=== PATIENT | female | born 1965 | race Caucasian/White ===

== ENCOUNTER → 2016-07-16 | Outpatient (CLI) | payer BC ==
--- NOTE | 2016-07-16 16:49 | US ---
EXAMINATION TYPE: US thyroid st tissue head/neck DATE OF EXAM: 07/16/2016 4:02 PM COMPARISON: 04/09/2016 CLINICAL HISTORY: 51-year-old female E04.1 Thyroid nodule. Follow-up exam. TECHNIQUE: Multiple sonographic images of the thyroid gland are obtained. FINDINGS: GLAND SIZE: Right Lobe: 4.0 x 1.6 x 1.3 cm Overall Parenchyma: homogenous Left Lobe: 4.3 x 1.2 x 1.2 cm Overall Parenchyma: homogeneous Isthmus Thickness: 0.2 cm NODULES RIGHT: # of nodules measured on right: 1 1. 0.2 X 0.2 x 0.3 cm hypoechoic solid nodule at the upper pole with well-defined margins. This nod ule is wider than tall and shows no intranodular vascularity. Prior size: 0.4 x 0.2 x 0.3 cm LEFT: # of nodules measured on left: 1 1. 0.2 X 0.2 x 0.2 cm hypoechoic solid nodule at the mid pole with well-defined margins. This nodu le is wider than tall and shows no intranodular vascularity. Prior size: 0.3 x 0.2 x 0.2 cm ISTHMUS: # of nodules measured in the isthmus: 0 Bilateral neck scanned, no abnormal lymphadenopathy noted. IMPRESSION: A tiny subcentimeter nodule on each side measuring 3 mm on the right and 2 mm on the left, not signif icantly changed.
== END | disposition home or self-care (01) ==
LOC: RADUSWWP 15:37
PROVIDERS: ATTEND Family Medicine
DX: E04.2 Nontoxic multinodular goiter (principal)
CPT/HCPCS: 76536

== ENCOUNTER → 2016-07-16 | Outpatient (CLI) | payer BC ==
--- NOTE | 2016-07-20 08:06 | MM ---
Reason for exam: screening (asymptomatic). Last mammogram was performed 1 year and 3 months ago. History: Patient is postmenopausal. Family history of breast cancer in maternal aunt at age 53 and breast cancer in maternal cousin. Reductions of both breasts, March 2012. Benign right mammotome panel of the right breast, May 25, 2010. Benign excisional biopsy of the right breast, July 24, 2007. Benign US right core biopsy of the right breast, July 14, 2007. Took hormonal contraceptives for 5 years beginning at age 16. Physical Findings: A clinical breast exam by your physician is recommended on an annual basis and results should be correlated with mammographic findings. MG 3D Screening Mammo W/Cad Bilateral CC and MLO view(s) were taken. Prior study comparison: April 21, 2015, bilateral MG 3d screening mammo w/cad. September 06, 2014, bilateral MG diagnostic mammo w CAD DEAN. Previous mammotome biopsy in the right breast. No significant changes when compared with prior studies. ASSESSMENT: Benign, BI-RAD 2 RECOMMENDATION: Routine screening mammogram of both breasts in 1 year.
== END | disposition home or self-care (01) ==
LOC: RADMAMWWP 15:34
PROVIDERS: ATTEND Family Medicine
DX: Z12.31 Encounter for screening mammogram for malignant neoplasm of breast (principal)
CPT/HCPCS: 77063; G0202

== ENCOUNTER → 2017-02-04 | Outpatient (CLI) | payer BC ==
--- NOTE | 2017-02-04 16:08 | MR ---
EXAMINATION TYPE: MR lumbar spine wo/w con DATE OF EXAM: 02/04/2017 COMPARISON: MR lumbar spine dated 09/17/2015 HISTORY: Low back pain radiating to the right lower extremity TECHNIQUE: Multiplanar, multisequence images of the lumbar spine were acquired utilizing 10 mL intravenous Gadav ist contrast. Lumbar segments are intact the transitional vertebrae is again noted at the lumbosacral junction. Mul tilevel intervertebral disc desiccation and loss of intervertebral disc height is again seen at L4-5 and L5-S1. No paraspinal masses are identified. Conus medullaris has a normal appearance. No abnorm al enhancement on postcontrast images. L1-L2: Normal disc appearance without desiccation. No herniation, protrusion or disc bulging. No ca nal stenosis is present. Foramina are patent bilaterally. L2-L3: Normal disc appearance without desiccation. No herniation, protrusion or disc bulging. No ca nal stenosis is present. Foramina are patent bilaterally. L3-L4: Small broad-based disc bulge is seen with right lateral small annular fissure. Mild facet arth ropathy and ligamentum flavum buckling are seen. No spinal canal stenosis or neural foraminal narrowi ng. L4-L5: Broad-based right eccentric disc bulge is seen in combination with facet arthropathy creating mild right neural foraminal narrowing. Ligamentum flavum buckling is noted. Spinal canal and left moody ral foramen are patent. Small superior T2/T1 hyperintense vertebral body hemangioma seen at this leve l. L5-S1: Type II Modic degenerative endplate changes are appreciated. There is a broad-based disc bulge and facet arthropathy without neural foraminal narrowing or spinal canal stenosis. IMPRESSION: 1. No discrete disc herniation or spinal canal stenosis. 2. Multilevel degenerative disc disease with a right eccentric disc bulge at L4-L5 creating mild righ t neural foraminal narrowing.
== END | disposition home or self-care (01) ==
LOC: RADMRIMAIN 13:41
PROVIDERS: ATTEND Psychiatry & Neurology Neurology
DX: M99.73 Connective tissue and disc stenosis of intervertebral foramina of lumbar region (principal); M51.16 Intervertebral disc disorders with radiculopathy, lumbar region
CPT/HCPCS: 72158; A9581

== ENCOUNTER → 2017-02-04 | Outpatient (CLI) | payer BC ==
--- NOTE | 2017-02-05 14:03 | US ---
EXAMINATION TYPE: US thyroid st tissue head/neck DATE OF EXAM: 02/04/2017 COMPARISON: 07/16/2016 and 04/08/2016 CLINICAL HISTORY: E04.1 Nontoxic single thyroid nodule. GLAND SIZE: Right Lobe: 3.9 x 0.9 x 1.1 cm Overall Parenchyma: heterogenous Left Lobe: 3.7 x 1.2 x 1.1 cm Overall Parenchyma: heterogeneous Isthmus Thickness: 0.2 cm NODULES RIGHT: # of nodules measured on right: 1 1. 0.2 X 0.2 x 0.3 cm hypoechoic solid nodule at the upper pole with well-defined margins; . This nodule is wider than tall and shows no intranodular vascularity. Prior size: 0.2 x 0.2 x 0.3 cm LEFT: # of nodules measured on left: 1. 0.3 X 0.2 x 0.3 cm hypoechoic solid nodule at the upper/mid pole with well-defined margins; . T his nodule is taller than wide and shows no intranodular vascularity. Prior size: 0.2 x 0.2 x 0.2 cm ISTHMUS: # of nodules measured in the isthmus: 0 Bilateral neck scanned, no evidence of lymphadenopathy. IMPRESSION: Similar appearing bilateral subcentimeter thyroid nodules with no significant change in a nonenlarged thyroid gland.
== END | disposition home or self-care (01) ==
LOC: RADUSWWP 15:43
PROVIDERS: ATTEND Family Medicine
DX: E04.1 Nontoxic single thyroid nodule (principal)
CPT/HCPCS: 76536

== ENCOUNTER 2017-04-18 14:06 | Emergency (ER) | payer BC ==
[2017-04-18] MEDS ORDERED: SODIUM CHLORIDE 0.9% 500 ML IV STA (15:32)
[2017-04-18] MEDS ORDERED: RX INFO: IV CONTRAST WAS GIVEN 1 EACH MISC MISCELLANE PRN (15:32)
[2017-04-18] MEDS ORDERED: ONDANSETRON 4 MG/2 ML VIAL IVP STA (15:44)
[2017-04-18] MEDS ORDERED: HYDROmorphone 0.5 MG/0.5 ML SYRINGE IVP STA (15:44)
[2017-04-18 16:00] LABS: Appearance,Urine Clear (Clear); Basophils # (A) 0.1 k/uL (0-0.2); Basophils % (A) 1 %; Bilirubin,Urine Negative (Negative); CHCM 32.9; Eosinophils # (A) 0.3 k/uL (0-0.7); Eosinophils % (A) 4 %; Glucose,Urine (UA) Negative (Negative); HCT 45.5 % (34.0-46.0); HDW 2.46; HGB 14.8 gm/dL (11.4-16.0); Ketones,Urine Negative (Negative); Leukocyte Esterase,Urine Negative (Negative); Luc # (Auto) 0.26; Luc % (Auto) 3; Lymphocytes # (A) 2.1 k/uL (1.0-4.8); Lymphocytes % (A) 27 %; MCH 28.8 pg (25.0-35.0); MCHC 32.5 g/dL (31.0-37.0); MCV 88.7 fL (80.0-100.0); Mean Platelet Volume 7.3; Monocytes # (A) 0.4 k/uL (0-1.0); Monocytes % (A) 5 %; Neutrophils # (A) 4.5 k/uL (1.3-7.7); Neutrophils % (A) 59 %; Nitrite,Urine Negative (Negative); Protein,Urine Negative (Negative); RBC 5.13 m/uL (3.80-5.40); Specific Gravity,Urine 1.003 (1.001-1.035); UA Billing (MACRO vs. MICRO) CHEM; Urobilinogen,Urine <2.0 mg/dL (<2.0); WBC 7.6 k/uL (3.8-10.6); WBC (Perox) 7.48
[2017-04-18 16:08] LABS: ALT 48 U/L (9-52); AST 32 U/L (14-36); Alkaline Phosphatase 69 U/L (38-126); Amylase 59 U/L (30-110); Anion Gap 9 mmol/L; Blood Urea Nitrogen 10 mg/dL (7-17); Calcium 9.8 mg/dL (8.4-10.2); Carbon Dioxide 27 mmol/L (22-30); Chloride 103 mmol/L (98-107); Glucose 85 mg/dL (74-99); Non-African American GFR(MDRD) 58 (>60 ml/min/1.73 sqM); Potassium 4.3 mmol/L (3.5-5.1); Sodium 139 mmol/L (137-145); Total Bilirubin 0.3 mg/dL (0.2-1.3); Total Protein 7.9 g/dL (6.3-8.2)
--- NOTE | 2017-04-18 16:12 | ED ---
Abdominal Pain HPI - General Chief Complaint: Abdominal Pain Stated Complaint: vomiting/diarrhea Time Seen by Provider: 04/18/17 15:32 Source: patient, RN notes reviewed Mode of arrival: ambulatory Limitations: no limitations - History of Present Illness Initial Comments: 52-year-old female presents emergency Department chief complaint abdominal pain. Patient is having worsening symptoms over the last week or so. Patient states that she's had multiple abdominal surgeries including cholecystectomy, gastric stapling, abdominoplasty, hysterectomy, and hiatal hernia repair. Patient states that recently she's been having pain over her epigastric the left side states those it's worse when she eats and she has to have a bowel movement. She states it spend more diarrhea than usual. Patient states that she also feels small bulging towards her periumbilical region. Patient denies chest pain or shortness breath. Denies fever or chills. - Related Data Home Medications Medication Instructions Recorded Confirmed ALPRAZolam [Xanax] 0.5 mg PO BID PRN 06/11/15 04/18/17 Omeprazole [PriLOSEC] 20 mg PO BID 06/11/15 04/18/17 oxyCODONE-APAP 10-325MG [Percocet 1 tab PO QID PRN 06/11/15 04/18/17 10-325 mg] Fluticasone/Salmeterol [Advair 1 puff PO RT-BID PRN 04/18/17 04/18/17 250-50 Diskus] Gabapentin [Neurontin] 1 tab PO DAILY 04/18/17 04/18/17 Previous Rx's Medication Instructions Recorded Metoclopramide [Reglan] 10 mg PO TID PRN #15 tab 04/18/17 Sucralfate [Carafate] 1 gm PO BID #14 tablet 04/18/17 Allergies Allergy/AdvReac Type Severity Reaction Status Date / Time Sulfa (Sulfonamide Allergy Unknown Verified 04/18/17 16:05 Antibiotics) Review of Systems ROS Statement: Those systems with pertinent positive or pertinent negative responses have been documented in the HPI. ROS Other: All systems not noted in ROS Statement are negative. Past Medical History Past Medical History: Asthma, GERD/Reflux, Hyperlipidemia, Musculoskeletal Disorder, Osteoarthritis (OA), Sleep Apnea/CPAP/BIPAP Additional Past Medical History / Comment(s): SLEEP APNEA (NO C-PAP), MIGRAINES , 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 History of Any Multi-Drug Resistant Organisms: MRSA Date of last positivie culture/infection: 2012 MDRO Source:: breast, arm abdomen Past Surgical History: Back Surgery, Breast Surgery, Cholecystectomy, Hysterectomy, Orthopedic Surgery Additional Past Surgical History / Comment(s): abdominal plasty ,gastric stapling(1982), LEFT KNEE SURG X3., BREAST REDUCTION. Past Anesthesia/Blood Transfusion Reactions: Motion Sickness, Postoperative Nausea & Vomiting (PONV) Additional Past Anesthesia/Blood Transfusion Reaction / Comment(s): PTS MOTHER SEPTIC FROM BLOOD TRANSFUSION. Past Psychological History: Anxiety Smoking Status: Current every day smoker Past Alcohol Use History: None Reported Past Drug Use History: None Reported - Past Family History Father Family Medical History: Cancer Additional Family Medical History / Comment(s): ESOPHAGEAL CANCER Mother Family Medical History: Cancer Additional Family Medical History / Comment(s): PANCREATIC CANCER General Exam Limitations: no limitations General appearance: alert, in no apparent distress Head exam: Present: atraumatic, normocephalic, normal inspection Respiratory exam: Present: normal lung sounds bilaterally. Absent: respiratory distress, wheezes, rales, rhonchi, stridor Cardiovascular Exam: Present: regular rate, normal rhythm, normal heart sounds. Absent: systolic murmur, diastolic murmur, rubs, gallop, clicks GI/Abdominal exam: Present: soft, tenderness (Mild epigastric to left upper quadrant tenderness, mild tenderness in the periumbilical region), normal bowel sounds. Absent: distended, guarding, rebound, rigid Back exam: Absent: CVA tenderness (R), CVA tenderness (L) Skin exam: Present: warm, dry, intact, normal color. Absent: rash Course Vital Signs 04/18/17 04/18/17 14:30 16:44 Temperature 98.1 F 98 F Pulse Rate 88 80 Respiratory 20 18 Rate Blood Pressure 132/89 115/65 O2 Sat by Pulse 98 98 Oximetry Medical Decision Making - Medical Decision Making 52-year-old female presents emergency Department with chief complaint of abdominal pain. Patient CT does show invoke hernia which is reducible on exam. Patient does have some early satiety concerns for peptic ulcer disease or hiatal hernia. Patient may need EGD we did discuss this. Patient will be discharged on Carafate and Reglan. Return parameters were discussed. - Lab Data Result diagrams: 04/18/17 15:40 04/18/17 15:40 Lab Results 04/18/17 04/18/17 04/18/17 Range/Units 15:40 15:40 15:40 WBC 7.6 (3.8-10.6) k/uL RBC 5.13 (3.80-5.40) m/uL Hgb 14.8 (11.4-16.0) gm/dL Hct 45.5 (34.0-46.0) % MCV 88.7 (80.0-100.0) fL MCH 28.8 (25.0-35.0) pg MCHC 32.5 (31.0-37.0) g/dL RDW 14.0 (11.5-15.5) % Plt Count 374 (150-450) k/uL Neutrophils % 59 % Lymphocytes % 27 % Monocytes % 5 % Eosinophils % 4 % Basophils % 1 % Neutrophils # 4.5 (1.3-7.7) k/uL Lymphocytes # 2.1 (1.0-4.8) k/uL Monocytes # 0.4 (0-1.0) k/uL Eosinophils # 0.3 (0-0.7) k/uL Basophils # 0.1 (0-0.2) k/uL Sodium 139 (137-145) mmol/L Potassium 4.3 (3.5-5.1) mmol/L Chloride 103 (98-107) mmol/L Carbon Dioxide 27 (22-30) mmol/L Anion Gap 9 mmol/L BUN 10 (7-17) mg/dL Creatinine 1.00 (0.52-1.04) mg/dL Est GFR (MDRD) Af Amer >60 (>60 ml/min/1.73 sqM) Est GFR (MDRD) Non-Af 58 (>60 ml/min/1.73 sqM) Glucose 85 (74-99) mg/dL Plasma Lactic Acid Javi 1.3 (0.7-2.0) mmol/L Calcium 9.8 (8.4-10.2) mg/dL Total Bilirubin 0.3 (0.2-1.3) mg/dL AST 32 (14-36) U/L ALT 48 (9-52) U/L Alkaline Phosphatase 69 (38-126) U/L Total Protein 7.9 (6.3-8.2) g/dL Albumin 4.6 (3.5-5.0) g/dL Amylase 59 (30-110) U/L Lipase 171 (23-300) U/L Urine Color Urine Appearance (Clear) Urine pH (5.0-8.0) Ur Specific Garrison (1.001-1.035) Urine Protein (Negative) Urine Glucose (UA) (Negative) Urine Ketones (Negative) Urine Blood (Negative) Urine Nitrite (Negative) Urine Bilirubin (Negative) Urine Urobilinogen (<2.0) mg/dL Ur Leukocyte Esterase (Negative) 04/18/17 Range/Units 15:40 WBC (3.8-10.6) k/uL RBC (3.80-5.40) m/uL Hgb (11.4-16.0) gm/dL Hct (34.0-46.0) % MCV (80.0-100.0) fL MCH (25.0-35.0) pg MCHC (31.0-37.0) g/dL RDW (11.5-15.5) % Plt Count (150-450) k/uL Neutrophils % % Lymphocytes % % Monocytes % % Eosinophils % % Basophils % % Neutrophils # (1.3-7.7) k/uL Lymphocytes # (1.0-4.8) k/uL Monocytes # (0-1.0) k/uL Eosinophils # (0-0.7) k/uL Basophils # (0-0.2) k/uL Sodium (137-145) mmol/L Potassium (3.5-5.1) mmol/L Chloride (98-107) mmol/L Carbon Dioxide (22-30) mmol/L Anion Gap mmol/L BUN (7-17) mg/dL Creatinine (0.52-1.04) mg/dL Est GFR (MDRD) Af Amer (>60 ml/min/1.73 sqM) Est GFR (MDRD) Non-Af (>60 ml/min/1.73 sqM) Glucose (74-99) mg/dL Plasma Lactic Acid Javi (0.7-2.0) mmol/L Calcium (8.4-10.2) mg/dL Total Bilirubin (0.2-1.3) mg/dL AST (14-36) U/L ALT (9-52) U/L Alkaline Phosphatase (38-126) U/L Total Protein (6.3-8.2) g/dL Albumin (3.5-5.0) g/dL Amylase (30-110) U/L Lipase (23-300) U/L Urine Color Colorless Urine Appearance Clear (Clear) Urine pH 5.0 (5.0-8.0) Ur Specific Garrison 1.003 (1.001-1.035) Urine Protein Negative (Negative) Urine Glucose (UA) Negative (Negative) Urine Ketones Negative (Negative) Urine Blood Negative (Negative) Urine Nitrite Negative (Negative) Urine Bilirubin Negative (Negative) Urine Urobilinogen <2.0 (<2.0) mg/dL Ur Leukocyte Esterase Negative (Negative) Disposition Clinical Impression: Abdominal pain, Umbilical hernia, Gastritis Disposition: HOME SELF-CARE Condition: Stable Instructions: Abdominal Pain (ED) Additional Instructions: Please return to the Emergency Department if symptoms worsen or any other concerns. Prescriptions: Metoclopramide [Reglan] 10 mg PO TID PRN #15 tab PRN Reason: GERD Sucralfate [Carafate] 1 gm PO BID #14 tablet Referrals: Rohan Russell DO [Primary Care Provider] - 1-2 days Damaris Mcintosh MD [STAFF PHYSICIAN] - 1-2 days Maria Victoria Glynn MD [STAFF PHYSICIAN] - 1-2 days Time of Disposition: 17:17
[2017-04-18 16:44] VITALS: PULSE 80; RESP 18
--- NOTE | 2017-04-18 17:08 | CT ---
EXAMINATION TYPE: CT abdomen pelvis w con DATE OF EXAM: 04/18/2017 COMPARISON: NONE HISTORY: Patient complains of epigastric pain, nausea, vomiting, bloating, and diarrhea. CT DLP: 1484.7 mGycm Automated exposure control for dose reduction was used. TECHNIQUE: Helical acquisition of images was performed from the lung bases through the pelvis. CONTRAST: Performed without Oral Contrast and with IV Contrast, patient injected with 100 mL of Omnipaque 300. FINDINGS: Lung bases are clear of consolidation. There is no pleural effusion. There is evidence of fatty infil tration of the liver. There are surgical clips from apparent bariatric surgery. Bile ducts are not di lated. Spleen appears normal. There is no pancreatic mass. Gallbladder is absent. There is no adrenal mass. Kidneys show satisfactory contrast opacification. There is no hydronephrosi s. There is a hernia at the umbilicus with a loop of small bowel in the hernia. There is no evidence of a bowel obstruction. There is no free air. There is no ascites. Appendix appe ars normal. There are spondylotic changes in the lumbar spine. Bladder distends smoothly. There is no sign of a pelvic mass.: IMPRESSION: UMBILICAL HERNIA CONTAINS A LOOP OF SMALL BOWEL BUT NO EVIDENCE OF A BOWEL OBSTRUCTION. THIS MEASURES 3 CM. FATTY INFILTRATION OF THE LIVER. PREVIOUS BARIATRIC SURGERY. NORMAL APPENDIX.
[2017-04-18 17:52] VITALS: BP 111/65; TEMP 98.5
== END 2017-04-18 17:52 | disposition home or self-care (01) ==
LOC: EC 14:06
DX: K42.9 Umbilical hernia without obstruction or gangrene (principal); K29.70 Gastritis, unspecified, without bleeding; K21.9 Gastro-esophageal reflux disease without esophagitis; F17.200 Nicotine dependence, unspecified, uncomplicated; Z86.14 Personal history of Methicillin resistant Staphylococcus aureus infection; Z90.49 Acquired absence of other specified parts of digestive tract; Z88.2 Allergy status to sulfonamides; Z79.899 Other long term (current) drug therapy
CPT/HCPCS: 99284; 96374; 96375; 96361; 36415; 80053; 82150; 83605; 83690; 85025; 81003; 74177; J2405; Q9967; J1170

== ENCOUNTER → 2017-06-24 | Outpatient (CLI) | payer BC ==
[2017-06-24 13:57] LABS: HCT 43.3 % (34.0-46.0); HGB 13.7 gm/dL (11.4-16.0); MCH 27.9 pg (25.0-35.0); MCHC 31.6 g/dL (31.0-37.0); MCV 88.3 fL (80.0-100.0); Mean Platelet Volume 7.4; Platelet Count 380 k/uL (150-450); RDW 15.4 % (11.5-15.5); WBC 10.5 k/uL (3.8-10.6)
[2017-06-24 14:06] LABS: ALT 36 U/L (9-52); AST 29 U/L (14-36); Anion Gap 10 mmol/L; Blood Urea Nitrogen 14 mg/dL (7-17); Carbon Dioxide 29 mmol/L (22-30); Chloride 101 mmol/L (98-107); Cholesterol 220 mg/dL (<200); Creatine Kinase 75 U/L (30-135); Glucose 95 mg/dL (74-99); HDL Cholesterol 54 mg/dL (40-60); LDL Cholesterol,Calculated 135 mg/dL (0-99); Potassium 4.6 mmol/L (3.5-5.1); Sodium 140 mmol/L (137-145); Triglycerides 157 mg/dL (<150)
[2017-06-24 14:25] LABS: Appearance,Urine Clear (Clear); Bilirubin,Urine Negative (Negative); Blood,Urine Negative (Negative); Color,Urine Yellow; Glucose,Urine (UA) Negative (Negative); Ketones,Urine Negative (Negative); Leukocyte Esterase,Urine Negative (Negative); Nitrite,Urine Negative (Negative); PH, Urine 5.5 (5.0-8.0); Protein,Urine Trace (Negative); Specific Gravity,Urine 1.024 (1.001-1.035)
[2017-06-24 18:49] LABS: Vitamin D 25 Hydroxy 8.6 ng/mL (30.0-100.0)
[2017-06-24 19:33] LABS: Hepatitis C IgG Antibody Non-Reactive (Non-Reactive)
[2017-06-24 22:00] LABS: Hemoglobin A1C 5.7 % (4.0-6.0)
== END | disposition home or self-care (01) ==
LOC: LABWHC1 13:16
PROVIDERS: ATTEND Family Medicine
DX: Z00.00 Encounter for general adult medical examination without abnormal findings (principal); E78.5 Hyperlipidemia, unspecified; E66.9 Obesity, unspecified
CPT/HCPCS: 36415; 80048; 80061; 81003; 82306; 82550; 83036; 84439; 84443; 84450; 84460; 85027; 86803

== ENCOUNTER 2017-07-14 11:17 | Inpatient (IN) | payer BC ==
[2017-07-14] MEDS ORDERED: IPRATROPIUM-ALBUTEROL 3 ML NEB INHALATION STA (11:53)
[2017-07-14] MEDS ORDERED: methylPREDNISolone SOD SUCCI 125 MG/2 ML VIAL IV STA (11:53)
--- NOTE | 2017-07-14 11:58 | ED ---
URI HPI - General Chief Complaint: Upper Respiratory Infection Stated Complaint: poss flu, anil x 6 days Time Seen by Provider: 07/14/17 11:45 Source: patient Mode of arrival: ambulatory Limitations: no limitations - History of Present Illness Initial Comments: This 52-year-old white female presents with a complaint of difficulty in breathing. She has had a cough with clear watery production. She has had the symptoms for approximately 7 days. She complains of chest and nasal congestion. She denies any actual chest pain. She has had a fever of up to 104 at times. She states that it is worse if she lays down flat. It seems to be worsening over the past week. She has tried home breathing treatments with little relief. She does have a history of MRSA in her lungs. She is requesting a sputum sample to be tested. She is unsure if she has been exposed to influenza. She denies any other complaints or modifying factors. - Related Data Home Medications Medication Instructions Recorded Confirmed ALPRAZolam [Xanax] 0.5 mg PO BID PRN 06/11/15 07/14/17 Omeprazole [PriLOSEC] 20 mg PO DAILY 06/11/15 07/14/17 oxyCODONE-APAP 10-325MG [Percocet 1 tab PO Q6H PRN 06/11/15 07/14/17 10-325 mg] Fluticasone/Salmeterol [Advair 1 puff PO RT-BID 04/18/17 07/14/17 250-50 Diskus] Albuterol Inhaler [Ventolin Hfa 1 - 2 puff INHALATION RT-QID PRN 07/14/17 Inhaler] Albuterol Nebulized [Ventolin 2.5 mg INHALATION RT-QID PRN 07/14/17 07/14/17 Nebulized] Eszopiclone [Lunesta] 3 mg PO HS PRN 07/14/17 07/14/17 Gabapentin [Neurontin] 100 mg PO HS 07/14/17 07/14/17 Allergies Allergy/AdvReac Type Severity Reaction Status Date / Time Sulfa (Sulfonamide Allergy Rash/Hives Verified 07/14/17 12:35 Antibiotics) Review of Systems ROS Statement: Those systems with pertinent positive or pertinent negative responses have been documented in the HPI. ROS Other: All systems not noted in ROS Statement are negative. Past Medical History Past Medical History: Asthma, GERD/Reflux, Hyperlipidemia, Musculoskeletal Disorder, Osteoarthritis (OA), Sleep Apnea/CPAP/BIPAP Additional Past Medical History / Comment(s): SLEEP APNEA (NO C-PAP), MIGRAINES , 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 History of Any Multi-Drug Resistant Organisms: MRSA Date of last positivie culture/infection: 2012 MDRO Source:: breast, arm abdomen Past Surgical History: Back Surgery, Breast Surgery, Cholecystectomy, Hysterectomy, Orthopedic Surgery Additional Past Surgical History / Comment(s): abdominal plasty ,gastric stapling(1982), LEFT KNEE SURG X3., BREAST REDUCTION. Past Anesthesia/Blood Transfusion Reactions: Motion Sickness, Postoperative Nausea & Vomiting (PONV) Additional Past Anesthesia/Blood Transfusion Reaction / Comment(s): PTS MOTHER SEPTIC FROM BLOOD TRANSFUSION. Past Psychological History: Anxiety Smoking Status: Current every day smoker Past Alcohol Use History: None Reported Past Drug Use History: None Reported - Past Family History Father Family Medical History: Cancer Additional Family Medical History / Comment(s): ESOPHAGEAL CANCER Mother Family Medical History: Cancer Additional Family Medical History / Comment(s): PANCREATIC CANCER General Exam - General Exam Comments Initial Comments: GENERAL: The patient is well nourished and well hydrated. VITAL SIGNS: Heart rate, blood pressure, respiratory rate reviewed as recorded in nurse's notes. EYES: Pupils are round and reactive. Extraocular movements are intact. No conjunctival / lid redness or swelling. ENT: No external evidence of injury, swelling, or ecchymosis. Airway is patent. Throat is clear. There is moderate nasal congestion noted. NECK: Nontender. No swelling or evidence of injury. No subcutaneous emphysema. Trachea is midline. No thyroid mass. HEART: Regular rate and rhythm. Good peripheral pulses. LUNGS/CHEST: Wheezing is noted bilaterally. No ecchymosis, subcutaneous emphysema, or tenderness. ABDOMEN: Abdomen soft without tenderness. No palpable masses or organomegaly. No peritoneal signs. No abdominal wall swelling or ecchymosis. EXTREMITIES: No extremity tenderness. Normal muscle tone and function. No thoracolumbar tenderness. NEUROLOGIC: Sensation is grossly intact. Cranial nerve exam reveals face is symmetrical, tongue is midline, speech is clear. SKIN: No abrasions or ecchymosis is noted. No induration or masses noted. PSYCHIATRIC: Alert and oriented. Appropriate behavior and judgment. Limitations: no limitations Course Vital Signs 07/14/17 07/14/17 07/14/17 11:40 12:26 12:36 Temperature 98.0 F Pulse Rate 81 81 88 Respiratory 22 Rate Blood Pressure 130/81 O2 Sat by Pulse 97 Oximetry 07/14/17 07/14/17 07/14/17 13:24 13:55 14:07 Temperature 98.0 F Pulse Rate 81 85 86 Respiratory 18 Rate Blood Pressure 153/64 O2 Sat by Pulse 96 Oximetry 07/14/17 15:30 Temperature 98.3 F Pulse Rate 64 Respiratory 18 Rate Blood Pressure 129/66 O2 Sat by Pulse 95 Oximetry Medical Decision Making - Medical Decision Making The patient is seen and examined. All diagnostics are reviewed. She does receive a double DuoNeb breathing treatment as well as Solu-Medrol 125 mg IV. The EKG shows a normal sinus rhythm at a rate of 79. There is no acute ST-T wave changes identified. The AR intervals 120, QRS duration is 86, and the QTC intervals 456. The laboratory is reviewed and overall is fairly unremarkable. The influenza is negative. The patient had a computed tomography scan of her thorax with IV contrast and this does show a groundglass type of interstitial appearance with lymphadenopathy with a large differential. Please see the report for detail. This very likely could be infectious. The patient still is having significant bronchospasm on recheck. She is given a double albuterol treatment. She is also complaining of pain in her posterior thoracic region and is given some Dilaudid. She is started on IV antibiotics. She is feeling somewhat improved on recheck. She further relates that she had a 45 day ICU stay for MRSA pneumonia about 3 years ago at [facility]. Given her history, persistent bronchospasm, and CT findings this felt as though she benefit from admission to the hospital with further pulmonology consult. She is agreeable. The case is discussed with Dr. Willett has not and he is agreeable with admission with pulmonary to consult. - Lab Data Result diagrams: 07/14/17 12:30 07/14/17 12:30 Lab Results 07/14/17 07/14/17 07/14/17 Range/Units 12:30 12:30 12:30 WBC 7.7 (3.8-10.6) k/uL RBC 4.77 (3.80-5.40) m/uL Hgb 13.5 (11.4-16.0) gm/dL Hct 42.5 (34.0-46.0) % MCV 89.0 (80.0-100.0) fL MCH 28.3 (25.0-35.0) pg MCHC 31.8 (31.0-37.0) g/dL RDW 14.7 (11.5-15.5) % Plt Count 324 (150-450) k/uL Neutrophils % 62 % Lymphocytes % 26 % Monocytes % 7 % Eosinophils % 3 % Basophils % 1 % Neutrophils # 4.7 (1.3-7.7) k/uL Lymphocytes # 2.0 (1.0-4.8) k/uL Monocytes # 0.6 (0-1.0) k/uL Eosinophils # 0.2 (0-0.7) k/uL Basophils # 0.0 (0-0.2) k/uL PT (9.0-12.0) sec INR (<1.2) APTT (22.0-30.0) sec Sodium 140 (137-145) mmol/L Potassium 3.9 (3.5-5.1) mmol/L Chloride 102 (98-107) mmol/L Carbon Dioxide 25 (22-30) mmol/L Anion Gap 13 mmol/L BUN 13 (7-17) mg/dL Creatinine 0.79 (0.52-1.04) mg/dL Est GFR (MDRD) Af Amer >60 (>60 ml/min/1.73 sqM) Est GFR (MDRD) Non-Af >60 (>60 ml/min/1.73 sqM) Glucose 107 H (74-99) mg/dL Calcium 9.1 (8.4-10.2) mg/dL Total Bilirubin 0.4 (0.2-1.3) mg/dL AST 32 (14-36) U/L ALT 48 (9-52) U/L Alkaline Phosphatase 85 (38-126) U/L Total Creatine Kinase 48 (30-135) U/L CK-MB (CK-2) 0.3 (0.0-2.4) ng/mL CK-MB (CK-2) Rel Index 0.6 Troponin I <0.012 (0.000-0.034) ng/mL NT-Pro-B Natriuret Pep pg/mL Total Protein 7.2 (6.3-8.2) g/dL Albumin 3.9 (3.5-5.0) g/dL Influenza Type A RNA (Not Detectd) Influenza Type B (PCR) (Not Detectd) 07/14/17 07/14/17 07/14/17 Range/Units 12:30 12:30 12:30 WBC (3.8-10.6) k/uL RBC (3.80-5.40) m/uL Hgb (11.4-16.0) gm/dL Hct (34.0-46.0) % MCV (80.0-100.0) fL MCH (25.0-35.0) pg MCHC (31.0-37.0) g/dL RDW (11.5-15.5) % Plt Count (150-450) k/uL Neutrophils % % Lymphocytes % % Monocytes % % Eosinophils % % Basophils % % Neutrophils # (1.3-7.7) k/uL Lymphocytes # (1.0-4.8) k/uL Monocytes # (0-1.0) k/uL Eosinophils # (0-0.7) k/uL Basophils # (0-0.2) k/uL PT 9.4 (9.0-12.0) sec INR 0.9 (<1.2) APTT 22.3 (22.0-30.0) sec Sodium (137-145) mmol/L Potassium (3.5-5.1) mmol/L Chloride (98-107) mmol/L Carbon Dioxide (22-30) mmol/L Anion Gap mmol/L BUN (7-17) mg/dL Creatinine (0.52-1.04) mg/dL Est GFR (MDRD) Af Amer (>60 ml/min/1.73 sqM) Est GFR (MDRD) Non-Af (>60 ml/min/1.73 sqM) Glucose (74-99) mg/dL Calcium (8.4-10.2) mg/dL Total Bilirubin (0.2-1.3) mg/dL AST (14-36) U/L ALT (9-52) U/L Alkaline Phosphatase (38-126) U/L Total Creatine Kinase (30-135) U/L CK-MB (CK-2) (0.0-2.4) ng/mL CK-MB (CK-2) Rel Index Troponin I (0.000-0.034) ng/mL NT-Pro-B Natriuret Pep 101 pg/mL Total Protein (6.3-8.2) g/dL Albumin (3.5-5.0) g/dL Influenza Type A RNA Not Detected (Not Detectd) Influenza Type B (PCR) Not Detected (Not Detectd) Disposition Clinical Impression: Cough, Dyspnea, Bronchospasm, Acute respiratory distress, Ground glass opacity present on imaging of lung, Tracheobronchitis, Thoracic back pain Disposition: ADMITTED IP TO THIS HOSP Condition: Fair Referrals: Rohan Russell DO [Primary Care Provider] - 1-2 days Time of Disposition: 16:33 Decision Date: 07/14/17 Decision Time: 16:33
[2017-07-14 12:44] LABS: Basophils % (A) 1 %; Eosinophils # (A) 0.2 k/uL (0-0.7); Eosinophils % (A) 3 %; HCT 42.5 % (34.0-46.0); HGB 13.5 gm/dL (11.4-16.0); Lymphocytes % (A) 26 %; MCH 28.3 pg (25.0-35.0); MCHC 31.8 g/dL (31.0-37.0); Mean Platelet Volume 7.1; Monocytes # (A) 0.6 k/uL (0-1.0); Monocytes % (A) 7 %; Neutrophils # (A) 4.7 k/uL (1.3-7.7); Neutrophils % (A) 62 %; Platelet Count 324 k/uL (150-450); RBC 4.77 m/uL (3.80-5.40); RDW 14.7 % (11.5-15.5); WBC 7.7 k/uL (3.8-10.6)
[2017-07-14 12:55] LABS: ALT 48 U/L (9-52); AST 32 U/L (14-36); Albumin 3.9 g/dL (3.5-5.0); Alkaline Phosphatase 85 U/L (38-126); Anion Gap 13 mmol/L; Blood Urea Nitrogen 13 mg/dL (7-17); Calcium 9.1 mg/dL (8.4-10.2); Carbon Dioxide 25 mmol/L (22-30); Chloride 102 mmol/L (98-107); Glucose 107 mg/dL (74-99); Potassium 3.9 mmol/L (3.5-5.1); Sodium 140 mmol/L (137-145); Total Bilirubin 0.4 mg/dL (0.2-1.3); Total Protein 7.2 g/dL (6.3-8.2)
--- NOTE | 2017-07-14 12:57 | XR ---
EXAMINATION TYPE: XR chest 2V DATE OF EXAM: 07/14/2017 COMPARISON: Prior chest x-ray 11/25/2014 HISTORY: Difficulty breathing, shortness of breath and cough TECHNIQUE: Frontal and lateral views of the chest are obtained. FINDINGS: There is no focal air space opacity, pleural effusion, or pneumothorax seen, lung shows st able appearance, volumes are increased. The cardiac silhouette size is within normal limits. The o sseous structures are intact. IMPRESSION: No acute cardiopulmonary process.
[2017-07-14 13:01] LABS: INR 0.9 (<1.2); Partial Thromboplastin Time 22.3 sec (22.0-30.0); Prothrombin Time 9.4 sec (9.0-12.0)
[2017-07-14 13:10] LABS: Creatine Kinase 48 U/L (30-135)
[2017-07-14 13:21] LABS: Creatine Kinase MB 0.3 ng/mL (0.0-2.4); Troponin I <0.012 ng/mL (0.000-0.034)
[2017-07-14] MEDS ORDERED: cefTRIAXone IN SWFI 1,000 MG/10 ML SYRINGE IVP STA (13:42)
[2017-07-14] MEDS ORDERED: ALBUTEROL NEBULIZED 2.5 MG/3 ML INHALATION STA (13:42)
[2017-07-14] MEDS ORDERED: KETOROLAC 30 MG/ML 1 ML VIAL IVP STA (13:43)
[2017-07-14] MEDS ORDERED: RX INFO: IV CONTRAST WAS GIVEN 1 EACH MISC MISCELLANE PRN (13:43)
[2017-07-14] MEDS ORDERED: HYDROmorphone 0.5 MG/0.5 ML SYRINGE IVP STA ×2 (13:49→13:52)
--- NOTE | 2017-07-14 15:08 | CT ---
EXAMINATION TYPE: CT angio chest DATE OF EXAM: 07/14/2017 COMPARISON: Chest x-ray same date HISTORY: Patient complains of chest congestion and difficulty breathing. CT DLP: 484.1 mGycm Automated exposure control for dose reduction was used. CONTRAST: CTA scan of the thorax is performed with IV Contrast, patient injected with 100 mL of Omnipaque 350, pulmonary embolism protocol. MIP images are created and reviewed. 3D reconstructed images are creat ed on an independent workstation and reviewed. FINDINGS: LUNGS: Scattered areas of groundglass opacity are present within the bilateral lungs, some minimal pa raseptal emphysematous changes are present on the right. Scattered areas of groundglass opacity also present in the lower lobes. There is no pleural or pericardial effusion. AORTA: No additional significant abnormality is seen. MEDIASTINUM: Prevascular nodes are present, there is an enlarged prevascular, retrocaval and free tra cheal, and right hilar nodes, aorticopulmonary window nodes are shotty. Subcarinal node is present. C ontrast opacification of the pulmonary arteries is limited to exclude pulmonary embolism. OTHER: Postop changes are noted to the stomach. The liver shows low attenuation compatible with hepa tic steatosis. Calcified punctate focus in the spleen likely due to old granulomatous disease. IMPRESSION: EXAM IS LIMITED TO EXCLUDE PULMONARY EMBOLISM. NO ADENOPATHY, GROUNDGLASS FOCI WITHIN THE LUNGS WITH ADENOPATHY, DIFFERENTIAL DIAGNOSTIC CONSIDERATI ONS INCLUDE GRANULOMATOUS DISEASE BUT INFECTIOUS AND NONINFECTIOUS, SARCOID, GRANULOMATOSIS WITH POLY ANGIITIS, ALVEOLITIS OPPORTUNISTIC INFECTION, CONSIDER PULMONARY CONSULT.
[2017-07-14] MEDS ORDERED: AZITHROMYCIN 500 MG in SODIUM CHLORIDE 0.9% 250 ML IVPB STA (17:03)
[2017-07-14] MEDS ORDERED: ACETAMINOPHEN TAB 325 MG TAB PO PRN (17:04)
[2017-07-14] MEDS ORDERED: ONDANSETRON 4 MG/2 ML VIAL IVP PRN (17:04)
[2017-07-14] MEDS ORDERED: NALOXONE 0.4 MG/ML 1 ML VIAL IV PRN (17:04)
[2017-07-14] MEDS ORDERED: oxyCODONE-APAP 10-325MG 1 EACH TAB PO PRN (17:06)
[2017-07-14] MEDS ORDERED: TEMAZEPAM 30 MG CAP PO PRN (17:06)
[2017-07-14] MEDS: HYDROmorphone 0.5 MG/0.5 ML SYRINGE IVP PRN ×2 (17:42→20:22)
[2017-07-14] MEDS ORDERED: methylPREDNISolone SOD SUCCI 125 MG/2 ML VIAL IV SCH (18:00)
--- NOTE | 2017-07-14 18:29 | P.HPIM ---
History of Present Illness 52-year-old white female presents with a complaint of difficulty in breathing. She has had a cough with clear watery production. She has had the symptoms for approximately 7 days. She complains of chest and nasal congestion. She denies any actual chest pain. She has had a fever of up to 104 at times. She states that it is worse if she lays down flat. It seems to be worsening over the past week. She has tried home breathing treatments with little relief. She does have a history of MRSA in her lungs. A she used to smoke about 5-10 cigars a day smoker until 4 days ago after which she became quite sick and was unable to smoke since then smoked for about 20 years. Never was diagnosed with COPD patient is feeling much better now with systemic steroids she received in ER. Patient is was fever free yesterday and today patient is afebrile here. 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 Denied any history of autoimmune diseases in the family. Patient is complaining of orthopnea and episodes of proximal nocturnal dyspnea, she cannot lie flat in bed because of shortness of breath and she does have very minimal pedal edema Patient underwent excess evaluation any other including CT of the chest which showed groundglass a opacities. Brain natriuretic peptide is only 100. Patient does not have any leukocytosis at this time. Review of Systems REVIEW OF SYSTEMS: CONSTITUTIONAL: No fever, no malaise, no fatigue. HEENT: No recent visual problems or hearing problems. Denied any sore throat. CARDIOVASCULAR: No chest pain, no palpitations, no syncope. PULMONARY: no hemoptysis. GASTROINTESTINAL: No diarrhea, no nausea, no vomiting, no abdominal pain. Normoactive bowel sounds. NEUROLOGICAL: No headaches, no weakness, no numbness. HEMATOLOGICAL: Denies any bleeding or petechiae. GENITOURINARY: Denies any burning micturition, frequency, or urgency. MUSCULOSKELETAL/RHEUMATOLOGICAL: Denies any joint pain, swelling, or any muscle pain. ENDOCRINE: Denies any polyuria or polydipsia. The rest of the 14-point review of systems is negative. Past Medical History Past Medical History: Asthma, GERD/Reflux, Hyperlipidemia, Musculoskeletal Disorder, Osteoarthritis (OA), Sleep Apnea/CPAP/BIPAP Additional Past Medical History / Comment(s): SLEEP APNEA (NO C-PAP), MIGRAINES , 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 History of Any Multi-Drug Resistant Organisms: MRSA Date of last positivie culture/infection: 2012 MDRO Source:: breast, arm abdomen Past Surgical History: Back Surgery, Breast Surgery, Cholecystectomy, Hysterectomy, Orthopedic Surgery Additional Past Surgical History / Comment(s): abdominal plasty ,gastric stapling(1982), LEFT KNEE SURG X3., BREAST REDUCTION. Past Anesthesia/Blood Transfusion Reactions: Motion Sickness, Postoperative Nausea & Vomiting (PONV) Additional Past Anesthesia/Blood Transfusion Reaction / Comment(s): PTS MOTHER SEPTIC FROM BLOOD TRANSFUSION. Past Psychological History: Anxiety Smoking Status: Current every day smoker Past Alcohol Use History: None Reported Past Drug Use History: None Reported - Past Family History Father Family Medical History: Cancer Additional Family Medical History / Comment(s): ESOPHAGEAL CANCER Mother Family Medical History: Cancer Additional Family Medical History / Comment(s): PANCREATIC CANCER Medications and Allergies Home Medications Medication Instructions Recorded Confirmed Type ALPRAZolam [Xanax] 0.5 mg PO BID PRN 06/11/15 07/14/17 History Omeprazole [PriLOSEC] 20 mg PO DAILY 06/11/15 07/14/17 History oxyCODONE-APAP 10-325MG [Percocet 1 tab PO Q6H PRN 06/11/15 07/14/17 History 10-325 mg] Fluticasone/Salmeterol [Advair 1 puff PO RT-BID 04/18/17 07/14/17 History 250-50 Diskus] Albuterol Inhaler [Ventolin Hfa 1 - 2 puff INHALATION RT-QID PRN 07/14/17 History Inhaler] Albuterol Nebulized [Ventolin 2.5 mg INHALATION RT-QID PRN 07/14/17 07/14/17 History Nebulized] Eszopiclone [Lunesta] 3 mg PO HS PRN 07/14/17 07/14/17 History Gabapentin [Neurontin] 100 mg PO HS 07/14/17 07/14/17 History Allergies Allergy/AdvReac Type Severity Reaction Status Date / Time Sulfa (Sulfonamide Allergy Rash/Hives Verified 07/14/17 12:35 Antibiotics) Physical Exam Vitals: Vital Signs Temp Pulse Resp BP Pulse Ox 07/14/17 17:37 97.8 F 87 18 122/69 96 07/14/17 15:30 98.3 F 64 18 129/66 95 07/14/17 14:07 86 07/14/17 13:55 85 07/14/17 13:24 98.0 F 81 18 153/64 96 07/14/17 12:36 88 07/14/17 12:26 81 07/14/17 11:40 98.0 F 81 22 130/81 97 Intake and Output 07/14/17 07/14/17 07/14/17 06:59 14:59 22:59 Other: Weight 97.976 kg Patient Weight 07/15/17 06:59 Weight 97.976 kg PHYSICAL EXAMINATION: GENERAL: The patient is alert and oriented x3, not in any acute distress. Well developed, well nourished. HEENT: Pupils are round and equally reacting to light. EOMI. No scleral icterus. No conjunctival pallor. Normocephalic, atraumatic. No pharyngeal erythema. No thyromegaly. CARDIOVASCULAR: S1 and S2 present. No murmurs, rubs, or gallops. PULMONARY: Good airway movement in bilateral lung shrestha, rhonchorous breath sounds, there may be minimal expiratory wheezing ABDOMEN: Soft, nontender, nondistended, normoactive bowel sounds. No palpable organomegaly. MUSCULOSKELETAL: No joint swelling or deformity. EXTREMITIES: No cyanosis, clubbing, or pedal edema. NEUROLOGICAL: Gross neurological examination did not reveal any focal deficits. SKIN: No rashes. Results CBC & Chem 7: 07/14/17 12:30 07/14/17 12:30 Labs: Abnormal Lab Results - Last 24 Hours (Table) 07/14/17 Range/Units 12:30 Glucose 107 H (74-99) mg/dL Thrombosis Risk Factor Assmnt - Choose All That Apply Any of the Below Risk Factors Present?: Yes Each Factor Represents 1 point: Age 41-60 years, Obesity (BMI >25) Other Risk Factors: No Other congenital or acquired thrombophilia - If yes, enter type in comment: No Thrombosis Risk Factor Assessment Total Risk Factor Score: 2 Thrombosis Risk Factor Assessment Level: Low Risk Assessment and Plan Plan: -Shortness of breath: Computed tomography scan findings of ground glass obesities, clinically patient does not appear to have CHF, will obtain echocardiogram. Patient most probably has atypical pneumonia, urine Legionella antigen and mycoplasma IgM antibodies will be obtained, patient's antibiotics will be switched to IV levofloxacin. The other differentials include interstitial lung disease, pulmonology was consulted there may be a competent of COPD as well. Patient is on systemic steroids which will be continued. -Nicotine abuse: Counseling was provided -Hyperlipidemia -Sleep apnea: Patient will continue her CPAP machine. -Gastroesophageal reflux disease Prilosec will be continued
[2017-07-14] MEDS: SYMBICORT 80-4.5 MCG INHALER INHALATION SCH (19:08)
[2017-07-14] MEDS ORDERED: IPRATROPIUM-ALBUTEROL 3 ML NEB INHALATION PRN (19:14)
[2017-07-14] MEDS: IPRATROPIUM-ALBUTEROL 3 ML NEB INHALATION SCH (19:21)
[2017-07-14] MEDS ORDERED: BUDESONIDE 0.5 MG/2 ML NEBU INHALATION SCH (20:00)
[2017-07-14] MEDS ORDERED: IPRATROPIUM-ALBUTEROL 3 ML NEB INHALATION SCH (20:00)
[2017-07-14] MEDS: LEVOFLOXACIN 500MG-D5W PMX 500 MG in DEXTROSE/WATER 1 100ML.BAG IVPB SCH (20:17)
[2017-07-14] MEDS: GABAPENTIN 100 MG CAP PO SCH (20:17)
[2017-07-14] MEDS: ALPRAZolam 0.5 MG TAB PO PRN (20:22)
[2017-07-14 21:35] LABS: Glucose,Whole Blood 222 mg/dL (75-99)
[2017-07-14] MEDS: INSULIN ASPART 100 UNIT/ML 1 ML 10 ML VIAL SQ SCH (22:09)
[2017-07-14] MEDS: methylPREDNISolone SOD SUCCI 40 MG/ML 1 ML VIAL IV SCH (22:10)
[2017-07-15] MEDS: HYDROmorphone 0.5 MG/0.5 ML SYRINGE IVP PRN ×2 (02:17→12:45)
[2017-07-15 04:02] LABS: Hemoglobin A1C 5.6 % (4.0-6.0)
[2017-07-15] MEDS: IPRATROPIUM-ALBUTEROL 3 ML NEB INHALATION SCH ×4 (07:03→19:01)
[2017-07-15] MEDS: SYMBICORT 80-4.5 MCG INHALER INHALATION SCH ×2 (07:03→19:01)
[2017-07-15 07:06] LABS: Glucose,Whole Blood 154 mg/dL (75-99)
[2017-07-15] MEDS ORDERED: PANTOPRAZOLE 40 MG TABLET PO SCH (07:30)
[2017-07-15] MEDS ORDERED: PANTOPRAZOLE 40 MG/10 ML VIAL IV SCH (09:00)
[2017-07-15 09:03] LABS: HCT 40.6 % (34.0-46.0); HGB 12.9 gm/dL (11.4-16.0); MCH 28.4 pg (25.0-35.0); MCHC 31.8 g/dL (31.0-37.0); MCV 89.3 fL (80.0-100.0); Mean Platelet Volume 7.2; Platelet Count 323 k/uL (150-450); RBC 4.54 m/uL (3.80-5.40); RDW 14.5 % (11.5-15.5); WBC 13.1 k/uL (3.8-10.6)
[2017-07-15 09:17] LABS: Anion Gap 14 mmol/L; Blood Urea Nitrogen 15 mg/dL (7-17); Calcium 9.8 mg/dL (8.4-10.2); Carbon Dioxide 25 mmol/L (22-30); Chloride 101 mmol/L (98-107); Glucose 154 mg/dL (74-99); Sodium 140 mmol/L (137-145)
[2017-07-15] MEDS: INSULIN ASPART 100 UNIT/ML 1 ML 10 ML VIAL SQ SCH ×4 (09:19→21:13)
[2017-07-15] MEDS: ENOXAPARIN 40 MG/0.4 ML SYRINGE SQ SCH (09:20)
[2017-07-15] MEDS: methylPREDNISolone SOD SUCCI 40 MG/ML 1 ML VIAL IV SCH ×3 (09:20→21:12)
[2017-07-15 09:21] VITALS: BMI 37.0
[2017-07-15 11:36] LABS: Glucose,Whole Blood 142 mg/dL (75-99)
[2017-07-15] MEDS ORDERED: cefTRIAXone IN SWFI 1,000 MG/10 ML SYRINGE IVP SCH (12:00)
[2017-07-15] MEDS: ALPRAZolam 0.5 MG TAB PO PRN (12:45)
--- NOTE | 2017-07-15 14:59 | P.PN ---
Subjective Patient was admitted with shortness of breath and fever possibility of atypical pneumonia or interstitial lung disease and pulmonology will evaluated the patient patient is on levofloxacin at this time and systemic strides at this time and patient has significantly improved respiratory status compared to yesterday although respiratory exam remains the same. Constitutional: Denied any fatigue denied any fever. Cardio vascular: denied any chest pain, palpitations Gastrointestinal denied any nausea vomiting Pulmonary: Denied any shortness of breath Neurologic denied any new focal deficits Objective - Vital Signs Vital signs: Vital Signs Temp 97.0 F L 07/15/17 05:26 Pulse 80 07/15/17 11:15 Resp 14 07/15/17 05:26 BP 103/75 07/15/17 05:26 Pulse Ox 96 07/15/17 05:26 Intake & Output 07/14/17 07/15/17 07/15/17 18:59 06:59 18:59 Weight 97.976 kg 97.976 kg Other: Voiding Method Toilet Toilet # Voids 1 - Exam PHYSICAL EXAMINATION: GENERAL: The patient is alert and oriented x3, not in any acute distress. Well developed, well nourished. HEENT: Pupils are round and equally reacting to light. EOMI. No scleral icterus. No conjunctival pallor. Normocephalic, atraumatic. No pharyngeal erythema. No thyromegaly. CARDIOVASCULAR: S1 and S2 present. No murmurs, rubs, or gallops. PULMONARY: Good airway movement in bilateral lung shrestha, rhonchorous breath sounds, there may be minimal expiratory wheezing ABDOMEN: Soft, nontender, nondistended, normoactive bowel sounds. No palpable organomegaly. MUSCULOSKELETAL: No joint swelling or deformity. EXTREMITIES: No cyanosis, clubbing, or pedal edema. NEUROLOGICAL: Gross neurological examination did not reveal any focal deficits. SKIN: No rashes. - Labs CBC & Chem 7: 07/15/17 08:09 07/15/17 08:09 Labs: Abnormal Lab Results - Last 24 Hours (Table) 07/14/17 07/15/17 07/15/17 Range/Units 21:26 07:03 08:09 WBC 13.1 H (3.8-10.6) k/uL Glucose (74-99) mg/dL POC Glucose (mg/dL) 222 H 154 H (75-99) mg/dL 07/15/17 07/15/17 Range/Units 08:09 11:31 WBC (3.8-10.6) k/uL Glucose 154 H (74-99) mg/dL POC Glucose (mg/dL) 142 H (75-99) mg/dL Microbiology - Last 24 Hours (Table) 07/14/17 20:28 Gram Stain - Preliminary Sputum Sputum Culture - Preliminary Assessment and Plan Plan: -Shortness of breath: Computed tomography scan findings of ground glass obesities, clinically patient does not appear to have CHF, will obtain echocardiogram. Patient most probably has atypical pneumonia, urine Legionella antigen and mycoplasma IgM antibodies will be obtained, patient's antibiotics will be switched to IV levofloxacin. The other differentials include interstitial lung disease, pulmonology was consulted there may be a competent of COPD as well. Patient is on systemic steroids which will be continued. -Nicotine abuse: Counseling was provided -Hyperlipidemia -Sleep apnea: Patient will continue her CPAP machine. -Gastroesophageal reflux disease Prilosec will be continued
[2017-07-15] MEDS ORDERED: AZITHROMYCIN 500 MG in SODIUM CHLORIDE 0.9% 250 ML IVPB SCH (16:00)
[2017-07-15] MEDS: HYDROmorphone 2 MG TAB PO PRN ×2 (16:48→21:23)
[2017-07-15] MEDS: PANTOPRAZOLE 40 MG TABLET PO SCH (16:48)
--- NOTE | 2017-07-15 16:50 | P.CNPUL ---
History of Present Illness Consult date: 07/15/17 Requesting physician: Gabriele Crump Reason for consult: dyspnea, cough, COPD Chief complaint: Dyspnea, chest congestion, cough, fever, chills, body aches History of present illness: Eulalia is a 52-year-old white female patient of Dr. Rohan Russell, who presented to the emergency department on 07/14/2017 at 1117 with complaints of a weeklong history of high fevers, body aches, chills, cough, and chest congestion. Patient reports being cold, clammy, sweaty. Her cough was initially productive of green sputum, it is now clear. Her fevers were as high as 104F at home. She denies any sick contacts, but at work she is exposed to a large number of people on the daily basis. Patient is a current smoker, smokes a quarter pack a day for 20 years. Her history of EtOH or illicit drugs. She has a mild obstructive sleep apnea, she did have a sleep study and was told her sleep apnea was borderline, and hence no CPAP therapy was prescribed, other medical history includes asthma, GERD/reflux, hyperlipidemia, osteoarthritis, chronic back pain, with history of back surgeries, multiple abdominal surgeries including gastric stapling for weight loss in 1982, cholecystectomy, hysterectomy, multiple laparotomies, hernia repair. Most recently patient had an abdominal hernia repair by Dr. Jones with mesh placement on 05/02/2017 at [facility]. Patient also has a history of MRSA infection in her abdominal wound, in her breast reduction incision, and MRSA pneumonia which required intensive care management and ventilator management back in 2014 at [facility]. Patient was then treated with infusions of vancomycin, which was later switched to Zyvox. Patient had a complete recovery following that hospitalization. She had seen a events director in the past, who did tell her she has an underlying history of COPD. She is not on any home oxygen, she is on albuterol updrafts on as-needed basis, Advair and Pro-Air. Dr. Russell manages her COPD. While inpatient patient has been afebrile, she is on room air with O2 sat 95%. Chest x-ray from 07/14/2017 showed increased lung volumes consistent with COPD, but no acute cardiopulmonary process. CTA chest from 07/14/2017, the exam was limited to exclude pulmonary embolism. There is groundglass foci within the lungs with adenopathy, and the differential diagnostic consideration include granulomatous disease, infectious or noninfectious, sarcoidosis, granulomatosis with polyangiitis, alveolitis or opportunistic infection. Lab work initially showed no evidence of leukocytosis, WBC of 7.7, hemoglobin is 13.5, no signs of coagulopathy, renal profile and electrolyte profile was within normal limits. Troponin and cardiac enzymes were negative 1, proBNP was within normal limits at 101. Influenza screen was negative. Patient was started on a combination Rocephin and Zithromax which was later switched to Levaquin, IV steroids, and nebulized treatments. Review of Systems All systems: negative Constitutional: Denies chills, Denies fever Eyes: denies blurred vision, denies pain Ears, nose, mouth and throat: Denies headache, Denies sore throat Cardiovascular: Denies chest pain, Denies shortness of breath Respiratory: Denies cough Gastrointestinal: Denies abdominal pain, Denies diarrhea, Denies nausea, Denies vomiting Genitourinary: Denies dysuria, Denies hematuria Musculoskeletal: Denies myalgias Integumentary: Denies pruritus, Denies rash Neurological: Denies numbness, Denies weakness Psychiatric: Denies anxiety, Denies depression Endocrine: Denies fatigue, Denies weight change Past Medical History Past Medical History: Asthma, GERD/Reflux, Hyperlipidemia, Musculoskeletal Disorder, Osteoarthritis (OA), Sleep Apnea/CPAP/BIPAP Additional Past Medical History / Comment(s): SLEEP APNEA (NO C-PAP), MIGRAINES , 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 History of Any Multi-Drug Resistant Organisms: MRSA Date of last positivie culture/infection: 2012 MDRO Source:: breast, arm abdomen Past Surgical History: Back Surgery, Breast Surgery, Cholecystectomy, Hysterectomy, Orthopedic Surgery Additional Past Surgical History / Comment(s): abdominal plasty ,gastric stapling(1982), LEFT KNEE SURG X3., BREAST REDUCTION. Past Anesthesia/Blood Transfusion Reactions: Motion Sickness, Postoperative Nausea & Vomiting (PONV) Additional Past Anesthesia/Blood Transfusion Reaction / Comment(s): PTS MOTHER SEPTIC FROM BLOOD TRANSFUSION. Smoking Status: Current every day smoker - Past Family History Father Family Medical History: Cancer Additional Family Medical History / Comment(s): ESOPHAGEAL CANCER Mother Family Medical History: Cancer Additional Family Medical History / Comment(s): PANCREATIC CANCER Medications and Allergies Home Medications Medication Instructions Recorded Confirmed Type ALPRAZolam [Xanax] 0.5 mg PO BID PRN 06/11/15 07/14/17 History Omeprazole [PriLOSEC] 20 mg PO DAILY 06/11/15 07/14/17 History oxyCODONE-APAP 10-325MG [Percocet 1 tab PO Q6H PRN 06/11/15 07/14/17 History 10-325 mg] Fluticasone/Salmeterol [Advair 1 puff PO RT-BID 04/18/17 07/14/17 History 250-50 Diskus] Albuterol Inhaler [Ventolin Hfa 1 - 2 puff INHALATION RT-QID PRN 07/14/17 History Inhaler] Albuterol Nebulized [Ventolin 2.5 mg INHALATION RT-QID PRN 07/14/17 07/14/17 History Nebulized] Eszopiclone [Lunesta] 3 mg PO HS PRN 07/14/17 07/14/17 History Gabapentin [Neurontin] 100 mg PO HS 07/14/17 07/14/17 History Allergies Allergy/AdvReac Type Severity Reaction Status Date / Time Sulfa (Sulfonamide Allergy Rash/Hives Verified 07/14/17 12:35 Antibiotics) Physical Exam Vitals: Vital Signs Temp Pulse Pulse Resp BP BP Pulse Ox 07/15/17 07:15 84 07/15/17 07:05 80 07/15/17 05:26 97.0 F L 70 14 103/75 96 07/14/17 22:56 96.7 F L 82 16 93/75 95 07/14/17 19:20 86 07/14/17 19:12 86 07/14/17 17:37 97.8 F 87 18 122/69 96 07/14/17 15:30 98.3 F 64 18 129/66 95 07/14/17 14:07 86 07/14/17 13:55 85 07/14/17 13:24 98.0 F 81 18 153/64 96 07/14/17 12:36 88 07/14/17 12:26 81 07/14/17 11:40 98.0 F 81 22 130/81 97 Intake and Output 07/14/17 07/15/17 07/15/17 22:59 06:59 14:59 Other: Voiding Method Toilet # Voids 1 1 Weight 97.976 kg Patient Weight 07/16/17 06:59 Weight 97.976 kg GENERAL EXAM: Alert, pleasant, obese 52-year-old female comfortable in no apparent distress. HEAD: Normocephalic/atraumatic. EYES: Normal reaction of pupils, equal size. Conjunctiva pink, sclera white. NOSE: Clear with pink turbinates. THROAT: No erythema or exudates. NECK: No masses, no JVD, no thyroid enlargement, no adenopathy. CHEST: No chest wall deformity. Symmetrical expansion. LUNGS: Equal air entry with scattered rhonchi, and expiratory wheezing CVS: Regular rate and rhythm, normal S1 and S2, no gallops, no murmurs, no rubs ABDOMEN: Soft, nontender. No hepatosplenomegaly, normal bowel sounds, no guarding or rigidity. EXTREMITIES: No clubbing, no edema, no cyanosis, 2+ pulses and upper and lower extremities. MUSCULOSKELETAL: Muscle strength and tone normal. SPINE: No scoliosis or deformity SKIN: No rashes CENTRAL NERVOUS SYSTEM: Alert and oriented -3. No focal deficits, tone is normal in all 4 extremities. PSYCHIATRIC: Alert and oriented -3. Appropriate affect. Intact judgment and insight. Results - Laboratory Findings CBC and BMP: 07/15/17 08:09 07/15/17 08:09 PT/INR, D-dimer PT 9.4 sec (9.0-12.0) 07/14/17 12:30 INR 0.9 (<1.2) 07/14/17 12:30 Abnormal lab findings: Abnormal Labs 07/14/17 07/14/17 07/15/17 12:30 21:26 07:03 WBC Glucose 107 H POC Glucose (mg/dL) 222 H 154 H 07/15/17 07/15/17 08:09 08:09 WBC 13.1 H Glucose 154 H POC Glucose (mg/dL) - Diagnostic Findings Chest x-ray: report reviewed CT scan - chest: report reviewed Assessment and Plan Plan: Assessment: #1. Acute multifocal community-acquired pneumonia. Patient presented with febrile illness, dyspnea, cough with production of yellow sputum. CTA chest positive for groundglass opacities with adenopathy, consistent with multifocal pneumonia. #2. Acute exacerbation of COPD secondary to the above #3. Recent abdominal hernia repair with placement of mesh by Dr. Jones on 05/02, with complete recovery. Surgical incisions on the abdomen are well healed #4. History of multiple abdominal surgeries, including gastric stapling in 1982 , cholecystectomy, hysterectomy, laparotomies #5. History of MRSA pneumonia in 2014, requiring intubation and mechanical ventilation. #6. History of MRSA in the abdominal wound and postsurgical breast reduction wound in 2012 #7. Nicotine dependence, ongoing, patient carries 20 year smoking history, currently down to 5 cigarettes a day #8. Obstructive sleep apnea, patient was told he was borderline, and no CPAP therapy was prescribed #9. History of chronic back pain, with history of back surgeries, rotator cuff surgery #10. Obesity #11. GERD/reflux disease Plan: Continue current plan of treatment, continue IV steroids, continue Levaquin. Continue nebulized treatments, Symbicort. CTA chest shows evidence of multifocal pneumonia, and patient clearly had a clinical symptoms to go along with the radiographic evidence. Smoking cessation was advised. Patient has significant GERD/reflux which can further exacerbate COPD, we will increase the dose of Protonix to twice daily. I performed a history & physical examination of the patient and discussed their management with my nurse practitioner, Brigette Tomlinson. I reviewed the nurse practitioner's note and agree with the documented findings and plan of care. Lung sounds are positive for expiratory wheezing and scattered rhonchi. The findings and the impression was discussed with the patient. I attest to the documentation by the nurse practitioner.
[2017-07-15 17:04] LABS: Glucose,Whole Blood 165 mg/dL (75-99)
[2017-07-15] MEDS: LEVOFLOXACIN 500MG-D5W PMX 500 MG in DEXTROSE/WATER 1 100ML.BAG IVPB SCH (18:16)
[2017-07-15 20:31] LABS: Glucose,Whole Blood 165 mg/dL (75-99)
[2017-07-15] MEDS: GABAPENTIN 100 MG CAP PO SCH (21:12)
[2017-07-15] MEDS: ZOLPIDEM 5 MG TAB PO PRN (21:22)
[2017-07-16 07:13] LABS: Glucose,Whole Blood 130 mg/dL (75-99)
[2017-07-16] MEDS: INSULIN ASPART 100 UNIT/ML 1 ML 10 ML VIAL SQ SCH ×4 (07:25→23:45)
[2017-07-16] MEDS: SYMBICORT 80-4.5 MCG INHALER INHALATION SCH ×2 (07:30→20:04)
[2017-07-16] MEDS: IPRATROPIUM-ALBUTEROL 3 ML NEB INHALATION SCH ×4 (07:30→20:05)
[2017-07-16] MEDS: methylPREDNISolone SOD SUCCI 40 MG/ML 1 ML VIAL IV SCH ×3 (07:49→20:28)
[2017-07-16] MEDS: HYDROmorphone 2 MG TAB PO PRN ×6 (07:49→23:44)
[2017-07-16] MEDS: PANTOPRAZOLE 40 MG TABLET PO SCH ×2 (07:49→14:54)
[2017-07-16] MEDS: ENOXAPARIN 40 MG/0.4 ML SYRINGE SQ SCH (07:49)
[2017-07-16] MEDS: ALPRAZolam 0.5 MG TAB PO PRN (11:42)
[2017-07-16 12:30] LABS: Glucose,Whole Blood 111 mg/dL (75-99)
--- NOTE | 2017-07-16 13:52 | P.PN ---
Subjective Progress Note Date: 07/16/17 Principal diagnosis: Acute multifocal community-acquired pneumonia. Eulalia is a 52-year-old white female patient of Dr. Rohan Russell, who presented to the emergency department on 07/14/2017 at 1117 with complaints of a weeklong history of high fevers, body aches, chills, cough, and chest congestion. Patient reports being cold, clammy, sweaty. Her cough was initially productive of green sputum, it is now clear. Her fevers were as high as 104F at home. She denies any sick contacts, but at work she is exposed to a large number of people on the daily basis. Patient is a current smoker, smokes a quarter pack a day for 20 years. Her history of EtOH or illicit drugs. She has a mild obstructive sleep apnea, she did have a sleep study and was told her sleep apnea was borderline, and hence no CPAP therapy was prescribed, other medical history includes asthma, GERD/reflux, hyperlipidemia, osteoarthritis, chronic back pain, with history of back surgeries, multiple abdominal surgeries including gastric stapling for weight loss in 1982, cholecystectomy, hysterectomy, multiple laparotomies, hernia repair. Most recently patient had an abdominal hernia repair by Dr. Jones with mesh placement on 05/02/2017 at [facility]. Patient also has a history of MRSA infection in her abdominal wound, in her breast reduction incision, and MRSA pneumonia which required intensive care management and ventilator management back in 2014 at [facility]. Patient was then treated with infusions of vancomycin, which was later switched to Zyvox. Patient had a complete recovery following that hospitalization. She had seen a military education coordinator in the past, who did tell her she has an underlying history of COPD. She is not on any home oxygen, she is on albuterol updrafts on as-needed basis, Advair and Pro-Air. Dr. Russell manages her COPD. While inpatient patient has been afebrile, she is on room air with O2 sat 95%. Chest x-ray from 07/14/2017 showed increased lung volumes consistent with COPD, but no acute cardiopulmonary process. CTA chest from 07/14/2017, the exam was limited to exclude pulmonary embolism. There is groundglass foci within the lungs with adenopathy, and the differential diagnostic consideration include granulomatous disease, infectious or noninfectious, sarcoidosis, granulomatosis with polyangiitis, alveolitis or opportunistic infection. Lab work initially showed no evidence of leukocytosis, WBC of 7.7, hemoglobin is 13.5, no signs of coagulopathy, renal profile and electrolyte profile was within normal limits. Troponin and cardiac enzymes were negative 1, proBNP was within normal limits at 101. Influenza screen was negative. Patient was started on a combination Rocephin and Zithromax which was later switched to Levaquin, IV steroids, and nebulized treatments. The patient is seen again today 07/16/2017 in follow-up on the regular medical floor. She is awake and alert in no acute distress. She is breathing a little better today as compared to yesterday but not quite back to her baseline. She has a loose nonproductive cough. She did have night sweats. Currently afebrile. Hemodynamically stable. Maintaining good O2 saturations in the 90s on room air. Preliminary sputum showing rare gram-positive cocci. Currently on Levaquin. Objective - Vital Signs Vital signs: Vital Signs Temp 97.0 F L 07/16/17 07:00 Pulse 76 07/16/17 11:16 Resp 18 07/16/17 07:00 BP 114/78 07/16/17 07:00 Pulse Ox 95 07/16/17 07:00 Intake & Output 07/15/17 07/16/17 07/16/17 18:59 06:59 18:59 Intake Total 960 Balance 960 Weight 97.976 kg Intake: Oral 960 Other: Voiding Method Toilet # Voids 1 2 2 # Bowel Movements 1 0 - Exam GENERAL EXAM: Alert, active, comfortable in no apparent distress. HEAD: Normocephalic. EYES: Normal reaction of pupils, equal size. NOSE: Clear with pink turbinates. THROAT: No erythema or exudates. NECK: No masses, no JVD. CHEST: No chest wall deformity. LUNGS: Equal air entry with bilateral scattered rhonchi, wheezing. CVS: S1 and S2 normal with no audible murmur, regular rhythm. ABDOMEN: No hepatosplenomegaly, normal bowel sounds, no guarding or rigidity. SPINE: No scoliosis or deformity SKIN: No rashes CENTRAL NERVOUS SYSTEM: No focal deficits, tone is normal in all 4 extremities. EXTREMITIES: There is no peripheral edema. No clubbing, no cyanosis. Peripheral pulses are intact. - Labs CBC & Chem 7: 07/15/17 08:09 07/15/17 08:09 Labs: Abnormal Lab Results - Last 24 Hours (Table) 07/15/17 07/15/17 07/16/17 Range/Units 17:01 20:25 07:11 POC Glucose (mg/dL) 165 H 165 H 130 H (75-99) mg/dL 07/16/17 Range/Units 12:28 POC Glucose (mg/dL) 111 H (75-99) mg/dL Assessment and Plan Assessment: Assessment: #1. Acute multifocal community-acquired pneumonia. Patient presented with febrile illness, dyspnea, cough with production of yellow sputum. CTA chest positive for groundglass opacities with adenopathy, consistent with multifocal pneumonia. #2. Acute exacerbation of COPD secondary to the above #3. Recent abdominal hernia repair with placement of mesh by Dr. Jones on 05/02, with complete recovery. Surgical incisions on the abdomen are well healed #4. History of multiple abdominal surgeries, including gastric stapling in 1982 , cholecystectomy, hysterectomy, laparotomies #5. History of MRSA pneumonia in 2014, requiring intubation and mechanical ventilation. #6. History of MRSA in the abdominal wound and postsurgical breast reduction wound in 2012 #7. Nicotine dependence, ongoing, patient carries 20 year smoking history, currently down to 5 cigarettes a day #8. Obstructive sleep apnea, patient was told she was borderline, and no CPAP therapy was prescribed #9. History of chronic back pain, with history of back surgeries, rotator cuff surgery #10. Obesity #11. GERD/reflux disease Plan: The patient was seen and evaluated by Dr. Matt. We'll continue with her current treatment plan. We'll await final culture results. We will increase her activity as tolerated. We'll continue to follow and make further recommendations based on her clinical status. I, the cosigning physician, performed a history & physical examination of the patient. Lungs sounds have bilateral scattered rhonchi, wheeze. Maintaining good O2 saturations in the 90s on room air. I discussed the assessment and plan of care with my nurse practitioner, Jess Gaston. I attest to the above note as dictated by her.
[2017-07-16 17:15] LABS: Glucose,Whole Blood 162 mg/dL (75-99)
[2017-07-16] MEDS: GABAPENTIN 100 MG CAP PO SCH (20:28)
[2017-07-16 20:56] LABS: Glucose,Whole Blood 178 mg/dL (75-99)
[2017-07-16] MEDS: LEVOFLOXACIN 500 MG TAB PO SCH (20:56)
--- NOTE | 2017-07-16 22:20 | P.PN ---
Progress Note - Text Progress Note Date: 07/16/17 Date of service: 07/16/2017 Presenting complaint: Short of breath cough Interval history: Patient noted with pneumonia with cough and sputum. Negative for influenza. Today-appetite is fair. Coughing or sputum of different colors. Wheezing. Been up to the bathroom. Tired. Review of systems: Was done for constitutional, cardiovascular, GI, pulmonary. relevant finding as above Current medications are reviewed and include: Nebulized bronchodilator, IV Solu-Medrol, Levaquin On examination: VITAL SIGNS: 96.5, 84, 18, 97/58, 93% room air GENERAL APPEARANCE: Sitting up in bed tired appearing. HEENT: Normal external appearance of nose and ear. Oral cavity normal EYES: Pupils equal. Conjunctiva normal. NECK: JVD not raised. Mass not palpable. RESPIRATORY: Respiratory effort increased, lungsbreath sounds, but the story wheezing, with some coarse expiratory crackles. CARDIOVASCULAR: First and second sounds normal. No edema. ABDOMEN: Soft. Liver and spleen not palpable. No tenderness. No mass palpable. PSYCHIATRY: Alert and oriented x3. Mood and affect normal. Investigations: White count 13.1, hemoglobin troponin, potassium 4, BUN/creatinine normal Influenza negative Assessment: -Multilobar pneumonia, suspected gram-negative organism, present on admission -Acute COPD exacerbation and a current smoker -Chronic nicotine dependence patient active cigarette smoker -Obesity BMI 37.1 -Chronic GERD -Hyperlipidemia -Primary osteoarthritis of multiple joints -Obstructive sleep apnea does not use CPAP - chronic cervical spine pain from herniated disc for which patient is on chronic pain medications Plan: Continue with neb last bronchodilator, IV Solu-Medrol, and antibiotic. Care was discussed in detail with the patient and patient's daughter the bedside. Patient being followed by pulmonary Smoking cessation counseling: This was done at length with the patient and her daughter and her boyfriend. Many aspects of smoking were discussed including COPD and other complications worsening and financial impact down the road. Nicotine patch is being given. This was done for about 20 minutes
[2017-07-16] MEDS: ZOLPIDEM 5 MG TAB PO PRN (23:44)
[2017-07-16] MEDS: NICOTINE 14MG/24HR PATCH TRANSDERM SCH (23:47)
[2017-07-17] MEDS: HYDROmorphone 2 MG TAB PO PRN ×7 (04:14→23:20)
[2017-07-17 07:29] LABS: Glucose,Whole Blood 109 mg/dL (75-99)
[2017-07-17] MEDS: INSULIN ASPART 100 UNIT/ML 1 ML 10 ML VIAL SQ SCH ×4 (07:30→23:18)
[2017-07-17] MEDS: methylPREDNISolone SOD SUCCI 40 MG/ML 1 ML VIAL IV SCH ×3 (07:32→20:33)
[2017-07-17] MEDS: PANTOPRAZOLE 40 MG TABLET PO SCH ×2 (07:33→15:43)
[2017-07-17] MEDS: ENOXAPARIN 40 MG/0.4 ML SYRINGE SQ SCH (07:33)
[2017-07-17] MEDS: NICOTINE 14MG/24HR PATCH TRANSDERM SCH (07:33)
[2017-07-17] MEDS: IPRATROPIUM-ALBUTEROL 3 ML NEB INHALATION SCH ×4 (08:11→20:05)
[2017-07-17] MEDS: SYMBICORT 80-4.5 MCG INHALER INHALATION SCH (08:11)
[2017-07-17] MEDS ORDERED: PROMETHAZ-COD 6.25-10 MG/5 ML 5 ML CUP PO PRN (09:40)
--- NOTE | 2017-07-17 09:44 | P.PN ---
Subjective Progress Note Date: 07/17/17 Principal diagnosis: Acute multifocal community acquired pneumonia Eulalia is a 52-year-old white female patient of Dr. Rohan Russell, who presented to the emergency department on 07/14/2017 at 1117 with complaints of a weeklong history of high fevers, body aches, chills, cough, and chest congestion. Patient reports being cold, clammy, sweaty. Her cough was initially productive of green sputum, it is now clear. Her fevers were as high as 104F at home. She denies any sick contacts, but at work she is exposed to a large number of people on the daily basis. Patient is a current smoker, smokes a quarter pack a day for 20 years. Her history of EtOH or illicit drugs. She has a mild obstructive sleep apnea, she did have a sleep study and was told her sleep apnea was borderline, and hence no CPAP therapy was prescribed, other medical history includes asthma, GERD/reflux, hyperlipidemia, osteoarthritis, chronic back pain, with history of back surgeries, multiple abdominal surgeries including gastric stapling for weight loss in 1982, cholecystectomy, hysterectomy, multiple laparotomies, hernia repair. Most recently patient had an abdominal hernia repair by Dr. Jones with mesh placement on 05/02/2017 at [facility]. Patient also has a history of MRSA infection in her abdominal wound, in her breast reduction incision, and MRSA pneumonia which required intensive care management and ventilator management back in [address] [facility]. Patient was then treated with infusions of vancomycin, which was later switched to Zyvox. Patient had a complete recovery following that hospitalization. She had seen a mining engineer in the past, who did tell her she has an underlying history of COPD. She is not on any home oxygen, she is on albuterol updrafts on as-needed basis, Advair and Pro-Air. Dr. Russell manages her COPD. While inpatient patient has been afebrile, she is on room air with O2 sat 95%. Chest x-ray from 07/14/2017 showed increased lung volumes consistent with COPD, but no acute cardiopulmonary process. CTA chest from 07/14/2017, the exam was limited to exclude pulmonary embolism. There is groundglass foci within the lungs with adenopathy, and the differential diagnostic consideration include granulomatous disease, infectious or noninfectious, sarcoidosis, granulomatosis with polyangiitis, alveolitis or opportunistic infection. Lab work initially showed no evidence of leukocytosis, WBC of 7.7, hemoglobin is 13.5, no signs of coagulopathy, renal profile and electrolyte profile was within normal limits. Troponin and cardiac enzymes were negative 1, proBNP was within normal limits at 101. Influenza screen was negative. Patient was started on a combination Rocephin and Zithromax which was later switched to Levaquin, IV steroids, and nebulized treatments. The patient is seen again today 07/16/2017 in follow-up on the regular medical floor. She is awake and alert in no acute distress. She is breathing a little better today as compared to yesterday but not quite back to her baseline. She has a loose nonproductive cough. She did have night sweats. Currently afebrile. Hemodynamically stable. Maintaining good O2 saturations in the 90s on room air. Preliminary sputum showing rare gram-positive cocci. Currently on Levaquin. On 07/17/2017 patient seen in follow-up on regular medical surgical floor. Still has severe coughing spells, night sweats, chest and back discomfort from coughing. Vital signs are stable. She is currently on room air with O2 sat at 93%. She remains afebrile, hemodynamics are stable. Lung sounds are positive for expiratory wheezing and scattered rhonchi. Patient was able to get up and take a shower, but states becomes very fatigued with light exertion. Not back to baseline yet. Sputum culture is pending. Patient remains on Levaquin, nebulized treatments, Symbicort, and IV Solu-Medrol. Objective - Vital Signs Vital signs: Vital Signs Temp 97.1 F L 07/17/17 07:00 Pulse 96 07/17/17 08:47 Resp 18 07/17/17 07:00 BP 119/66 07/17/17 07:00 Pulse Ox 93 L 07/17/17 07:00 Intake & Output 07/16/17 07/17/17 07/17/17 18:59 06:59 18:59 Intake Total 1000 240 Balance 1000 240 Intake: Oral 1000 240 Other: Voiding Method Toilet Toilet Toilet # Voids 2 2 - Exam GENERAL EXAM: Alert, pleasant, obese 52-year-old female comfortable in no apparent distress. HEAD: Normocephalic/atraumatic. EYES: Normal reaction of pupils, equal size. Conjunctiva pink, sclera white. NOSE: Clear with pink turbinates. THROAT: No erythema or exudates. NECK: No masses, no JVD, no thyroid enlargement, no adenopathy. CHEST: No chest wall deformity. Symmetrical expansion. LUNGS: Equal air entry with scattered rhonchi, and expiratory wheezing CVS: Regular rate and rhythm, normal S1 and S2, no gallops, no murmurs, no rubs ABDOMEN: Soft, nontender. No hepatosplenomegaly, normal bowel sounds, no guarding or rigidity. EXTREMITIES: No clubbing, no edema, no cyanosis, 2+ pulses and upper and lower extremities. MUSCULOSKELETAL: Muscle strength and tone normal. SPINE: No scoliosis or deformity SKIN: No rashes CENTRAL NERVOUS SYSTEM: Alert and oriented -3. No focal deficits, tone is normal in all 4 extremities. PSYCHIATRIC: Alert and oriented -3. Appropriate affect. Intact judgment and insight. - Labs CBC & Chem 7: 07/15/17 08:09 07/15/17 08:09 Labs: Abnormal Lab Results - Last 24 Hours (Table) 07/16/17 07/16/17 07/16/17 Range/Units 12:28 17:11 20:52 POC Glucose (mg/dL) 111 H 162 H 178 H (75-99) mg/dL 07/17/17 Range/Units 07:28 POC Glucose (mg/dL) 109 H (75-99) mg/dL Assessment and Plan Plan: Assessment: #1. Acute multifocal community-acquired pneumonia. Patient presented with febrile illness, dyspnea, cough with production of yellow sputum. CTA chest positive for groundglass opacities with adenopathy, consistent with multifocal pneumonia. #2. Acute exacerbation of COPD secondary to the above #3. Recent abdominal hernia repair with placement of mesh by Dr. Jones on 05/02, with complete recovery. Surgical incisions on the abdomen are well healed #4. History of multiple abdominal surgeries, including gastric stapling in 1982 , cholecystectomy, hysterectomy, laparotomies #5. History of MRSA pneumonia in 2014, requiring intubation and mechanical ventilation. #6. History of MRSA in the abdominal wound and postsurgical breast reduction wound in 2012 #7. Nicotine dependence, ongoing, patient carries 20 year smoking history, currently down to 5 cigarettes a day #8. Obstructive sleep apnea, patient was told he was borderline, and no CPAP therapy was prescribed #9. History of chronic back pain, with history of back surgeries, rotator cuff surgery #10. Obesity #11. GERD/reflux disease Plan: Patient reports very modest improvement, still remains dyspneic with exertion, still has severe coughing spells, night sweats. Sputum culture is still pending. Continue Levaquin, continue nebulized treatments, continue IV steroids and Symbicort. Activity as tolerated. Not ready for discharge. I performed a history & physical examination of the patient and discussed their management with my nurse practitioner, Brigette Tomlinson. I reviewed the nurse practitioner's note and agree with the documented findings and plan of care. Lung sounds are positive for expiratory wheezing and scattered rhonchi. The findings and the impression was discussed with the patient. I attest to the documentation by the nurse practitioner. Time with Patient: Less than 30
[2017-07-17] MEDS: ALPRAZolam 0.5 MG TAB PO PRN ×2 (11:15→20:36)
[2017-07-17 12:21] LABS: Glucose,Whole Blood 120 mg/dL (75-99)
[2017-07-17 17:02] LABS: Glucose,Whole Blood 117 mg/dL (75-99)
--- NOTE | 2017-07-17 19:57 | P.PN ---
Progress Note - Text Progress Note Date: 07/17/17 Presenting complaint: Short of breath cough Interval history: Patient presented with pneumonia with cough and sputum. Negative for influenza. Today-feels better compared to yesterday. Had some bouts of coughing. Wheezing still present. Tolerating a diet well. Had a bowel movement. Up to the bathroom. Minimal sputum production Review of systems: Was done for constitutional, cardiovascular, GI, pulmonary. relevant finding as above Current medications are reviewed and include: Nebulized bronchodilator, IV Solu-Medrol 40 mg every 8, Levaquin On examination: VITAL SIGNS: 97, 88, 18, 105/60, 95% room air GENERAL APPEARANCE: Sitting up in bed, more perky today. HEENT: Normal external appearance of nose and ear. Oral cavity normal EYES: Pupils equal. Conjunctiva normal. NECK: JVD not raised. Mass not palpable. RESPIRATORY: Respiratory effort increased, improved air entry, wheezing, with improved expiratory crackles. CARDIOVASCULAR: First and second sounds normal. No edema. ABDOMEN: Soft. Liver and spleen not palpable. No tenderness. No mass palpable. PSYCHIATRY: Alert and oriented x3. Mood and affect normal. Investigations: Negative sputum culture Influenza negative Assessment: -Multilobar pneumonia, suspected gram-negative organism, present on admission -Acute COPD exacerbation and a current smoker showing some improvement -Chronic nicotine dependence patient active cigarette smoker -Obesity BMI 37.1 -Chronic GERD -Hyperlipidemia -Primary osteoarthritis of multiple joints -Obstructive sleep apnea does not use CPAP - chronic cervical spine pain from herniated disc for which patient is on chronic pain medications Plan: Care was discussed with the patient. Continue with antibiotic, steroids. We will add Pulmicort in the nebulized form and by mouth Mucinex
[2017-07-17] MEDS: BUDESONIDE 1 MG/2 ML NEBU INHALATION SCH (20:05)
[2017-07-17] MEDS: LEVOFLOXACIN 500 MG TAB PO SCH (20:33)
[2017-07-17] MEDS: GABAPENTIN 100 MG CAP PO SCH (20:33)
[2017-07-17 20:41] LABS: Glucose,Whole Blood 134 mg/dL (75-99)
[2017-07-17 23:10] VITALS: TEMP 96.7
[2017-07-17] MEDS: guaiFENesin 600 MG TABLET.ER PO SCH (23:18)
[2017-07-18] MEDS: SYMBICORT 80-4.5 MCG INHALER INHALATION SCH (00:08)
[2017-07-18 04:50] LABS: Mycoplasma IgM Antibody 0.08 INDEX (<=0.90)
[2017-07-18] MEDS: HYDROmorphone 2 MG TAB PO PRN ×3 (06:15→13:29)
[2017-07-18] MEDS: NICOTINE 14MG/24HR PATCH TRANSDERM SCH (06:15)
[2017-07-18 07:11] LABS: Glucose,Whole Blood 103 mg/dL (75-99)
[2017-07-18 07:19] VITALS: BP 119/74; RESP 16
[2017-07-18] MEDS: BUDESONIDE 1 MG/2 ML NEBU INHALATION SCH (07:40)
[2017-07-18] MEDS: IPRATROPIUM-ALBUTEROL 3 ML NEB INHALATION SCH ×2 (07:40→10:52)
[2017-07-18] MEDS: INSULIN ASPART 100 UNIT/ML 1 ML 10 ML VIAL SQ SCH ×2 (08:01→12:34)
[2017-07-18] MEDS: guaiFENesin 600 MG TABLET.ER PO SCH (08:45)
[2017-07-18] MEDS: ENOXAPARIN 40 MG/0.4 ML SYRINGE SQ SCH (08:45)
[2017-07-18] MEDS: PANTOPRAZOLE 40 MG TABLET PO SCH (08:45)
[2017-07-18] MEDS: methylPREDNISolone SOD SUCCI 40 MG/ML 1 ML VIAL IV SCH (08:45)
[2017-07-18] MEDS: ALPRAZolam 0.5 MG TAB PO PRN (09:24)
[2017-07-18 11:04] VITALS: PULSE 92
[2017-07-18 12:11] LABS: Glucose,Whole Blood 97 mg/dL (75-99)
--- NOTE | 2017-07-18 13:26 | P.PN ---
Subjective Progress Note Date: 07/18/17 Principal diagnosis: Acute multifocal community acquired pneumonia Eulalia is a 52-year-old white female patient of Dr. Rohan Russell, who presented to the emergency department on 07/14/2017 at 1117 with complaints of a weeklong history of high fevers, body aches, chills, cough, and chest congestion. Patient reports being cold, clammy, sweaty. Her cough was initially productive of green sputum, it is now clear. Her fevers were as high as 104F at home. She denies any sick contacts, but at work she is exposed to a large number of people on the daily basis. Patient is a current smoker, smokes a quarter pack a day for 20 years. Her history of EtOH or illicit drugs. She has a mild obstructive sleep apnea, she did have a sleep study and was told her sleep apnea was borderline, and hence no CPAP therapy was prescribed, other medical history includes asthma, GERD/reflux, hyperlipidemia, osteoarthritis, chronic back pain, with history of back surgeries, multiple abdominal surgeries including gastric stapling for weight loss in 1982, cholecystectomy, hysterectomy, multiple laparotomies, hernia repair. Most recently patient had an abdominal hernia repair by Dr. Jones with mesh placement on 05/02/2017 at [facility]. Patient also has a history of MRSA infection in her abdominal wound, in her breast reduction incision, and MRSA pneumonia which required intensive care management and ventilator management back in 2014 at [facility]. Patient was then treated with infusions of vancomycin, which was later switched to Zyvox. Patient had a complete recovery following that hospitalization. She had seen a physical education teacher in the past, who did tell her she has an underlying history of COPD. She is not on any home oxygen, she is on albuterol updrafts on as-needed basis, Advair and Pro-Air. Dr. Russell manages her COPD. While inpatient patient has been afebrile, she is on room air with O2 sat 95%. Chest x-ray from 07/14/2017 showed increased lung volumes consistent with COPD, but no acute cardiopulmonary process. CTA chest from 07/14/2017, the exam was limited to exclude pulmonary embolism. There is groundglass foci within the lungs with adenopathy, and the differential diagnostic consideration include granulomatous disease, infectious or noninfectious, sarcoidosis, granulomatosis with polyangiitis, alveolitis or opportunistic infection. Lab work initially showed no evidence of leukocytosis, WBC of 7.7, hemoglobin is 13.5, no signs of coagulopathy, renal profile and electrolyte profile was within normal limits. Troponin and cardiac enzymes were negative 1, proBNP was within normal limits at 101. Influenza screen was negative. Patient was started on a combination Rocephin and Zithromax which was later switched to Levaquin, IV steroids, and nebulized treatments. The patient is seen again today 07/16/2017 in follow-up on the regular medical floor. She is awake and alert in no acute distress. She is breathing a little better today as compared to yesterday but not quite back to her baseline. She has a loose nonproductive cough. She did have night sweats. Currently afebrile. Hemodynamically stable. Maintaining good O2 saturations in the 90s on room air. Preliminary sputum showing rare gram-positive cocci. Currently on Levaquin. On 07/17/2017 patient seen in follow-up on regular medical surgical floor. Still has severe coughing spells, night sweats, chest and back discomfort from coughing. Vital signs are stable. She is currently on room air with O2 sat at 93%. She remains afebrile, hemodynamics are stable. Lung sounds are positive for expiratory wheezing and scattered rhonchi. Patient was able to get up and take a shower, but states becomes very fatigued with light exertion. Not back to baseline yet. Sputum culture is pending. Patient remains on Levaquin, nebulized treatments, Symbicort, and IV Solu-Medrol. On 07/18/2017 patient reports significant improvement in terms of her dyspnea, night sweats, and coughing. Her vital signs are stable, she remains afebrile. No growth on the sputum culture. She is on room air with O2 sat 94%. No significant events overnight. She has been able to get up and take a shower, and ambulate around the room. Tolerated it well. From pulmonary standpoint she is stable for discharge home today. Objective - Vital Signs Vital signs: Vital Signs Temp 96.7 F L 07/18/17 07:00 Pulse 92 07/18/17 11:02 Resp 16 07/18/17 07:00 BP 119/74 07/18/17 07:00 Pulse Ox 94 L 07/18/17 07:00 Intake & Output 07/17/17 07/18/17 07/18/17 18:59 06:59 18:59 Intake Total 830 Balance 830 Intake: Oral 830 Other: Voiding Method Toilet Toilet # Voids 1 2 - Exam GENERAL EXAM: Alert, pleasant, obese 52-year-old female comfortable in no apparent distress. HEAD: Normocephalic/atraumatic. EYES: Normal reaction of pupils, equal size. Conjunctiva pink, sclera white. NOSE: Clear with pink turbinates. THROAT: No erythema or exudates. NECK: No masses, no JVD, no thyroid enlargement, no adenopathy. CHEST: No chest wall deformity. Symmetrical expansion. LUNGS: Equal air entry with clear lung sounds, no rhonchi no wheezes noted CVS: Regular rate and rhythm, normal S1 and S2, no gallops, no murmurs, no rubs ABDOMEN: Soft, nontender. No hepatosplenomegaly, normal bowel sounds, no guarding or rigidity. EXTREMITIES: No clubbing, no edema, no cyanosis, 2+ pulses and upper and lower extremities. MUSCULOSKELETAL: Muscle strength and tone normal. SPINE: No scoliosis or deformity SKIN: No rashes CENTRAL NERVOUS SYSTEM: Alert and oriented -3. No focal deficits, tone is normal in all 4 extremities. PSYCHIATRIC: Alert and oriented -3. Appropriate affect. Intact judgment and insight. - Labs CBC & Chem 7: 07/15/17 08:09 07/15/17 08:09 Labs: Abnormal Lab Results - Last 24 Hours (Table) 07/17/17 07/17/17 07/18/17 Range/Units 16:57 20:39 06:56 POC Glucose (mg/dL) 117 H 134 H 103 H (75-99) mg/dL Microbiology - Last 24 Hours (Table) 07/14/17 20:28 Gram Stain - Final Sputum Sputum Culture - Final Assessment and Plan Plan: Assessment: #1. Acute multifocal community-acquired pneumonia. Patient presented with febrile illness, dyspnea, cough with production of yellow sputum. CTA chest positive for groundglass opacities with adenopathy, consistent with multifocal pneumonia. #2. Acute exacerbation of COPD secondary to the above #3. Recent abdominal hernia repair with placement of mesh by Dr. Jones on 05/02, with complete recovery. Surgical incisions on the abdomen are well healed #4. History of multiple abdominal surgeries, including gastric stapling in 1982 , cholecystectomy, hysterectomy, laparotomies #5. History of MRSA pneumonia in 2014, requiring intubation and mechanical ventilation. #6. History of MRSA in the abdominal wound and postsurgical breast reduction wound in 2012 #7. Nicotine dependence, ongoing, patient carries 20 year smoking history, currently down to 5 cigarettes a day #8. Obstructive sleep apnea, patient was told he was borderline, and no CPAP therapy was prescribed #9. History of chronic back pain, with history of back surgeries, rotator cuff surgery #10. Obesity #11. GERD/reflux disease Plan: Patient is improving, vital signs are stable, she is on room air with O2 sat 94% . Afebrile. Works significant improvement in terms of dyspnea, and activity tolerance. From pulmonary standpoint she stable for discharge home today. She will need to finish 5 more days of oral Levaquin, prednisone taper. She is to continue on her nebulized treatments and inhalers. Smoking cessation was again strongly recommended. I performed a history & physical examination of the patient and discussed their management with my nurse practitioner, Brigette Tomlinson. I reviewed the nurse practitioner's note and agree with the documented findings and plan of care. Lung sounds are clear. The findings and the impression was discussed with the patient. I attest to the documentation by the nurse practitioner. Time with Patient: Less than 30
--- NOTE | 2017-07-19 19:29 | P.DS ---
Providers Date of admission: 07/14/17 17:04 Expected date of discharge: 07/18/17 Attending physician: Lee Martin Consults: 07/14/17 17:05 Consult Physician Routine Consulting Provider: Adam Matt Consult Reason/Comments: MANUELITO Do you want consulting provider notified?: Yes Primary care physician: [facility] Course: Final diagnosis: -Multilobar pneumonia, suspected gram-negative organism, present on admission -Acute COPD exacerbation and a current smoker much improved -Chronic nicotine dependence patient active cigarette smoker -Obesity BMI 37.1 -Chronic GERD -Hyperlipidemia -Primary osteoarthritis of multiple joints -Obstructive sleep apnea does not use CPAP - chronic cervical spine pain from herniated disc for which patient is on chronic pain medications Hospital course: This is a patient was smoker presented with bouts of coughing wheezing short of breath. His sputum production. Responded well to antibiotics and neb address bronchitis and steroids. By the time of discharge up and about symptoms are greatly improved. Patient was counseled against smoking. Chest CTA-showed some infiltrates no PE. Discussion discharge planning more than 35 minutes On examination: Lungs improved air entry no wheezing Cardiovascular first seconds are normal Disposition: Home Patient Condition at Discharge: Fair Plan - Discharge Summary Discharge Rx Participant: Yes New Discharge Prescriptions: New Levofloxacin [Levaquin] 500 mg PO DAILY 5 Days #5 tab predniSONE 10 mg PO DAILY 12 Days #24 tab Ipratropium Waterman [Atrovent Hfa] 2 puff INHALATION TID #1 inhaler Ipratropium-Albuterol Nebulize [Duoneb 0.5 mg-3 mg/3 ml Soln] 3 ml INHALATION RT-QID ampul.neb Ipratropium-Albuterol Nebulize [Duoneb 0.5 mg-3 mg/3 ml Soln] 3 ml INHALATION RT-QID PRN ampul.neb PRN Reason: Shortness Of Breath Or Wheezing Nicotine 14Mg/24Hr Patch [Habitrol] 1 patch TRANSDERM DAILY #30 patch Continue Omeprazole [PriLOSEC] 20 mg PO DAILY ALPRAZolam [Xanax] 0.5 mg PO BID PRN PRN Reason: Anxiety oxyCODONE-APAP 10-325MG [Percocet 10-325 mg] 1 tab PO Q6H PRN PRN Reason: Pain Fluticasone/Salmeterol [Advair 250-50 Diskus] 1 puff PO RT-BID Gabapentin [Neurontin] 100 mg PO HS Eszopiclone [Lunesta] 3 mg PO HS PRN PRN Reason: Insomnia Albuterol Nebulized [Ventolin Nebulized] 2.5 mg INHALATION RT-QID PRN PRN Reason: Shortness Of Breath Albuterol Inhaler [Ventolin Hfa Inhaler] 1 - 2 puff INHALATION RT-QID PRN PRN Reason: Shortness Of Breath Discharge Medication List ALPRAZolam [Xanax] 0.5 mg PO BID PRN 06/11/15 [History] Omeprazole [PriLOSEC] 20 mg PO DAILY 06/11/15 [History] oxyCODONE-APAP 10-325MG [Percocet 10-325 mg] 1 tab PO Q6H PRN 06/11/15 [History] Fluticasone/Salmeterol [Advair 250-50 Diskus] 1 puff PO RT-BID 04/18/17 [History ] Albuterol Inhaler [Ventolin Hfa Inhaler] 1 - 2 puff INHALATION RT-QID PRN [History] Albuterol Nebulized [Ventolin Nebulized] 2.5 mg INHALATION RT-QID PRN 07/14/17 [ History] Eszopiclone [Lunesta] 3 mg PO HS PRN 07/14/17 [History] Gabapentin [Neurontin] 100 mg PO HS 07/14/17 [History] Ipratropium Waterman [Atrovent Hfa] 2 puff INHALATION TID #1 inhaler 07/18/17 [Rx ] Ipratropium-Albuterol Nebulize [Duoneb 0.5 mg-3 mg/3 ml Soln] 3 ml INHALATION RT -QID ampul.neb 07/18/17 [Rx] Ipratropium-Albuterol Nebulize [Duoneb 0.5 mg-3 mg/3 ml Soln] 3 ml INHALATION RT -QID PRN ampul.neb 07/18/17 [Rx] Levofloxacin [Levaquin] 500 mg PO DAILY 5 Days #5 tab 07/18/17 [Rx] Nicotine 14Mg/24Hr Patch [Habitrol] 1 patch TRANSDERM DAILY #30 patch 07/18/17 [ Rx] predniSONE 10 mg PO DAILY 12 Days #24 tab 07/18/17 [Rx] Follow up Appointment(s)/Referral(s): Adam Matt MD [STAFF PHYSICIAN] - 1 Week Rohan Russell DO [Primary Care Provider] - 3 Days (pt to make appt) Patient Instructions/Handouts: How to Stop Smoking (DC), Acute Bronchitis (GEN) Activity/Diet/Wound Care/Special Instructions: NO smoking, cessation information provided and encouraged. Regular diet. Discharge Disposition: HOME SELF-CARE
== END 2017-07-18 14:38 | disposition home or self-care (01) | DRG 178 ==
LOC: EC 11:17 → 4MS4W 17:04 → OBSVTOIN 17:04 → 4MS4W 07-15 21:37
PROVIDERS: ADMIT Hospitalist; ATTEND Hospitalist
DX: J15.6 Pneumonia due to other Gram-negative bacteria (principal); J44.0 Chronic obstructive pulmonary disease with (acute) lower respiratory infection; J84.9 Interstitial pulmonary disease, unspecified; J44.1 Chronic obstructive pulmonary disease with (acute) exacerbation; E66.9 Obesity, unspecified; E78.5 Hyperlipidemia, unspecified; F17.210 Nicotine dependence, cigarettes, uncomplicated; F41.9 Anxiety disorder, unspecified; G47.33 Obstructive sleep apnea (adult) (pediatric); K21.9 Gastro-esophageal reflux disease without esophagitis; M15.9 Polyosteoarthritis, unspecified; Z80.0 Family history of malignant neoplasm of digestive organs; Z86.14 Personal history of Methicillin resistant Staphylococcus aureus infection; Z87.01 Personal history of pneumonia (recurrent); Z87.11 Personal history of peptic ulcer disease; Z90.710 Acquired absence of both cervix and uterus; Z71.6 Tobacco abuse counseling; G89.29 Other chronic pain
CPT/HCPCS: 36415; 71046; 71275; 80048; 80053; 82550; 82553; 83036; 83880; 84484; 85025; 85027; 85610; 85730; 86738; 87070; 87205; 87449; 87502; 93005; 94640; 96374; 96375; 99285

== ENCOUNTER → 2018-04-14 | Outpatient (CLI) | payer BC ==
--- NOTE | 2018-04-14 15:41 | US ---
EXAMINATION TYPE: US bladder DATE OF EXAM: 04/14/2018 COMPARISON: NONE CLINICAL HISTORY: R35.0 Frequency of micturition. Many abdominal surgeries, extensive scarring. EXAM MEASUREMENTS: Post Void Residual Volume: completely Color Doppler performed to assess ureteral jets. Bilateral Jets seen: Yes Normal Post Void Residual (less than 50ml): Yes, completely empty. IMPRESSION: 1. Visualized urinary bladder is unremarkable.
--- NOTE | 2018-04-14 15:45 | US ---
EXAMINATION TYPE: US thyroid st tissue head/neck DATE OF EXAM: 04/14/2018 COMPARISON: US CLINICAL HISTORY: E04.1. nodule GLAND SIZE: Right Lobe: 3.9 x 1.5 x 1.2 cm Overall Parenchyma: homogenous Left Lobe: 4.5 x 1.5 x 1.3 cm Overall Parenchyma: homogeneous Isthmus Thickness: 0.2 cm NODULES RIGHT: # of nodules measured on right: 2 1. 0.2 X 0.3 x 0.2 cm hypoechoic cystic nodule at the upper pole with well-defined margins; . This nodule is wider than tall and shows no intranodular vascularity. Prior size: 0.2 x 0.2 x 0.3 cm 2. 0.4 X 0.3 x 0.4 cm hypoechoic cystic nodule at the lower pole with well-defined margins; . This nodule is wider than tall and shows no intranodular vascularity. Prior size: not previously measured LEFT: # of nodules measured on left: 1. 0.2 X 0.2 x 0.3 cm hypoechoic cystic nodule at the upper pole with well-defined margins; . This nodule is wider than tall and shows no intranodular vascularity. Prior size: 0.3 x 0.2 x 0.3 cm ISTHMUS: # of nodules measured in the isthmus: 0 Bilateral neck scanned, no evidence of lymphadenopathy. Nodules as described. IMPRESSION: 1. Subcentimeter nodules present bilaterally
--- NOTE | 2018-04-18 08:49 | MM ---
Reason for exam: screening (asymptomatic). Last mammogram was performed 1 year and 9 months ago. History: Patient is postmenopausal. Family history of breast cancer in maternal aunt at age 53 and breast cancer in maternal cousin. Reductions of both breasts, March 2012. Benign right mammotome panel of the right breast, May 25, 2010. Benign excisional biopsy of the right breast, July 24, 2007. Benign US right core biopsy of the right breast, July 14, 2007. Took hormonal contraceptives for 5 years beginning at age 16. Physical Findings: A clinical breast exam by your physician is recommended on an annual basis and results should be correlated with mammographic findings. MG 3D Screening Mammo W/Cad Bilateral CC and MLO view(s) were taken. Prior study comparison: July 16, 2016, bilateral MG 3d screening mammo w/cad. April 21, 2015, bilateral MG 3d screening mammo w/cad. There are scattered fibroglandular densities. Benign appearing bilateral calcifications. Right biopsy marker noted. ASSESSMENT: Benign, BI-RAD 2 RECOMMENDATION: Routine screening mammogram of both breasts in 1 year.
== END | disposition home or self-care (01) ==
LOC: RADMAMWWP 14:35
PROVIDERS: ATTEND Family Medicine
DX: Z12.31 Encounter for screening mammogram for malignant neoplasm of breast (principal); E04.1 Nontoxic single thyroid nodule; R35.0 Frequency of micturition
CPT/HCPCS: 76536; 76857; 77063; 77067

== ENCOUNTER → 2018-04-24 | Outpatient (CLI) | payer BC ==
--- NOTE | 2018-04-24 11:14 | CT ---
EXAMINATION TYPE: CT abdomen pelvis wo con DATE OF EXAM: 04/24/2018 COMPARISON: 04/18/2017 HISTORY: LUQ pain post eating CT DLP: 992 mGycm Automated exposure control for dose reduction was used. TECHNIQUE: Helical acquisition of images was performed from the lung bases through the pelvis. FINDINGS: LUNG BASES: There is a 6 mm nodule within the right lower lobe stable from the prior CT of 07/14/2017. Subpleural 2 mm nodule in the right lung base. Also stable. LIVER/GB: Liver is reduced in attenuation compatible with headache steatosis. Liver does appear to be enlarged measuring 22 cm. PANCREAS: No significant abnormality is seen. SPLEEN: Punctate granuloma noted. ADRENALS: No significant abnormality is seen. KIDNEYS: No significant abnormality is seen. ADENOPATHY: None visualized. OSSEOUS STRUCTURES: Hypertrophic and degenerative change of the vertebral column. BOWEL: Bowel gas pattern nonspecific without evidence of obstruction. Appendix normal. Evidence of p revious gastric surgery noted. Stomach is decompressed and limited in assessment. OTHER: Atherosclerotic change of the aorta. No evidence of aneurysm. Small fat-containing anterior ab dominal wall hernia. IMPRESSION: 1. Postsurgical changes with no definite acute process. 2. Cardiomegaly with findings suggestive of hepatic steatosis. 3. Stable right lower lobe pulmonary nodules unchanged from 07/14/2017. Recommend additional 6 month f ollow-up CT chest to confirm stability.
[2018-04-24 11:28] LABS: Basophils # (A) 0.1 k/uL (0-0.2); Basophils % (A) 1 %; Eosinophils # (A) 0.2 k/uL (0-0.7); Eosinophils % (A) 3 %; HCT 42.2 % (34.0-46.0); HGB 13.5 gm/dL (11.4-16.0); Lymphocytes # (A) 1.9 k/uL (1.0-4.8); Lymphocytes % (A) 27 %; MCH 27.8 pg (25.0-35.0); MCHC 31.9 g/dL (31.0-37.0); MCV 87.1 fL (80.0-100.0); Mean Platelet Volume 7.1; Monocytes # (A) 0.4 k/uL (0-1.0); Monocytes % (A) 6 %; Neutrophils # (A) 4.4 k/uL (1.3-7.7); Neutrophils % (A) 62 %; Platelet Count 359 k/uL (150-450); RBC 4.85 m/uL (3.80-5.40); RDW 14.5 % (11.5-15.5); WBC 7.1 k/uL (3.8-10.6)
[2018-04-24 11:29] LABS: Albumin 4.1 g/dL (3.5-5.0); Calcium 9.7 mg/dL (8.4-10.2); Potassium 4.6 mmol/L (3.5-5.1); Total Bilirubin 0.5 mg/dL (0.2-1.3); Total Protein 7.3 g/dL (6.3-8.2)
[2018-04-24 11:46] LABS: T4, Free (Free Thyroxine) 0.94 ng/dL (0.78-2.19)
[2018-04-24 11:47] LABS: Appearance,Urine Clear (Clear); Bilirubin,Urine Negative (Negative); Blood,Urine Negative (Negative); Color,Urine Light Yellow; Glucose,Urine (UA) Negative (Negative); Ketones,Urine Negative (Negative); Leukocyte Esterase,Urine Negative (Negative); Nitrite,Urine Negative (Negative); PH, Urine 6.5 (5.0-8.0); Protein,Urine Negative (Negative); Specific Gravity,Urine 1.004 (1.001-1.035); Urobilinogen,Urine <2.0 mg/dL (<2.0)
[2018-04-24 19:58] LABS: Hemoglobin A1C 5.9 % (4.0-6.0)
== END ==
LOC: RADCTMAIN 09:16
PROVIDERS: ATTEND Family Medicine
DX: R10.12 Left upper quadrant pain (principal)
CPT/HCPCS: 36415; 74176; 80053; 81003; 82306; 83036; 83690; 84439; 84443; 85025

== ENCOUNTER → 2018-10-27 | Outpatient (CLI) | payer BC ==
--- NOTE | 2018-10-27 13:50 | CT ---
EXAMINATION TYPE: CT chest w con DATE OF EXAM: 10/27/2018 COMPARISON: CT chest 07/14/2017 HISTORY: Patient had abnormal findings of lung findings, has been scanned prior with this result. CT DLP: 742.2 mGycm Automated exposure control for dose reduction was used. CONTRAST: CT scan of the chest is performed with IV Contrast, patient injected with 100 mL of Isovue M300. FINDINGS: LUNGS: The lungs are improved with the areas of groundglass opacity seen on prior CT no longer eviden t, there is paraseptal emphysematous change in the right upper lobe as on prior exam, there is no con cerning parenchymal mass or nodule identified. Calcified granuloma again noted in the right lower lo be. There is no pleural effusion or pneumothorax seen. The tracheobronchial tree is patent. MEDIASTINUM: There are no greater than 1 cm hilar or mediastinal lymph nodes. Retrocaval pretracheal node is measuring slightly less than 10 mm and is decreased in size as compared to prior exam. No pe ricardial effusion is seen. AORTA: No additional significant abnormality is seen. OTHER: Postop changes status post gastric sleeve and post cholecystectomy noted. Liver shows low att enuation likely due to hepatic steatosis, suspect hepatomegaly. Small duodenal diverticulum is suspec tiffani. IMPRESSION: Interval improvement in previously identified abnormalities as described
== END ==
LOC: RADCTMAIN 11:20
PROVIDERS: ATTEND Family Medicine
DX: J84.10 Pulmonary fibrosis, unspecified (principal); J43.9 Emphysema, unspecified; R91.8 Other nonspecific abnormal finding of lung field
CPT/HCPCS: 71260; Q9967

== ENCOUNTER → 2019-05-11 | Outpatient (CLI) | payer BC ==
--- NOTE | 2019-05-11 09:20 | US ---
EXAMINATION TYPE: US thyroid st tissue head/neck DATE OF EXAM: 05/11/2019 COMPARISON: US CLINICAL HISTORY: E04.2 Multinodular Goiter. F/U GLAND SIZE: Right Lobe: 4.1 x 1.2 x 1.6 cm Overall Parenchyma: homogenous Left Lobe: 4.1 x 1.4 x 1.2 cm Overall Parenchyma: homogeneous Isthmus Thickness: 0.3 cm NODULES RIGHT: # of nodules measured on right: 2 1. 0.4 X 0.3 x 0.5 cm hypoechoic solid nodule at the lower pole with well-defined margins; This no dule is wider than tall and shows no intranodular vascularity. Prior size: 0.4 x 0.3 x 0.4 cm 2. 0.7 X 0.4 x 0.5 cm hypoechoic mixed nodule at the lower pole with well-defined margins; This nod ule is wider than tall and shows intranodular vascularity. Prior size: Not visualized on prior LEFT: # of nodules measured on left: 1 1. 0.3 X 0.2 x 0.3 cm hypoechoic solid nodule at the mid pole with well-defined margins; This nodu le is wider than tall and shows intranodular vascularity. Prior size: 0.3 x 0.2 x 0.3 cm Bilateral neck scanned, no evidence of lymphadenopathy. Stable nodules bilaterally with new nodule ri ght lower lobe. IMPRESSION: 1. Small bilateral subcentimeter thyroid nodules 2. A new subcentimeter nodule is present on the right lobe thyroid
== END | disposition home or self-care (01) ==
LOC: RADUSWWP 08:51
PROVIDERS: ATTEND Family Medicine
DX: E04.2 Nontoxic multinodular goiter (principal)
CPT/HCPCS: 76536

== ENCOUNTER → 2019-06-15 | Outpatient (CLI) | payer BC ==
--- NOTE | 2019-06-15 09:07 | MM ---
Reason for exam: additional evaluation requested from prior study. Last mammogram was performed 1 year and 2 months ago. History: Patient is postmenopausal. Family history of breast cancer in maternal aunt at age 53 and breast cancer in maternal cousin. Reductions of both breasts, March 2012. Benign right mammotome panel of the right breast, May 25, 2010. Benign excisional biopsy of the right breast, July 24, 2007. Benign US right core biopsy of the right breast, July 14, 2007. Took hormonal contraceptives for 5 years beginning at age 16. Physical Findings: Nurse did not find any significant physical abnormalities on exam. MG 3D Diag Mammo W/Cad DEAN Bilateral CC and MLO view(s) were taken. XCCL view(s) were taken of the right breast. CV view(s) were taken of the left breast. Prior study comparison: April 14, 2018, bilateral MG 3d screening mammo w/cad. July 16, 2016, bilateral MG 3d screening mammo w/cad. There are scattered fibroglandular densities. There are benign appearing round calcifications bilaterally. Previous mammotome biopsy in the right and left breast. There is no discrete abnormality. These results were verbally communicated with the patient and result sheet given to the patient on 06/15/19. ASSESSMENT: Benign, BI-RAD 2 RECOMMENDATION: Routine screening mammogram of both breasts in 1 year. Manage on a clinical basis with regard to left pain.
--- NOTE | 2019-06-15 09:22 | FL ---
EXAMINATION TYPE: FL barium swallow DATE OF EXAM: 06/15/2019 CLINICAL HISTORY: GERD, history of gastric stapling in 1982. TECHNIQUE: A double contrast esophagram is performed utilizing thin and thick liquid barium. A tota l of 22 seconds of fluoroscopic time was utilized during procedure. 69 spot images are saved. COMPARISON: Chest CT October 27, 2018 and prior esophagram January 01, 2010 FINDINGS: The esophagus shows satisfactory motility and emptying into the stomach. There is a small t o moderate size hiatal hernia identified throughout the study. No intraluminal mass or stricture. No diverticulum. No significant gastroesophageal reflux was seen during real time performance of this st udy. Surgical changes consistent with gastric sleeve procedure noted below diaphragm. IMPRESSION: Small to moderate size hiatal hernia.
== END | disposition home or self-care (01) ==
LOC: RADMAMWWP 07:37
PROVIDERS: ATTEND Family Medicine
DX: N63.10 Unspecified lump in the right breast, unspecified quadrant (principal); K44.9 Diaphragmatic hernia without obstruction or gangrene; K21.9 Gastro-esophageal reflux disease without esophagitis
CPT/HCPCS: 74220; 77062; 77066

== ENCOUNTER → 2019-08-03 | Outpatient (CLI) | payer BC ==
--- NOTE | 2019-08-03 08:31 | US ---
EXAMINATION TYPE: US thyroid st tissue head/neck DATE OF EXAM: 08/03/2019 COMPARISON: US 05/11/19, 02/04/17 CLINICAL HISTORY: E04.1 Nontoxic single thyroid nodule. GLAND SIZE: Right Lobe: 3.5 x 1.1 x 1.1 cm Overall Parenchyma: homogenous Left Lobe: 3.8 x1.5 x 1.3 cm Overall Parenchyma: homogeneous Isthmus Thickness: 0.3 cm NODULES RIGHT: # of nodules measured on right: 2 1. 0.5 X 0.3 x 0.3 cm hypoechoic cystic nodule at the lower pole with well-defined margins; . This nodule is taller than wide and shows no intranodular vascularity. Prior size: 0.4 x 0.3 x 0.5 cm 2. 0.6 X 0.5 x 0.4 cm isoechoic solid nodule at the lower pole with poorly defined margins; . This nodule is wider than tall and shows no intranodular vascularity. Prior size: 0.7 x 0.4 x 0.5 cm LEFT: # of nodules measured on left: 1 1. 0.4 X 0.3 x 0.3 cm hypoechoic solid nodule at the mid pole with well-defined margins; . This n odule is taller than wide and shows intranodular vascularity. Prior size: 0.3 x 0.2 x 0.3 cm ISTHMUS: # of nodules measured in the isthmus: 0 Bilateral neck scanned, no evidence of lymphadenopathy. IMPRESSION: Similar size of the bilateral subcentimeter thyroid nodules. Multinodular goiter.
== END | disposition home or self-care (01) ==
LOC: RADUSWWP 07:41
PROVIDERS: ATTEND Family Medicine
DX: E04.2 Nontoxic multinodular goiter (principal)
CPT/HCPCS: 76536

== ENCOUNTER → 2019-08-15 | Outpatient (CLI) | payer BC ==
--- NOTE | 2019-08-15 09:35 | US ---
EXAMINATION TYPE: US abdomen comp/pelvis limited DATE OF EXAM: 08/15/2019 COMPARISON: NONE CLINICAL HISTORY: R10.30 Lower abd pain. pelvic pressure for months, gross hematuria for months, tota l hysterectomy and cholecystectomy, h/o enlarged liver, patient states multiple abdominal surgeries EXAM MEASUREMENTS: Liver Length: 19.9 cm Gallbladder Wall: Surgically absent CBD: 0.8 cm Spleen: 12.9 cm Right Kidney: 8.2 x 4.3 x 4.0 cm Left Kidney: 10.0 x 4.4 x 5.6 cm Limited exam, difficult to penetrate and overlying bowel gas obscures organs Pancreas: not seen due to bowel gas Liver: very limited imaging, enlarged. There is increased echogenicity of the hepatic parenchyma wit h diminished visualization of the portal triads most commonly relating to hepatic steatosis and limit ing evaluation for underlying hepatic masses. Gallbladder: Surgically absent CBD: wnl post cholecystectomy Spleen: upper limits if normal for size Right Kidney: limited evaluation due to overlying bowel gas. No gross hydronephrosis. Left Kidney: wnl Upper IVC: wnl Abd Aorta: limited views appear wnl Bladder: patient prepped but bladder was not filling, post hysterectomy pelvis and bilateral adnexal scan produced no obvious abnormality. IMPRESSION: 1. Limited exam secondary to overlying bowel gas. Nonvisualization of the pancreas and markedly limit ed visualization of the right kidney. No gross evidence of hydronephrosis of either kidney. 2. Sonographic findings most commonly related to hepatic steatosis. Correlate with liver function trice ts. 3. Urinary bladder is not well visualized as it is not distended. Repeat ultrasound could be performe d when the urinary bladder is distended.
== END | disposition home or self-care (01) ==
LOC: RADUSWWP 08:47
PROVIDERS: ATTEND Family Medicine
DX: R10.30 Lower abdominal pain, unspecified (principal)
CPT/HCPCS: 76700; 76857

== ENCOUNTER → 2019-10-02 | Outpatient (CLI) | payer BC | END | disposition home or self-care (01) | LOC: LABWHC1 09:39 | PROVIDERS: ATTEND Internal Medicine Gastroenterology | DX: U07.1 COVID-19 (principal) | CPT/HCPCS: 87635 ==

== ENCOUNTER 2019-10-05 07:55 | Day surgery (SDC) | payer BC ==
[2019-10-04 10:28] VITALS: BMI 41.1
[2019-10-05] MEDS ORDERED: LACTATED RINGERS 1,000 ML IV SCH (08:04)
[2019-10-05] MEDS ORDERED: LIDOCAINE 1% (10MG/ML) FOR IV START INTRADERMA PRN (08:04)
[2019-10-05 08:21] VITALS: RESP 18; TEMP 97.4
[2019-10-05] MEDS ORDERED: PROPOFOL 10 MG/ML 20 ML VIAL IV ONE (08:27)
[2019-10-05] MEDS ORDERED: LIDOCAINE 1% INJ 10MG/ML (20 ML MDV) ONE (08:27)
--- NOTE | 2019-10-05 09:15 | P.PCN ---
Date of Procedure: 10/05/19 Procedure(s) Performed: Brief history: Patient is a pleasant 54-year-old white female scheduled for an elective upper endoscopy as well as colonoscopy as a part of evaluation of chronic diarrhea for the last 6 months duration. She has not was anywhere from this 70. Pulse 60. Occasional fecal incontinence. Recent serologies for celiac disease was positive. She senses scheduled for an upper endoscopy as well as colonoscopy to evaluate further. Procedure performed: Esophagogastroduodenoscopy with biopsy Colonoscopy with biopsy Preoperative diagnosis: Positive serology for celiac disease and chronic diarrhea of 6 months duration Anesthesia: MAC Procedure: After informed consent was obtained from the patient was brought into the endoscopy unit and IV sedation was administered by anesthesia under continuous monitoring. Initially upper endoscopy was done. The Olympus GF 160 video end oscope was inserted inserted into the mouth and esophagus intubated without any difficulty and was gradually advanced into the stomach and duodenum and carefully examined. The bulb and second part of the duodenum appeared normal. Antral biopsies were done from the duodenum to rule out celiac disease. The scope was then withdrawn into the stomach adequately insufflated with air and upon careful examination the antrum had mild gastritis and biopsies were done from this area. There was evidence of previous gastric sleeve surgery noted. and mucosa of body, cardia and fundus appeared normal. The scope was then withdrawn into the esophagus. The GE junction was located at 40 cm to the incisors. It appeared regular with no erythema erosions or ulcerations. Rest of the esophagus appeared normal. Patient tolerated the procedure well. At this time the patient continued to remain sedation. Initial digital rectal examination was normal. Olympus CF 160 video colonoscope was then inserted into the rectum and gradually advanced to the cecum with severe difficulty . Careful examination was performed as the scope was gradually being withdrawn. The prep was excellent. The cecum, ascending colon, transverse colon, descending colon, sigmoid colon and rectum appeared normal. Biopsies were done from ascending and descending colon to rule out microscopic/collagenous colitis. Retroflexion was performed in the rectum and no lesions were noted. Patient tolerated the procedure well. Impression: 1. Upper endoscopy revealed evidence of previous gastric sleeve surgery and gastritis/duodenitis 2. Colonoscopy revealed normal-appearing colon from rectum to cecum with no colitis or colorectal neoplasia. Recommendations: Findings of this examination were discussed with the patient as well as[ her family. She was advised to follow with the biopsy results. She'll be seen in office in 2 weeks.
[2019-10-05 09:35] VITALS: BP 130/83; PULSE 68
== END 2019-10-05 10:12 | disposition home or self-care (01) ==
LOC: ORWHC2ENDO 07:55
PROVIDERS: ATTEND Internal Medicine Gastroenterology
DX: K29.50 Unspecified chronic gastritis without bleeding (principal); K52.9 Noninfective gastroenteritis and colitis, unspecified; K90.0 Celiac disease; K21.9 Gastro-esophageal reflux disease without esophagitis; J45.909 Unspecified asthma, uncomplicated; Z88.2 Allergy status to sulfonamides; Z98.84 Bariatric surgery status; Z79.899 Other long term (current) drug therapy; K29.80 Duodenitis without bleeding
CPT/HCPCS: 88305; 45380; 43239; J2001; J2704

== ENCOUNTER → 2019-11-05 | Outpatient (CLI) | payer BC ==
--- NOTE | 2019-11-05 13:49 | US ---
EXAMINATION TYPE: US venous doppler duplex LE BI DATE OF EXAM: 11/05/2019 1:34 PM COMPARISON: NONE CLINICAL HISTORY: 54-year-old female R60.0 Edema/Swelling Lower Extremity. SIDE PERFORMED: Bilateral TECHNIQUE: The lower extremity deep venous system is examined utilizing real time linear array sonog miguelina with graded compression, doppler sonography and color-flow sonography. FINDINGS: VESSELS IMAGED: External Iliac Vein (EIV) Common Femoral Vein Deep Femoral Vein Greater Saphenous Vein * Femoral Vein Popliteal Vein Small Saphenous Vein * Proximal Calf Veins, not well seen (* superficial vessels) Sonography note: Patient of large body habitus. Right Leg: Negative for DVT Left Leg: Negative for DVT IMPRESSION: No evidence for DVT within the bilateral lower extremities imaged from the groin to the upper calves.
== END | disposition home or self-care (01) ==
LOC: RADUSWWP 12:59
PROVIDERS: ATTEND Family Medicine
DX: R60.0 Localized edema (principal)
CPT/HCPCS: 93970

== ENCOUNTER → 2020-09-04 | Outpatient (CLI) | payer BC ==
--- NOTE | 2020-09-04 12:55 | XR ---
EXAMINATION TYPE: XR Hip RT and AP Pelvis DATE OF EXAM: 09/04/2020 COMPARISON: None HISTORY: Right hip pain TECHNIQUE: Pelvis is examined in the frontal projection and supplemented with 2 views right hip FINDINGS: Femoral heads articulate with the acetabulum. Symphysis pubis and sacroiliac joints are nor mal. Normal bowel gas is present. Right hip articulates with the acetabulum. No acute fractures or di slocations are evident. IMPRESSION: 1. Normal right hip
--- NOTE | 2020-09-04 13:14 | US ---
EXAMINATION TYPE: US pelvic limited DATE OF EXAM: 09/04/2020 COMPARISON: NONE CLINICAL HISTORY: R10.3 Lower abdominal pain. Patient states hip pain and groin pain. TECHNIQUE: Transabdominal (TA). Date of LMP: 2000 EXAM MEASUREMENTS: Uterus: Surgically absent Endometrial Stripe: Surgically absent Right Ovary: Surgically absent Left Ovary: Surgically absent Patient had complete hysterectomy and bilateral oophorectomy in 2000. 1. Uterus: Surgically absent 2. Endometrium: Surgically absent 3. Right Ovary: Surgically absent 4. Left Ovary: Surgically absent 5. Bilateral Adnexa: wnl 6. Posterior cul-de-sac: wnl IMPRESSION: 1. Normal post hysterectomy pelvic ultrasound
== END | disposition home or self-care (01) ==
LOC: RADUSWWP 07:04
PROVIDERS: ATTEND Psychiatry & Neurology Neurology
DX: M25.551 Pain in right hip (principal); R10.30 Lower abdominal pain, unspecified; Z90.710 Acquired absence of both cervix and uterus
CPT/HCPCS: 73502; 76857

== ENCOUNTER → 2020-12-26 | Outpatient (CLI) | payer BC ==
--- NOTE | 2020-12-26 16:29 | US ---
EXAMINATION TYPE: US thyroid st tissue head/neck DATE OF EXAM: 12/26/2020 COMPARISON: CLINICAL HISTORY: E04.1 NONTOXIC SINGLE THYROID NODE. Follow up thyroid GLAND SIZE: Right Lobe: 3.5 x 1.3 x 1.0 cm Overall Parenchyma: heterogenous Left Lobe: 3.8 x 1.4 x 1.6 cm Overall Parenchyma: heterogeneous Isthmus Thickness: 0.2 cm NODULES RIGHT: # of nodules measured on right: 2 1. 0.5 X 0.5 x 0.3 cm, lower medial, cystic or almost completely cystic, anechoic nodule, which is wider than tall, with smooth margins, without echogenic foci. Prior size: 0.5 x 0.3 x 0.3 cm 2. 0.7 X 0.8 x 0.5 cm, lower mid, mixed cystic and solid, isoechoic nodule, which is wider than marquis l, with smooth margins, without echogenic foci. TR 2 Prior size: 0.6 x 0.5 x 0.4 cm LEFT: # of nodules measured on left: 0 Previously seen left nodule not visualized on todays scan ISTHMUS: # of nodules measured in the isthmus: 0 Bilateral neck scanned, no evidence of lymphadenopathy. IMPRESSION: 1. Benign findings. 2017 ACR TI-RADS LEVEL: TR-RADS 2 - Not Suspicious: No FNA *Highest TI-RADS level nodule reported
--- NOTE | 2020-12-30 08:55 | MM ---
Reason for exam: screening (asymptomatic). Last mammogram was performed 1 year and 6 months ago. History: Patient is postmenopausal. Family history of breast cancer in maternal aunt at age 53 and breast cancer in maternal cousin. Reductions of both breasts, March 2012. Benign right mammotome panel of the right breast, May 25, 2010. Benign excisional biopsy of the right breast, July 24, 2007. Benign US right core biopsy of the right breast, July 14, 2007. Took hormonal contraceptives for 5 years beginning at age 16. Physical Findings: A clinical breast exam by your physician is recommended on an annual basis and results should be correlated with mammographic findings. MG 3D Screening Mammo W/Cad Bilateral CC and MLO view(s) were taken. Prior study comparison: June 15, 2019, bilateral MG 3d diag mammo w/cad DEAN. April 14, 2018, bilateral MG 3d screening mammo w/cad. There are scattered fibroglandular densities. Previous mammotome biopsy in the right breast. Benign oil cyst calcifications bilaterally. No significant changes when compared with prior studies. ASSESSMENT: Negative, BI-RAD 1 RECOMMENDATION: Routine screening mammogram of both breasts in 1 year.
== END | disposition home or self-care (01) ==
LOC: RADMAMWWP 10:14
PROVIDERS: ATTEND Family Medicine
DX: Z12.31 Encounter for screening mammogram for malignant neoplasm of breast (principal); E04.1 Nontoxic single thyroid nodule
CPT/HCPCS: 76536; 77063; 77067

== ENCOUNTER → 2020-12-26 | Outpatient (CLI) | payer BC ==
[2020-12-26 15:53] LABS: Hemoglobin A1C 5.7 % (4.0-6.0)
[2020-12-26 19:26] LABS: Protein, Total 7.3 g/dL (6.2-8.2)
== END | disposition home or self-care (01) ==
LOC: LABWHC1 10:21
PROVIDERS: ATTEND Psychiatry & Neurology Neurology
DX: M25.50 Pain in unspecified joint (principal); G62.9 Polyneuropathy, unspecified; R73.9 Hyperglycemia, unspecified
CPT/HCPCS: 36415; 82607; 83036; 84165; 84207; 86334; 86431

== ENCOUNTER → 2021-01-07 | Outpatient (CLI) | payer BC ==
--- NOTE | 2021-01-07 10:10 | MR ---
EXAMINATION TYPE: MR cervical spine wo con DATE OF EXAM: 01/07/2021 COMPARISON: None HISTORY: 55-year-old female neck pain not improved with physical therapy, bilateral hand numbness. No rmal EMG. Neck pain into rt shoulder. R52, M48.03, M54.2, M54.12 TECHNIQUE: Multiplanar, multisequence images of the cervical spine were acquired. FINDINGS: No craniocervical junction abnormality, predental space widening, or prevertebral soft tissue swellin g. Scattered facet and uncovertebral joint spurring is present especially mid and lower cervical spine. Degenerative trace grade 1 retrolisthesis C3-C4. Otherwise, alignment is maintained. No suspicious bone marrow replacement. Mild multilevel degenerative disc disease with mild disc desiccation and disc bulging. Mild ligamentum flavum thickening particularly C3-C4 and C4-C5. At C2-C3, mild facet arthropathy without canal or foraminal stenosis. At C3-C4, facet arthropathy with ligamentum flavum thickening and mild posterior disc bulge. No signi ficant canal or foraminal stenosis. At C4-C5, there is asymmetric marked right-sided uncovertebral joint and facet arthropathy contributi ng to a moderate to severe right neuroforaminal stenosis. Mild left neuroforaminal stenosis. Mild lig amentum flavum thickening. There is encroachment on to the right lateral recess with attenuation of t he right ventral thecal sac but no significant spinal canal stenosis. At C5-C6, broad-based discussed by complex with uncovertebral joint and facet arthropathy. This resul ts in moderate right and mild left neuroforaminal stenosis. No significant canal stenosis. At C6-C7, disc osteophyte complex with uncovertebral joint arthropathy. Mild bilateral neuroforaminal stenosis without spinal canal stenosis. At C7-T1, left paracentral disc osteophyte complex with uncovertebral joint arthropathy. Facet arthro tyler on both sides. Mild left neuroforaminal stenosis. No spinal canal stenosis. IMPRESSION: 1. Mild multilevel degenerative disc disease. Multilevel facet and uncovertebral joint arthropathy. 2. Degenerative grade 1 retrolisthesis at C3-C4. 3. There is encroachment on the thecal sac at various levels without significant spinal canal stenosi s. 4. Marked spondylotic change toward the right at C4-C5 contributes to moderate to severe right neural foraminal stenosis. Encroachment onto the right lateral recess here as well from eccentric disc oste ophyte complex. 5. Moderate right neuroforaminal stenosis at C5-C6 and additional variable mild neural foraminal narr owing as outlined above.
== END | disposition home or self-care (01) ==
LOC: RADMRIMAIN 07:31
PROVIDERS: ATTEND Psychiatry & Neurology Neurology
DX: M47.892 Other spondylosis, cervical region (principal); M43.12 Spondylolisthesis, cervical region; G95.0 Syringomyelia and syringobulbia; M48.03 Spinal stenosis, cervicothoracic region; M54.12 Radiculopathy, cervical region; M48.02 Spinal stenosis, cervical region
CPT/HCPCS: 72141

== ENCOUNTER → 2021-07-10 | Outpatient (CLI) | payer BC ==
--- NOTE | 2021-07-10 20:04 | MR ---
EXAMINATION TYPE: MR brain wo con DATE OF EXAM: 07/10/2021 COMPARISON: MRI brain 2013 HISTORY: Bilateral arm numbness, headaches, evaluate for TIA due to family hx. TECHNIQUE: Multiplanar, multisequence imaging of the brain and brainstem is performed without IV cont rast. FINDINGS: Diffusion weighted images demonstrate no evidence of a recent infarct or other diffusion abnormality. There is no extraaxial fluid collection or significant white matter signal abnormality. The ventricu lar system and cisternal spaces are normal in size and appearance. The brain volume is age appropria te. Midline structures redemonstrate normal morphology. The craniocervical junction appears within aaron l limits. Normal vascular flow voids are present. The visualized sinuses are clear and the globes are intact. Mild patchy fluid towards right petrous apex redemonstrated unchanged from prior presumed re tained secretions IMPRESSION: No MRI evidence for recent infarct. No significant white matter changes.
--- NOTE | 2021-07-11 03:24 | MR ---
EXAMINATION TYPE: MR angio head wo/neck wo/w con DATE OF EXAM: 07/10/2021 COMPARISON: None HISTORY: Bilateral arm numbness, headaches, evaluate for TIA due to family hx. CONTRAST: Standard multiplanar, multisequence MRI departmental protocol images were obtained without contrast a nd with 10 mL intravenous Gadavist gadolinium contrast. MR angiographic images were obtained of the intracerebral arterial circulation. There is arterial flow in the vertebral basilar artery system. There is arterial flow in the distal i nternal carotid arteries. There is arterial flow in the anterior middle and posterior cerebral arteri es. There is no mass effect. There is good visualization of the vessels. There is no evidence of mass effect. There is no aneurysm or neovascularity. There is no evidence of an aneurysm. There is no karen dence of stenosis. IMPRESSION: Normal MR angiogram of the brain.
== END | disposition home or self-care (01) ==
LOC: RADECHMAIN 13:09
PROVIDERS: ATTEND Psychiatry & Neurology Neurology
DX: R07.9 Chest pain, unspecified (principal); G45.9 Transient cerebral ischemic attack, unspecified
CPT/HCPCS: 93306; 70544; 70549; 70551; A9585

== ENCOUNTER 2021-07-21 19:57 | Observation (INO) | payer BC ==
[2021-07-21 20:27] LABS: Basophils # (A) 0.1 k/uL (0-0.2); Basophils % (A) 1 %; Eosinophils # (A) 0.4 k/uL (0-0.7); Eosinophils % (A) 4 %; HCT 43.7 % (34.0-46.0); HGB 14.5 gm/dL (11.4-16.0); Lymphocytes # (A) 2.5 k/uL (1.0-4.8); Lymphocytes % (A) 30 %; MCH 30.4 pg (25.0-35.0); MCHC 33.2 g/dL (31.0-37.0); MCV 91.7 fL (80.0-100.0); Mean Platelet Volume 7.8; Monocytes # (A) 0.4 k/uL (0-1.0); Monocytes % (A) 5 %; Neutrophils # (A) 5.1 k/uL (1.3-7.7); Neutrophils % (A) 60 %; Platelet Count 312 k/uL (150-450); RBC 4.77 m/uL (3.80-5.40); RDW 14.6 % (11.5-15.5); WBC 8.6 k/uL (3.8-10.6)
--- NOTE | 2021-07-21 20:35 | XR ---
EXAMINATION TYPE: XR chest 2V DATE OF EXAM: 07/21/2021 COMPARISON: 07/26/2017 HISTORY: Pneumonia TECHNIQUE: 2 views FINDINGS: Heart and mediastinum are normal. Lungs are clear of consolidation. There are no hilar mass es. The bony thorax is intact. IMPRESSION: Normal chest. No change.
[2021-07-21 20:36] LABS: INR 0.9 (<1.2); Partial Thromboplastin Time 22.8 sec (22.0-30.0); Prothrombin Time 9.8 sec (9.0-12.0)
[2021-07-21 20:44] LABS: Albumin 4.1 g/dL (3.5-5.0); Potassium 4.1 mmol/L (3.5-5.1); Total Bilirubin 0.6 mg/dL (0.2-1.3); Total Protein 7.1 g/dL (6.3-8.2)
--- NOTE | 2021-07-21 22:53 | ED ---
Chest Pain HPI - General Chief Complaint: Chest Pain Stated Complaint: Chest pain,Leg swelling Time Seen by Provider: 07/21/21 22:29 Source: patient Mode of arrival: wheelchair Limitations: no limitations - History of Present Illness MD Complaint: chest pain Onset/Timin -: week(s) Onset: during rest Pain Location: substernal Pain Radiation: back Severity: moderate Quality: other (Like heartburn) Consistency: intermittent Improves With: nothing Worsens With: nothing Context: recent illness Treatments Prior to Arrival: none - Related Data Home Medications Medication Instructions Recorded Confirmed Omeprazole [PriLOSEC] 20 mg PO DAILY 06/11/15 07/21/21 Dicyclomine [Bentyl] 10 mg PO TID PRN 10/04/19 07/21/21 Escitalopram Oxalate [Lexapro] 20 mg PO HS 10/04/19 07/21/21 Albuterol Sulfate [Albuterol 2 puff PO RT-Q6H PRN 07/21/21 07/21/21 Sulfate Hfa] Beclomethasone Dipropionate [Qvar 2 puff INHALATION RT-DAILY 07/21/21 07/21/21 80mcg Redihaler] Cyclobenzaprine [Flexeril] 10 mg PO BID 07/21/21 07/21/21 Furosemide [Lasix] 20 mg PO BID 07/21/21 07/21/21 Gabapentin 600 mg PO BID 07/21/21 07/21/21 Galcanezumab-Gnlm [Emgality Pen] 120 mg SQ QMONTHLY 07/21/21 07/21/21 Rimegepant Sulfate [Nurtec Odt] 75 mg PO DAILY PRN 07/21/21 07/21/21 oxyCODONE HCL/ACETAMINOPHEN 1 tab PO Q6HR PRN 07/21/21 07/21/21 [Percocet 10-325 mg] Allergies Allergy/AdvReac Type Severity Reaction Status Date / Time Sulfa (Sulfonamide Allergy Rash/Hives Verified 07/21/21 23:34 Antibiotics) Review of Systems ROS Statement: Those systems with pertinent positive or pertinent negative responses have been documented in the HPI. ROS Other: All systems not noted in ROS Statement are negative. Constitutional: Denies: fever, chills, weakness Respiratory: Denies: cough, dyspnea Cardiovascular: Reports: as per HPI, chest pain. Denies: palpitations, dyspnea on exertion, orthopnea, edema, syncope Gastrointestinal: Denies: abdominal pain, vomiting, diarrhea Genitourinary: Denies: dysuria, hematuria Musculoskeletal: Denies: back pain Skin: Denies: rash Neurological: Denies: headache, weakness, numbness EKG Findings - EKG Results: EKG: interpreted by GEN SALMON, sinus rhythm (Rate 79 bpm), normal axis, normal QRS, normal ST/T, no acute changes Past Medical History Past Medical History: Asthma, GERD/Reflux, Hyperlipidemia, Musculoskeletal Disorder, Osteoarthritis (OA), Sleep Apnea/CPAP/BIPAP Additional Past Medical History / Comment(s): SLEEP APNEA (NO C-PAP), MIGRAINES, 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 History of Any Multi-Drug Resistant Organisms: MRSA Date of last positivie culture/infection: 2017 MDRO Source:: breast, arm abdomen Past Surgical History: Back Surgery, Breast Surgery, Cholecystectomy, Hysterectomy, Orthopedic Surgery Additional Past Surgical History / Comment(s): abdominal plasty ,gastric stapling(1982), LEFT KNEE SURG X3., BREAST REDUCTION. Past Anesthesia/Blood Transfusion Reactions: Motion Sickness, Postoperative Nausea & Vomiting (PONV) Additional Past Anesthesia/Blood Transfusion Reaction / Comment(s): PTS MOTHER SEPTIC FROM BLOOD TRANSFUSION. Past Psychological History: Anxiety Smoking Status: Never smoker Past Alcohol Use History: None Reported Past Drug Use History: None Reported - Past Family History Father Family Medical History: Cancer Additional Family Medical History / Comment(s): ESOPHAGEAL CANCER Mother Family Medical History: Cancer Additional Family Medical History / Comment(s): PANCREATIC CANCER General Exam Limitations: no limitations General appearance: alert, in no apparent distress Head exam: Present: atraumatic, normocephalic Eye exam: Present: normal appearance. Absent: scleral icterus, conjunctival injection Neck exam: Present: normal inspection Respiratory exam: Present: normal lung sounds bilaterally. Absent: respiratory distress, wheezes, rales, rhonchi, stridor Cardiovascular Exam: Present: regular rate, normal rhythm, normal heart sounds. Absent: systolic murmur, diastolic murmur, rubs, gallop GI/Abdominal exam: Present: soft. Absent: distended, tenderness, guarding, rebound, rigid, mass Extremities exam: Present: normal inspection, normal capillary refill. Absent: pedal edema, calf tenderness Back exam: Present: normal inspection. Absent: CVA tenderness (R), CVA tendern ess (L) Neurological exam: Present: alert Skin exam: Present: warm, dry, intact, normal color. Absent: rash Course Vital Signs 07/21/21 07/21/21 07/21/21 20:00 23:00 23:30 Temperature 97.7 F Pulse Rate 79 67 66 Respiratory 20 13 16 Rate Blood Pressure 150/90 133/92 124/86 O2 Sat by Pulse 99 95 97 Oximetry 07/22/21 07/22/21 07/22/21 00:00 00:30 06:00 Temperature Pulse Rate 63 64 60 Respiratory 12 21 19 Rate Blood Pressure 124/86 117/78 105/65 O2 Sat by Pulse 98 94 L Oximetry 07/22/21 09:50 Temperature Pulse Rate 68 Respiratory 20 Rate Blood Pressure 110/70 O2 Sat by Pulse 95 Oximetry Disposition Clinical Impression: Chest pain Disposition: ADMITTED IP TO THIS HOSP Condition: Stable Is patient prescribed a controlled substance at d/c from ED?: No
[2021-07-21] MEDS ORDERED: traMADol 50 MG TAB PO STA (23:35)
[2021-07-22] MEDS ORDERED: NITROGLYCERIN SL TABS 0.4 MG TAB SUBLINGUAL PRN (00:23)
--- NOTE | 2021-07-22 02:05 | P.HPIM ---
History of Present Illness H&P Date: 07/22/21 Patient is a 56-year-old female with a PMH of asthma and GERD who presents to the emergency room with complaints of chest discomfort or shortness of breath. The patient reports that ever since xander COVID in May, she has had significantly diminished exercise tolerance, intermittent substernal 8 out of 10 chest discomfort lasting for a few minutes at a time, exertional and nonexertional, with associated shortness of breath and nausea. She denied any prior history of similar symptoms. She also reports occasional bilateral lower extremity swelling. Denied abdominal pain, nausea, vomiting, fever, chills, cough. EKG emergency room reveals sinus rhythm at [address]/T-wave ch anges noted as reviewed by me. Chest x-ray was unremarkable. Laboratory evaluation was also unremarkable with troponin less than 0.012. Review of systems: Pertinent positives and negatives as discussed in HPI, a complete review of systems was performed and all other systems are negative. Physical examination: General: non toxic, no distress, appears at stated age, obese Derm: no unusual rashes/lesions no unusual ecchymoses, warm, dry Head: atraumatic, normocephalic, symmetric Eyes: EOMI, no lid lag, anicteric sclera, pupils equal round reactive to light ENT: Nose and ears atraumatic, no thrush, no pharyngeal erythema Neck: No thyromegaly, no cervical lymphadenopathy, trachea midline, supple Mouth: no lip lesion, mucus membranes moist Cardiovascular: S1S2 reg, no murmur, positive posterior tibial pulse bilateral, no edema, capillary refill less than 2 seconds Lungs: CTA bilateral, no rhonchi, no rales , no accessory muscle use Abdominal: soft, nontender to palpation, no guarding, no appreciable organomegaly, normal bowel sounds Ext: no gross muscle atrophy, muscle strength 5 out of 5 in all 4 extremities grossly, no contractures, Neuro: CN II-XI grossly intact, light touch intact all 4 extremities, finger to nose within normal limits, Psych: Alert, oriented, appropriate affect Assessment/plan Atypical chest discomfort -Cardiology consult -Cardiac monitoring -Trend troponin -Continue with aspirin and statin Chronic conditions: Asthma, GERD -Continue with home meds DVT prophylaxis -Lovenox The patient is admitted with an anticipated less than 2 midnight stay for evaluation of chest pain CODE STATUS: Full Code Discussed with: Patient Anticipated discharge date: in am Anticipated discharge place: Home Past Medical History Past Medical History: Asthma, GERD/Reflux, Hyperlipidemia, Musculoskeletal Disorder, Osteoarthritis (OA), Sleep Apnea/CPAP/BIPAP Additional Past Medical History / Comment(s): SLEEP APNEA (NO C-PAP), MIGRAINES, 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 History of Any Multi-Drug Resistant Organisms: MRSA Date of last positivie culture/infection: 2017 MDRO Source:: breast, arm abdomen Past Surgical History: Back Surgery, Breast Surgery, Cholecystectomy, H ysterectomy, Orthopedic Surgery Additional Past Surgical History / Comment(s): abdominal plasty ,gastric stapling(1982), LEFT KNEE SURG X3., BREAST REDUCTION. Past Anesthesia/Blood Transfusion Reactions: Motion Sickness, Postoperative Nausea & Vomiting (PONV) Additional Past Anesthesia/Blood Transfusion Reaction / Comment(s): PTS MOTHER SEPTIC FROM BLOOD TRANSFUSION. Past Psychological History: Anxiety Smoking Status: Never smoker Past Alcohol Use History: None Reported Past Drug Use History: None Reported - Past Family History Father Family Medical History: Cancer Additional Family Medical History / Comment(s): ESOPHAGEAL CANCER Mother Family Medical History: Cancer Additional Family Medical History / Comment(s): PANCREATIC CANCER Medications and Allergies Home Medications Medication Instructions Recorded Confirmed Type Omeprazole [PriLOSEC] 20 mg PO DAILY 06/11/15 07/21/21 History Dicyclomine [Bentyl] 10 mg PO TID PRN 10/04/19 07/21/21 History Escitalopram Oxalate [Lexapro] 20 mg PO HS 10/04/19 07/21/21 History Albuterol Sulfate [Albuterol 2 puff PO RT-Q6H PRN 07/21/21 07/21/21 History Sulfate Hfa] Beclomethasone Dipropionate [Qvar 2 puff INHALATION RT-DAILY 07/21/21 07/21/21 History 80mcg Redihaler] Cyclobenzaprine [Flexeril] 10 mg PO BID 07/21/21 07/21/21 History Furosemide [Lasix] 20 mg PO BID 07/21/21 07/21/21 History Gabapentin 600 mg PO BID 07/21/21 07/21/21 History Galcanezumab-Gnlm [Emgality Pen] 120 mg SQ QMONTHLY 07/21/21 07/21/21 History Rimegepant Sulfate [Nurtec Odt] 75 mg PO DAILY PRN 07/21/21 07/21/21 History oxyCODONE HCL/ACETAMINOPHEN 1 tab PO Q6HR PRN 07/21/21 07/21/21 History [Percocet 10-325 mg] Allergies Allergy/AdvReac Type Severity Reaction Status Date / Time Sulfa (Sulfonamide Allergy Rash/Hives Verified 07/21/21 23:34 Antibiotics) Physical Exam Vitals: Vital Signs Temp Pulse Resp BP Pulse Ox 07/22/21 00:30 64 21 117/78 94 L 07/22/21 00:00 63 12 124/86 98 07/21/21 23:30 66 16 124/86 97 07/21/21 23:00 67 13 133/92 95 07/21/21 20:00 97.7 F 79 20 150/90 99 Intake and Output 07/21/21 07/21/21 07/22/21 14:59 22:59 06:59 Other: Weight 102.512 kg Results CBC & Chem 7: 07/21/21 20:18 07/21/21 20:18
[2021-07-22] MEDS ORDERED: DICYCLOMINE 10 MG CAP PO PRN (02:07)
[2021-07-22] MEDS ORDERED: ALBUTEROL NEBULIZED 2.5 MG/3 ML INHALATION PRN (02:07)
[2021-07-22] MEDS: oxyCODONE-APAP 10-325MG 1 EACH TAB PO PRN ×2 (05:52→13:23)
[2021-07-22] MEDS ORDERED: FLUTICASONE 110 MCG INHALER INHALATION SCH (08:00)
[2021-07-22] MEDS ORDERED: GABAPENTIN 300 MG CAP PO SCH (09:00)
[2021-07-22] MEDS ORDERED: ENOXAPARIN 40 MG/0.4 ML SYRINGE SQ SCH (09:00)
[2021-07-22] MEDS ORDERED: CYCLOBENZAPRINE 10 MG TAB PO SCH (09:00)
[2021-07-22] MEDS ORDERED: PANTOPRAZOLE 40 MG TABLET PO SCH (09:00)
[2021-07-22] MEDS ORDERED: FUROSEMIDE 20 MG TAB PO SCH (09:00)
[2021-07-22] MEDS ORDERED: DOBUTamine DRIP for NUC MED 500 MG in DEXTROSE/WATER 1 250ML.BAG IV PRN (09:19)
[2021-07-22] MEDS ORDERED: ATROPINE SULFATE 0.1 MG/ML 10ML SYRINGE ONE (10:40)
--- NOTE | 2021-07-22 10:45 | P.PN ---
Subjective Progress Note Date: 07/22/21 Hospital course: Patient is a Physical exam: Vital signs reviewed and stable. General: Nontoxic, no distress and appears stated age. Derm: Skin warm and dry, normal coloration for ethnicity. Head: Atraumatic, normocephalic and symmetric. Eyes: EOMs intact, no lid lag, and anicteric sclera Mouth: no lip lesions, mucus membranes moist Cardiovascular: regular rate and rhythm with normal S1S2, no murmur, positive posterior tibial pulses bilaterally, and cap refill < 2 seconds. Lungs: Respirations even, regular, and unlabored on room air. Lungs CTA bilaterally, no rhonchi, no rales, no wheezing, and no accessory muscle usage. Abdominal: soft, nontender to palpation, no guarding, no appreciable organomegaly Ext: ROM intact. No gross muscle atrophy, no edema, no contractures Neuro: Speech clear, face symmetrical and CN II-XII grossly intact with no noted focal neuro deficits Psych: Alert and oriented to person, place, time, and situation. Appropriate and pleasant affect. Assessment and Plan of Care: CODE STATUS:[] DVT prophylaxis: [] Discussed with: [] Anticipated discharge date: [] Anticipated discharge place: [] A total of [] minutes was spent on the care of this complex patient more than 50% of the time was spent in counseling and care coordination. Objective - Vital Signs Vital signs: Vital Signs Temp 97.7 F 07/21/21 20:00 Pulse 68 07/22/21 09:50 Resp 20 07/22/21 09:50 BP 110/70 07/22/21 09:50 Pulse Ox 95 07/22/21 09:50 Intake & Output 07/21/21 07/22/21 07/22/21 18:59 06:59 18:59 Weight 102.512 kg - Labs CBC & Chem 7: 07/21/21 20:18 07/21/21 20:18
--- NOTE | 2021-07-22 11:08 | P.CRDCN ---
History of Present Illness History of present illness: HISTORY OF PRESENTING ILLNESS This is a pleasant 56-year-old female past medical history significant for asthma, GERD, hyperlipidemia, sleep apnea, migraines, bulging disc in neck, chronic back pain, hysterectomy and cholecystectomy, covid-19 in May. 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 We have been asked to see in consultation for chest pain. Patient presents emergency department with complaints of chest discomfort. She states ever since she had covid 19 in May her chest discomfort has worsened. She describes it as starting as indigestion and now describes it as a tightness. She states it is intermittent and comes and goes. Radiating to her in between her shoulder blades. She has associated shortness of breath. She states it is aggravated by activity. She states also that she had increased lower extremity edema and abdominal edema. She was started on Lasix 20 mg twice a day with improvement. She states she occasionally takes Lasix over the summer when she has increased edema 2 to the warm weather. She denies any history of CAD, NC, stroke, diabetes, hypertension. She has a significant family history of coronary artery disease. She is a former smoker. DIAGNOSTICS EKG reveals sinus rhythm, heart rate 79, T wave inversion in lead aVL, no significant ST ST-T wave abnormalities suggest acute ischemia. Prior EKG in 2018 with similar findings Recent echocardiogram 07/10/21 revealed an ejection fraction greater than 55%, mild mitral regurgitation, mild tricuspid regurgitation Telemetry tracings indicate sinus mechanism Chest xray no acute cardiopulmonary process. Laboratory reviewed, CBC unremarkable, d-dimer negative, troponin negative 3, sodium 137, potassium 4.1, BUN 14, serum creatinine 1.0, magnesium 2.0 Current home medications include Lasix 20 mg twice a day, Lexapro, albuterol, Percocet, omeprazole, gabapentin, Bentyl, Flexeril REVIEW OF SYSTEMS At the time of my exam: CONSTITUTIONAL: Denies fever or chills. CARDIOVASCULAR: Denies chest pain, shortness of breath, orthopnea, PND or palpitations. RESPIRATORY: Denies cough. GASTROINTESTINAL: Denies abdominal pain, diarrhea, constipation, nausea or vomiting. MUSCULOSKELETAL: Denies myalgias. NEUROLOGIC: Denies numbness, tingling, headache or weakness. ENDOCRINE: Denies fatigue, weight change, polydipsia or polyurina. GENITOURINARY: Denies burning, hematuria or urgency with micturation. HEMATOLOGIC: Denies history of anemia or bleeding. PHYSICAL EXAMINATION Blood pressure 110/70, heart rate 68, afebrile, saturations 95% on room air CONSTITUTIONAL: No apparent distress. HEENT: Head is normocephalic. Pupils are equal, round. Sclerae anicteric. Mucous membranes of the mouth are moist. No JVD. No carotid bruit. CHEST EXAMINATION: Lungs wheezing bilaterally to auscultation. No chest wall tenderness is noted on palpation or with deep breathing. HEART EXAMINATION: Regular rate and rhythm. S1, S2 heard. No murmurs, gallops or rub. ABDOMEN: Soft, nontender. Positive bowel sounds. EXTREMITIES: 2+ peripheral pulses, Moderate bilateral lower extremity edema and no calf tenderness. SKIN: Warm, dry NEUROLOGIC EXAMINATION: Patient is awake, alert and oriented x3. ASSESSMENT Chest pain, atypical, acute coronary syndrome has ruled out Lower extremity edema Asthma GERD Hyperlipidemia Obstructive sleep apnea History of Covid 19 in May PLAN Patient with chest pain but also significant wheezing on exam. An acute coronary event has been ruled out with no EKG evidence of ischemia and negative cardiac enzymes. Obtain limited 2D echocardiogram and doppler study and pro BNP Perform Dobutamine stress echo test to assess for stress induced cardiac ischemia. If abnormal will consider coronary angiography. If stress test and echocardiogram with no acute findings, no further inpatient cardiac work up at this time. Thank you kindly for this consultation. Nurse practitioner note has been reviewed by physician. Signing provider agrees with the documented findings, assessment, and plan of care. 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 History of Any Multi-Drug Resistant Organisms: MRSA Date of last positivie culture/infection: 2017 MDRO Source:: breast, arm abdomen Past Surgical History: Back Surgery, Breast Surgery, Cholecystectomy, Hy sterectomy, Orthopedic Surgery Additional Past Surgical History / Comment(s): abdominal plasty ,gastric stapling(1982), LEFT KNEE SURG X3., BREAST REDUCTION. Past Anesthesia/Blood Transfusion Reactions: Motion Sickness, Postoperative Nausea & Vomiting (PONV) Additional Past Anesthesia/Blood Transfusion Reaction / Comment(s): PTS MOTHER SEPTIC FROM BLOOD TRANSFUSION. Past Psychological History: Anxiety Smoking Status: Never smoker Past Alcohol Use History: None Reported Past Drug Use History: None Reported - Past Family History Father Family Medical History: Cancer Additional Family Medical History / Comment(s): ESOPHAGEAL CANCER Mother Family Medical History: Cancer Additional Family Medical History / Comment(s): PANCREATIC CANCER Medications and Allergies Home Medications Medication Instructions Recorded Confirmed Type Omeprazole [PriLOSEC] 20 mg PO DAILY 06/11/15 07/21/21 History Dicyclomine [Bentyl] 10 mg PO TID PRN 10/04/19 07/21/21 History Escitalopram Oxalate [Lexapro] 20 mg PO HS 10/04/19 07/21/21 History Albuterol Sulfate [Albuterol 2 puff PO RT-Q6H PRN 07/21/21 07/21/21 History Sulfate Hfa] Beclomethasone Dipropionate [Qvar 2 puff INHALATION RT-DAILY 07/21/21 07/21/21 History 80mcg Redihaler] Cyclobenzaprine [Flexeril] 10 mg PO BID 07/21/21 07/21/21 History Furosemide [Lasix] 20 mg PO BID 07/21/21 07/21/21 History Gabapentin 600 mg PO BID 07/21/21 07/21/21 History Galcanezumab-Gnlm [Emgality Pen] 120 mg SQ QMONTHLY 07/21/21 07/21/21 History Rimegepant Sulfate [Nurtec Odt] 75 mg PO DAILY PRN 07/21/21 07/21/21 History oxyCODONE HCL/ACETAMINOPHEN 1 tab PO Q6HR PRN 07/21/21 07/21/21 History [Percocet 10-325 mg] Allergies Allergy/AdvReac Type Severity Reaction Status Date / Time Sulfa (Sulfonamide Allergy Rash/Hives Verified 07/21/21 23:34 Antibiotics) Physical Exam Vitals: Vital Signs Temp Pulse Resp BP Pulse Ox 07/22/21 00:30 64 21 117/78 94 L 07/22/21 00:00 63 12 124/86 98 07/21/21 23:30 66 16 124/86 97 07/21/21 23:00 67 13 133/92 95 07/21/21 20:00 97.7 F 79 20 150/90 99 Intake and Output 07/21/21 07/22/21 07/22/21 22:59 06:59 14:59 Other: Weight 102.512 kg Results 07/21/21 20:18 07/21/21 20:18 Cardiac Enzymes 07/21/21 07/21/21 07/22/21 Range/Units 20:18 20:18 01:17 AST 20 (14-36) U/L Troponin I <0.012 <0.012 (0.000-0.034) ng/mL 07/22/21 Range/Units 03:06 AST (14-36) U/L Troponin I <0.012 (0.000-0.034) ng/mL Coagulation 07/21/21 Range/Units 20:18 PT 9.8 (9.0-12.0) sec APTT 22.8 (22.0-30.0) sec CBC 07/21/21 Range/Units 20:18 WBC 8.6 (3.8-10.6) k/uL RBC 4.77 (3.80-5.40) m/uL Hgb 14.5 (11.4-16.0) gm/dL Hct 43.7 (34.0-46.0) % Plt Count 312 (150-450) k/uL Comprehensive Metabolic Panel 07/21/21 Range/Units 20:18 Sodium 137 (137-145) mmol/L Potassium 4.1 (3.5-5.1) mmol/L Chloride 105 (98-107) mmol/L Carbon Dioxide 27 (22-30) mmol/L BUN 14 (7-17) mg/dL Creatinine 1.01 (0.52-1.04) mg/dL Glucose 89 (74-99) mg/dL Calcium 9.0 (8.4-10.2) mg/dL AST 20 (14-36) U/L ALT 21 (4-34) U/L Alkaline Phosphatase 54 (38-126) U/L Total Protein 7.1 (6.3-8.2) g/dL Albumin 4.1 (3.5-5.0) g/dL Current Medications Generic Name Dose Route Start Last Admin Trade Name Freq PRN Reason Stop Dose Admin Albuterol Sulfate 2.5 mg 07/22/21 02:07 Albuterol Nebulized 2.5 Mg/3 Ml INHALATION RT-Q6H PRN Shortness Of Breath Aspirin 325 mg 07/23/21 09:00 Aspirin 325 Mg Tab PO DAILY [facility] Cyclobenzaprine HCl 10 mg 07/22/21 09:00 Cyclobenzaprine 10 Mg Tab PO BID [facility] Dicyclomine HCl 10 mg 07/22/21 02:07 Dicyclomine 10 Mg Cap PO TID PRN IBS Enoxaparin Sodium 40 mg 07/22/21 09:00 Enoxaparin 40 Mg/0.4 Ml Syringe SQ DAILY [facility] Escitalopram Oxalate 20 mg 07/22/21 21:00 Escitalopram 20 Mg Tab PO HS [facility] Fluticasone Propionate 1 puff 07/22/21 08:00 Fluticasone 110 Mcg Inhaler INHALATION RT-DAILY [facility] Furosemide 20 mg 07/22/21 09:00 Furosemide 20 Mg Tab PO BID [facility] Gabapentin 600 mg 07/22/21 09:00 Gabapentin 300 Mg Cap PO BID [facility] Nitroglycerin 0.4 mg 07/22/21 00:23 Nitroglycerin Sl Tabs 0.4 Mg Tab SUBLINGUAL Q5M PRN Chest Pain Oxycodone/Acetaminophen 1 each 07/22/21 02:07 07/22/21 05:52 Oxycodone-Apap 10-325mg 1 Each Tab PO 1 each Q6HR PRN Administration Pain Pantoprazole Sodium 40 mg 07/22/21 09:00 Pantoprazole 40 Mg Tablet PO DAILY [facility] Intake and Output 07/21/21 07/22/21 07/22/21 22:59 06:59 14:59 Other: Weight 102.512 kg 07/21/21 20:18 07/21/21 20:18
--- NOTE | 2021-07-22 11:29 | P.STRESS ---
- Stress Test Note Stress Test Results/Findings: Exam Performed: Exam Date: Reason for Exam: Height: 5 ft 3 in Weight: 102.512 kg Protocol: Stage: Duration of Exercise: Resting Heart Rate: Resting Blood Pressure: Maximum Achieved Heart Rate: Maximum Achieved Blood Pressure: 85% PMHR: 100% PMHR: METS: Technologist Comment: Stress Test Results/Findings: This patient is being evaluated for symptoms of chest pain. Stress data: Baseline EKG showed sinus rhythm. Blood pressure at rest was 80/63, pulse rate of 65. History and also dobutamine was initiated at 10 mics and was titrated to 40 mics, reaching a maximum heart rate of about 148 with a peak blood pressure of about 102/48. EKGs taken during and after exercise did not reveal any significant changes from the baseline. Patient did not experience any chest pain. Patient also received half a milligram of atropine. Echo data: Baseline echo images show normal wall motion and thickening. Images at low dose and high dose dobutamine showed augmentation of wall motion and thickening in all segments. Final impression: #1. Negative dobutamine stress test #2. Negative dobutamine stress echo
--- NOTE | 2021-07-22 11:46 | ECHOF ---
Referral Reason:Repeat to evaluate LV function/pericardial effusio MEASUREMENTS -------- HEIGHT: 160.0 cm WEIGHT: 102.5 kg BP: IVSd: 0.8 cm (0.6 - 1.1) LVIDd: 5.2 cm (3.9 - 5.3) LVPWd: 1.0 cm (0.6 - 1.1) IVSs: 1.2 cm LVIDs: 3.3 cm LVPWs: 1.5 cm FINDINGS -------- This was a technically difficult study with suboptimal views. Limited Study The left ventricular size is normal. Left ventricular wall thickness is normal. Overall left vent ricular systolic function is normal with, an EF between 55 - 60 %. Lumason used There is no pericardial effusion. CONCLUSIONS -------- 1. The left ventricular size is normal. 2. Left ventricular wall thickness is normal. 3. Overall left ventricular systolic function is normal with, an EF between 55 - 60 %. 4. Lumason used 5. There is no pericardial effusion. UPPER CUTTER: Ruby Mcnamara RDCS
--- NOTE | 2021-07-22 13:56 | P.DS ---
<Jose Alfredo Graham - Last Filed: 07/22/21 13:56> Providers Expected date of discharge: 07/22/21 Hospital Course: Discharge Diagnosis: Atypical Chest pain, acute coronary event ruled out GERD Asthma Hospital Course: Patient is a very pleasant 56-year-old female with a past medical history of GERD, asthma, and recent Covid 19 virus infection in May 2021. Patient presented to the emergency department on 07/22/21 with a chief complaint of chest discomfort and shortness of breath with exertion. Patient states the symptoms began approximately 2 months ago after coming down with Covid 19 virus infection and have progressively worsened. Patient reports decreased exercise tolerance, dyspnea with exertion, and intermittent chest discomfort accompanied by occasional nausea. Patient also reports significant family cardiac history but personally denies having any cardiac history or history of hypertension, hyperlipidemia, or diabetes. Patient underwent full evaluation in the emergency department EKG revealed normal sinus rhythm at 79 bpm with no noted T-wave or ST abnormalities. Chest x-ray was negative for acute cardiopulmonary process. Labs revealed unremarkable CBC, CMP, and coags. Troponins trended 3 were negative at less than 0.012. D-dimer also negative at 0.35. Patient was admitted under our services with consultation to cardiology. Echocardiogram completed revealing a normal EF between 55 and 60% with no significant valvular abnormalities reported. Patient then underwent a Lexiscan stress which resulted as Negative dobutamine stress test and Negative dobutamine stress echo. Patient has been cleared from cardiac standpoint for discharge home. Recommending follow-up outpatient in office Physical exam: Patient seen and examined at bedside this morning. She appeared to be resting comfortably showing no signs of acute distress. Vital signs unremarkable. Patient currently reports that she is currently free from chest pain or shortness of breath at this current time and denies having any other complaints including headache, lightheadedness, dizziness, palpitations, nausea, vomiting, or experiencing any numbness/tingling/weakness in her extremities. Vital signs reviewed and stable. General: Nontoxic, no distress and appears stated age. Derm: Skin warm and dry, normal coloration for ethnicity. Head: Atraumatic, normocephalic and symmetric. Eyes: EOMs intact, no lid lag, and anicteric sclera Mouth: no lip lesions, mucus membranes moist Cardiovascular: regular rate and rhythm with normal S1S2, no murmur, positive posterior tibial pulses bilaterally, and cap refill < 2 seconds. Lungs: Respirations even, regular, and unlabored on room air. Lungs CTA bilaterally, no rhonchi, no rales, no wheezing, and no accessory muscle usage. Abdominal: soft, nontender to palpation, no guarding, no appreciable organomegaly Ext: ROM intact. No gross muscle atrophy, 1+ pitting bilateral lower extremity edema, no contractures Neuro: Speech clear, face symmetrical and CN II-XII grossly intact with no noted focal neuro deficits Psych: Alert and oriented to person, place, time, and situation. Appropriate and pleasant affect. A total of 35 minutes of time were spent preparing this complex discharge summary. Health Concerns: PT WOULD LIKE PNE VACCINE PRIOR TO DISCHARGE. Patient Condition at Discharge: Stable Plan - Discharge Summary New Discharge Prescriptions: Continue Omeprazole [PriLOSEC] 20 mg PO DAILY Escitalopram Oxalate [Lexapro] 20 mg PO HS Dicyclomine [Bentyl] 10 mg PO TID PRN PRN Reason: IBS oxyCODONE HCL/ACETAMINOPHEN [Percocet 10-325 mg] 1 tab PO Q6HR PRN PRN Reason: Pain Rimegepant Sulfate [Nurtec Odt] 75 mg PO DAILY PRN PRN Reason: Migraine Headache Gabapentin 600 mg PO BID Galcanezumab-Gnlm [Emgality Pen] 120 mg SQ QMONTHLY Cyclobenzaprine [Flexeril] 10 mg PO BID Albuterol Sulfate [Albuterol Sulfate Hfa] 2 puff PO RT-Q6H PRN PRN Reason: Shortness Of Breath Beclomethasone Dipropionate [Qvar 80mcg Redihaler] 2 puff INHALATION RT-DAILY Furosemide [Lasix] 20 mg PO BID Discharge Medication List Omeprazole [PriLOSEC] 20 mg PO DAILY 06/11/15 [History] Dicyclomine [Bentyl] 10 mg PO TID PRN 10/04/19 [History] Escitalopram Oxalate [Lexapro] 20 mg PO HS 10/04/19 [History] Albuterol Sulfate [Albuterol Sulfate Hfa] 2 puff PO RT-Q6H PRN 07/21/21 [History] Beclomethasone Dipropionate [Qvar 80mcg Redihaler] 2 puff INHALATION RT-DAILY 07/21/21 [History] Cyclobenzaprine [Flexeril] 10 mg PO BID 07/21/21 [History] Furosemide [Lasix] 20 mg PO BID 07/21/21 [History] Gabapentin 600 mg PO BID 07/21/21 [History] Galcanezumab-Gnlm [Emgality Pen] 120 mg SQ QMONTHLY 07/21/21 [History] Rimegepant Sulfate [Nurtec Odt] 75 mg PO DAILY PRN 07/21/21 [History] oxyCODONE HCL/ACETAMINOPHEN [Percocet 10-325 mg] 1 tab PO Q6HR PRN 07/21/21 [ History] Follow up Appointment(s)/Referral(s): Rohan Russell DO [Primary Care Provider] - 1-2 days Odette Daily MD [STAFF PHYSICIAN] - 1 Week Patient Instructions/Handouts: Chest Pain (ED) Activity/Diet/Wound Care/Special Instructions: Activity: As tolerated. Take breaks as needed. Diet: Heart healthy and carb consistent diet. Avoid salts, or foods with hidden salts such as canned or boxed foods and frozen dinners. Extra salt makes your heart work harder and traps the fluid in your body for longer. Special Instructions: Take all of your medications as directed and remember to keep all of your doctor's appointments and follow-up as needed. Thank you for allowing us to participate in your care, it was truly a pleasure having you for our patient!!! Discharge Disposition: HOME SELF-CARE <Adele Kelley - Last Filed: 07/22/21 17:52> Providers Date of admission: 07/22/21 00:24 Attending physician: Jinny Garza MD Consults: 07/22/21 00:24 Consult Physician Routine Consulting Provider: Bertin Hodge Consult Reason/Comments: chest pain Do you want consulting provider notified?: Yes Primary care physician: Rohan Russell [facility] Course: Jose Alfredo Graham NP rendered care for this patient independently, reviewed the findings and plan as documented in the note above. I did not physically speak with or examine the patient on this date. Anticipate her chest pain is likely related to recent Covid 19 infection.
[2021-07-22 15:49] VITALS: BP 96/77; PULSE 72; RESP 18; TEMP 98.2
[2021-07-22] MEDS ORDERED: ESCITALOPRAM 20 MG TAB PO SCH (21:00)
[2021-07-23] MEDS ORDERED: ASPIRIN 81 MG PO SCH (09:00)
[2021-07-23] MEDS ORDERED: ASPIRIN 325 MG TAB PO SCH (09:00)
== END 2021-07-22 16:00 | disposition home or self-care (01) ==
LOC: EC 19:57 → 1SOBS 07-22 00:24 → 6NMEDSUR 07-22 13:14
PROVIDERS: ADMIT Internal Medicine; ATTEND Internal Medicine
DX: R07.89 Other chest pain (principal); R07.2 Precordial pain; R11.0 Nausea; J45.909 Unspecified asthma, uncomplicated; M79.89 Other specified soft tissue disorders; K21.9 Gastro-esophageal reflux disease without esophagitis; E78.5 Hyperlipidemia, unspecified; M19.90 Unspecified osteoarthritis, unspecified site; G43.909 Migraine, unspecified, not intractable, without status migrainosus; G89.29 Other chronic pain; M54.9 Dorsalgia, unspecified; K30 Functional dyspepsia; R60.0 Localized edema; F41.9 Anxiety disorder, unspecified; G47.33 Obstructive sleep apnea (adult) (pediatric); E66.9 Obesity, unspecified; Z68.41 Body mass index [BMI] 40.0-44.9, adult; Z79.899 Other long term (current) drug therapy; Z79.51 Long term (current) use of inhaled steroids; Z88.2 Allergy status to sulfonamides; Z86.14 Personal history of Methicillin resistant Staphylococcus aureus infection; Z86.16 Personal history of COVID-19; Z87.11 Personal history of peptic ulcer disease; Z90.49 Acquired absence of other specified parts of digestive tract; Z90.710 Acquired absence of both cervix and uterus; Z80.0 Family history of malignant neoplasm of digestive organs; Z82.49 Family history of ischemic heart disease and other diseases of the circulatory system
CPT/HCPCS: 96372; 99285; 36415; 94640; 93005; 93308; 93351; 85379; 80053; 83735; 84484 ×2; 85025; 85610; 85730; 71046; G0378 ×2; J1250; J1650; J0461; Q9950

== ENCOUNTER 2021-12-25 15:26 | Emergency (ER) | payer BC ==
--- NOTE | 2021-12-25 16:20 | ED ---
Lower Extremity Injury HPI - General Chief Complaint: Extremity Injury, Lower Stated Complaint: Right Leg infection, Knee injury Time Seen by Provider: 12/25/21 16:08 Source: patient Mode of arrival: ambulatory Limitations: no limitations - History of Present Illness Initial Comments: Patient is a 56-year-old female presenting with chief complaint of knee injury and laceration to the right lower leg. Patient states that yesterday she tripped while trying to guide her elderly father, this caused her to cut her lower leg on their wooden deck. Patient also states that she "twisted" the right knee. Patient states that she contacted her PCP today, they advised her to report to the ER for a dose of IV antibiotics, as patient states that she has had MRSA in the past and has a compromised immune system. Patient does admit to some swelling of the right knee. Patient denies any redness, discoloration, fever, chills, nausea, vomiting, numbness, tingling, weakness, loss of range of motion, red streaking, abdominal pain, chest pain, shortness of breath, palpitations. - Related Data Home Medications Medication Instructions Recorded Confirmed Omeprazole [PriLOSEC] 20 mg PO DAILY 06/11/15 07/21/21 Dicyclomine [Bentyl] 10 mg PO TID PRN 10/04/19 07/21/21 Escitalopram Oxalate [Lexapro] 20 mg PO HS 10/04/19 07/21/21 Albuterol Sulfate [Albuterol 2 puff PO RT-Q6H PRN 07/21/21 07/21/21 Sulfate Hfa] Beclomethasone Dipropionate [Qvar 2 puff INHALATION RT-DAILY 07/21/21 07/21/21 80mcg Redihaler] Cyclobenzaprine [Flexeril] 10 mg PO BID 07/21/21 07/21/21 Furosemide [Lasix] 20 mg PO BID 07/21/21 07/21/21 Gabapentin 600 mg PO BID 07/21/21 07/21/21 Galcanezumab-Gnlm [Emgality Pen] 120 mg SQ QMONTHLY 07/21/21 07/21/21 Rimegepant Sulfate [Nurtec Odt] 75 mg PO DAILY PRN 07/21/21 07/21/21 oxyCODONE HCL/ACETAMINOPHEN 1 tab PO Q6HR PRN 07/21/21 07/21/21 [Percocet 10-325 mg] Previous Rx's Medication Instructions Recorded Cephalexin [Keflex] 500 mg PO Q12HR 7 Days #14 cap 12/25/21 Allergies Allergy/AdvReac Type Severity Reaction Status Date / Time Sulfa (Sulfonamide Allergy Rash/Hives Verified 12/25/21 15:42 Antibiotics) Review of Systems ROS Statement: Those systems with pertinent positive or pertinent negative responses have been documented in the HPI. ROS Other: All systems not noted in ROS Statement are negative. 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 History of Any Multi-Drug Resistant Organisms: MRSA Date of last positivie culture/infection: 2017 MDRO Source:: breast, arm abdomen Past Surgical History: Back Surgery, Breast Surgery, Cholecystectomy, Hysterectomy, Orthopedic Surgery Additional Past Surgical History / Comment(s): abdominal plasty ,gastric stapling(1982), LEFT KNEE SURG X3., BREAST REDUCTION. Past Anesthesia/Blood Transfusion Reactions: Motion Sickness, Postoperative Nausea & Vomiting (PONV) Additional Past Anesthesia/Blood Transfusion Reaction / Comment(s): PTS MOTHER SEPTIC FROM BLOOD TRANSFUSION. Past Psychological History: Anxiety Smoking Status: Never smoker Past Alcohol Use History: None Reported Past Drug Use History: None Reported - Past Family History Father Family Medical History: Cancer Additional Family Medical History / Comment(s): ESOPHAGEAL CANCER Mother Family Medical History: Cancer Additional Family Medical History / Comment(s): PANCREATIC CANCER General Exam Limitations: no limitations General appearance: alert, in no apparent distress Head exam: Present: atraumatic, normocephalic, normal inspection Eye exam: Present: normal appearance, EOMI. Absent: scleral icterus, periorbital swelling Neck exam: Present: normal inspection Respiratory exam: Present: normal lung sounds bilaterally. Absent: respiratory distress, wheezes, rales, rhonchi, stridor Cardiovascular Exam: Present: regular rate, normal rhythm, normal heart sounds. Absent: systolic murmur, diastolic murmur, rubs, gallop, clicks Right Knee exam: Present: tenderness, swelling. Absent: full ROM Neurovascular tendon exam: Present: no vascular compromise. Absent: motor deficit, sensory deficit Neurological exam: Present: alert, oriented X3, CN II-XII intact Psychiatric exam: Present: normal affect, normal mood Skin exam: Present: warm, dry, normal color, abrasion. Absent: rash Course Vital Signs 12/25/21 12/25/21 15:37 18:09 Temperature 98.1 F 98.0 F Pulse Rate 86 76 Respiratory 20 16 Rate Blood Pressure 137/95 133/84 O2 Sat by Pulse 99 97 Oximetry Medical Decision Making - Medical Decision Making Patient is a 56-year-old female presenting for evaluation of right leg injury. Patient sustained a laceration to the right lower leg yesterday, as well as injured her knee. Patient informed her PCP of this who encouraged her to report to the ER for antibiotics. On examination there is tenderness to palpation, she has limited range of motion secondary to pain. Patient states it is painful to bear weight. Laceration appears clean, no redness or swelling or discharge. X-ray shows no acute fracture or dislocation. Patient is placed in a knee immobilizer and instructed to follow-up with her orthopedist. Wound was irrigated with 1 L sterile water. Patient is placed on Keflex. Instructed to follow-up with PCP on Tuesday. Report back to ER if any new or worsening symptoms. Discussed return parameters answered all questions. Patient conveyed verbal understanding and agreed to the plan. I discussed this case with my attending Dr. Bess Disposition Clinical Impression: Leg laceration, Knee sprain Disposition: HOME SELF-CARE Condition: Good Instructions (If sedation given, give patient instructions): Knee Sprain (ED), Laceration Without Closure (ED) Additional Instructions: Follow-up with PCP and your orthopedist on Tuesday. Report back to ER with any new or worsening symptoms. Take Motrin and Tylenol as needed for pain control. Take medication as prescribed. Rest, ice, compress, elevate the knee for medical management. Watch for signs of infection to laceration on the lower leg. Prescriptions: Cephalexin [Keflex] 500 mg PO Q12HR 7 Days #14 cap Is patient prescribed a controlled substance at d/c from ED?: No Referrals: Rohan Russell DO [Primary Care Provider] - 1-2 days Time of Disposition: 17:41
--- NOTE | 2021-12-25 17:04 | XR ---
EXAMINATION TYPE: XR knee complete RT DATE OF EXAM: 12/25/2021 COMPARISON: None HISTORY: Knee pain TECHNIQUE: 3 views FINDINGS: There is no evidence of fracture nor dislocation. There is mild spurring of the lateral tib ial condyle. No significant joint space narrowing. There is small knee joint effusion. IMPRESSION: Small joint effusion. No fracture seen.
[2021-12-25] MEDS ORDERED: oxyCODONE-APAP 7.5-325MG 1 EACH TAB PO STA (17:06)
[2021-12-25 18:10] VITALS: BP 133/84; PULSE 76; RESP 16; TEMP 98
== END 2021-12-25 18:10 | disposition home or self-care (01) ==
LOC: EC 15:26
DX: S81.812A Laceration without foreign body, left lower leg, initial encounter (principal); S83.92XA Sprain of unspecified site of left knee, initial encounter; J45.909 Unspecified asthma, uncomplicated; K21.9 Gastro-esophageal reflux disease without esophagitis; E78.5 Hyperlipidemia, unspecified; Z88.2 Allergy status to sulfonamides; Z79.83 Long term (current) use of bisphosphonates; W26.0XXA Contact with knife, initial encounter
CPT/HCPCS: 73562; 99283; L1830 ×2

== ENCOUNTER → 2022-01-15 | Outpatient (CLI) | payer BC ==
--- NOTE | 2022-01-15 21:15 | US ---
EXAMINATION TYPE: US thyroid st tissue head/neck DATE OF EXAM: 01/15/2022 COMPARISON: US 2020 CLINICAL HISTORY: E04.2 GOITER. Thyroid nodules GLAND SIZE: Right Lobe: 4.2 x 1.2 x 1.4 cm Overall Parenchyma: homogenous Left Lobe: 4.2 x 1.3 x 1.3 cm Overall Parenchyma: homogeneous Isthmus Thickness: 0.3 cm NODULES RIGHT: # of nodules measured on right: 2 1. 0.7 X 0.4 x 0.5 cm, lower medial, cystic or almost completely cystic, anechoic nodule, which is wider than tall, with smooth margins, without echogenic foci. Prior size: 0.5 x 0.3 x 0.5 cm TIRADS Score: 0 TIRADS Category 1: Benign Composition: Cystic or almost completely cystic (0 points). Recommendation: No FNA 2. 0.9 X 0.6 x 0.8 cm, lower mid, solid or almost completely solid, hypoechoic nodule, which is wid er than tall, with smooth margins, without echogenic foci. Prior size: 0.7 x 0.5 x 0.8 cm TIRADS Score: 4 TIRADS Category 4: Moderately Suspicious Composition: Solid or almost completely solid (2 points). Echogenicity: Hypoechoic (2 points). Shape: Wider than tall (0 points). Margin: Smooth (0 points). Echogenic foci: None or large comet-tail artifacts (0 points) Recommendation: If >1.5cm: FNA; If >1cm: Follow up at 1,3,5 years LEFT: # of nodules measured on left: 0 ISTHMUS: # of nodules measured in the isthmus: 0 Bilateral neck scanned, no evidence of lymphadenopathy. IMPRESSION: Findings and impression as described above. 2017 ACR TI-RADS LEVEL: *Highest TI-RADS level nodule reported
== END | disposition home or self-care (01) ==
LOC: RADUSWWP 15:43
PROVIDERS: ATTEND Family Medicine
DX: E04.2 Nontoxic multinodular goiter (principal)
CPT/HCPCS: 76536; 77063; 77067

== ENCOUNTER → 2022-05-10 | Outpatient (CLI) | payer BC ==
--- NOTE | 2022-05-10 22:14 | MR ---
EXAMINATION TYPE: MR knee RT wo con DATE OF EXAM: 05/10/2022 COMPARISON: Right knee MRI April 21, 2015. Outside right knee x-ray March 03, 2022 HISTORY: Right knee and her pain and swelling, injured December 2021. TECHNIQUE: Multiplanar, multisequence images of the knee is performed without IV contrast. FINDINGS: Exam suboptimal as patient unable to hold still. MEDIAL MENISCUS: Anterior horn remains intact without tear. Subtle horizontal increased signal supervisor wheel shop ior horn does not extend to articular surface as well seen as prior. LATERAL MENISCUS: Flight signal posterior horn current study extends to the inferior articular surfac e sagittal image 27. CRUCIATE LIGAMENTS: The anterior and posterior cruciate ligaments are intact and unremarkable. COLLATERAL LIGAMENTS: The medial collateral ligament and lateral collateral ligament complex are inta ct and unremarkable. EXTENSOR MECHANISM: Visualized quadriceps and patellar tendons are intact. EFFUSION: Small size suprapatellar joint effusion similar to prior. POPLITEAL CYST: Small size popliteal/chavez cyst similar to prior. TRICOMPARTMENT SPACES: Greatest tracking from the joint space loss now moderate to severe patellofemo ral level from prior study. [id number] tricompartment spurring progressed from prior CARTILAGE: Chondromalacia patella with thinning of articular cartilage along the posterior patellar p ole. Cartilaginous loss medial tibiofemoral compartment. BONE MARROW SIGNAL: No focal abnormal marrow signal is appreciated. OTHER: No additional significant abnormality is appreciated. IMPRESSION: 1. Interval progression of meniscal tear posterior horn lateral meniscus with full thickness tear now seen. 2. Tricompartment degenerative changes showing interval degenerative progression from 2015 study with findings moderate to severe at patellofemoral compartment noted as detailed above. 3. Stable small suprapatellar joint effusion. Stable small sized popliteal cyst.
== END | disposition home or self-care (01) ==
LOC: RADMRIMAIN 20:00
PROVIDERS: ATTEND Orthopaedic Surgery
DX: S83.281A Other tear of lateral meniscus, current injury, right knee, initial encounter (principal); M17.11 Unilateral primary osteoarthritis, right knee; M71.21 Synovial cyst of popliteal space [Baker], right knee; M25.461 Effusion, right knee

== ENCOUNTER → 2022-06-03 | Outpatient (CLI) | payer BC ==
--- NOTE | 2022-06-03 15:27 | US ---
EXAMINATION TYPE: US abdomen APPY DATE OF EXAM: 06/03/2022 COMPARISON: NONE CLINICAL HISTORY: 57-year-old female K38.9 APPENDICITIS. rlq pain TECHNIQUE: Multiple sonographic images of the right lower quadrant were obtained with graded compress ion. FINDINGS: APPENDIX Is the appendix seen in its entirety from the proximal cecum to distal end: no Is the appendix compressible: yes Does the appendix wall appear hypervascular: no Is an appendicolith present: no Is there inflammatory changes or free fluid present: no GAS JOCKEY NOTES: Appendix is not seen in its entirety. Scattered lymph nodes are present in the rig ht lower quadrant measuring up to 2.3 x .5 x .8 cm. IMPRESSION: Scattered mesenteric lymph nodes noted in the right lower quadrant, some of which are borderline in i n size, probably reactive/post inflammatory. Short interval follow-up to exclude pathologic lymphaden opathy. Unable to identify the appendix along its entire course. Further clinical correlation will be needed for any suspected acute appendicitis.
== END | disposition home or self-care (01) ==
LOC: RADUSWWP 09:40
PROVIDERS: ATTEND Psychiatry & Neurology Neurology
DX: K38.9 Disease of appendix, unspecified (principal)
CPT/HCPCS: 76705

== ENCOUNTER → 2022-06-11 | Outpatient (CLI) | payer BC ==
[2022-06-11 15:21] LABS: Basophils # (A) 0.1 k/uL (0-0.2); Basophils % (A) 1 %; Eosinophils # (A) 0.3 k/uL (0-0.7); Eosinophils % (A) 2 %; HCT 46.4 % (34.0-46.0); HGB 14.6 gm/dL (11.4-16.0); Lymphocytes # (A) 2.1 k/uL (1.0-4.8); Lymphocytes % (A) 14 %; MCH 27.6 pg (25.0-35.0); MCHC 31.6 g/dL (31.0-37.0); MCV 87.5 fL (80.0-100.0); Mean Platelet Volume 7.9; Monocytes # (A) 0.7 k/uL (0-1.0); Monocytes % (A) 4 %; Neutrophils # (A) 12.3 k/uL (1.3-7.7); Neutrophils % (A) 79 %; Platelet Count 372 k/uL (150-450); RDW 13.9 % (11.5-15.5); WBC 15.6 k/uL (3.8-10.6)
[2022-06-11 15:37] LABS: ALT 19 U/L (4-34); AST 22 U/L (14-36); African American GFR (CKD) 88 (>60 ml/min/1.73 sqM); Albumin 4.5 g/dL (3.5-5.0); Albumin/Globulin Ratio 1.4; Alkaline Phosphatase 61 U/L (38-126); Anion Gap 6 mmol/L; Blood Urea Nitrogen 12 mg/dL (7-17); Calcium 9.5 mg/dL (8.4-10.2); Carbon Dioxide 30 mmol/L (22-30); Chloride 104 mmol/L (98-107); Globulin 3.2 g/dL; Glucose 98 mg/dL (74-99); Non-African American GFR(CKD) 77 (>60 ml/min/1.73 sqM); Potassium 4.8 mmol/L (3.5-5.1); Sodium 140 mmol/L (137-145); Total Bilirubin 0.6 mg/dL (0.2-1.3); Total Protein 7.7 g/dL (6.3-8.2)
--- NOTE | 2022-06-11 16:49 | CT ---
EXAMINATION TYPE: CT abdomen pelvis w con DATE OF EXAM: 06/11/2022 COMPARISON: 04/24/2018 HISTORY: RLQ pain CT DLP: 1719 mGycm Automated exposure control for dose reduction was used. CONTRAST: Performed with IV Contrast, patient injected with 70cc mL of Isovue 300. Images obtained from the diaphragm to the floor the pelvis with the oral and IV contrast. There is some mild atelectasis left posterior lung base. Heart size is normal. No pericardial effusio n. No pleural effusion. There is some mild fatty infiltration of the liver. Spleen is intact. No panc reatic mass. There is deformity of the stomach consistent with gastric bariatric surgery. The bile du cts are not dilated. Gallbladder appears absent. There is no adrenal mass. Kidneys show satisfactory contrast opacification. No hydronephrosis. Ureter s are not dilated. There is no retroperitoneal adenopathy. There is normal contrast opacification of the small bowel. No bowel obstruction. No mesenteric edema. No ascites or free air. Appendix is posterior and appears normal. The bladder distends smoothly. No inguinal hernia. There is hysterectomy. No free fluid in the pelvis. No pelvic mass. The lumbar verte brae have normal alignment. There is degenerative disc space narrowing at L4-5 and L5-S1 with spurrin g and vacuum disc. No compression fracture. The bony pelvis is intact. The hip joints are intact. IMPRESSION: Previous surgery. Mild atelectasis left posterior lung base. Mild fatty infiltration of the liver. No dilated ducts. No bowel obstruction. No adverse change compared to the old exam.
== END | disposition home or self-care (01) ==
LOC: RADCTMAIN 14:30
PROVIDERS: ATTEND Family Medicine
DX: K76.0 Fatty (change of) liver, not elsewhere classified (principal); J98.11 Atelectasis; R10.31 Right lower quadrant pain
CPT/HCPCS: 80053; 85025; 74177; 36415; Q9967

== ENCOUNTER 2022-11-29 15:09 | Emergency (ER) | payer BC, MEDICARE ==
[2022-11-29 15:23] VITALS: RESP 18
[2022-11-29 17:58] LABS: Basophils # (A) 0.1 k/uL (0-0.2); Basophils % (A) 1 %; Eosinophils # (A) 0.4 k/uL (0-0.7); Eosinophils % (A) 4 %; HCT 45.6 % (34.0-46.0); HGB 14.7 gm/dL (11.4-16.0); Lymphocytes # (A) 2.4 k/uL (1.0-4.8); Lymphocytes % (A) 26 %; MCH 28.6 pg (25.0-35.0); MCHC 32.3 g/dL (31.0-37.0); MCV 88.5 fL (80.0-100.0); Mean Platelet Volume 7.9; Monocytes # (A) 0.4 k/uL (0-1.0); Monocytes % (A) 4 %; Neutrophils % (A) 64 %; Platelet Count 364 k/uL (150-450); RBC 5.15 m/uL (3.80-5.40); RDW 13.9 % (11.5-15.5); WBC 9.4 k/uL (3.8-10.6)
[2022-11-29 19:35] LABS: ALT 24 U/L (4-34); AST 25 U/L (14-36); African American GFR (CKD) >90 (>60 ml/min/1.73 sqM); Albumin 4.4 g/dL (3.5-5.0); Alkaline Phosphatase 64 U/L (38-126); Anion Gap 10 mmol/L; Blood Urea Nitrogen 14 mg/dL (7-17); C Reactive Protein 0.5 mg/dL (<1.0); Calcium 9.5 mg/dL (8.4-10.2); Carbon Dioxide 26 mmol/L (22-30); Chloride 101 mmol/L (98-107); Glucose 93 mg/dL (74-99); Non-African American GFR(CKD) 80 (>60 ml/min/1.73 sqM); Potassium 4.2 mmol/L (3.5-5.1); Sodium 137 mmol/L (137-145); Total Bilirubin 0.5 mg/dL (0.2-1.3); Total Protein 7.7 g/dL (6.3-8.2)
[2022-11-29] MEDS ORDERED: VANCOMYCIN 1,000 MG in SODIUM CHLORIDE 0.9% 250 ML IVPB STA (20:10)
[2022-11-29] MEDS ORDERED: VANCOMYCIN 1,500 MG in SODIUM CHLORIDE 0.9% 500 ML 500 ML IVPB STA (20:13)
[2022-11-29] MEDS ORDERED: KETOROLAC 15 MG/ML 1 ML VIAL IVP STA (20:19)
--- NOTE | 2022-11-29 20:28 | ED ---
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 Patient states days ago was cooking and had a splash back of oil land onto her abdomen. Since then has had 2 open wounds on her abdomen. States has been changing her bandages daily however notes today when changing her bandage noticed green drainage around her wounds. Denies fever. No other complaints. - Related Data Home Medications Medication Instructions Recorded Confirmed Omeprazole [PriLOSEC] 20 mg PO DAILY 06/11/15 07/21/21 Dicyclomine [Bentyl] 10 mg PO TID PRN 10/04/19 07/21/21 Escitalopram Oxalate [Lexapro] 20 mg PO HS 10/04/19 07/21/21 Albuterol Sulfate [Albuterol 2 puff PO RT-Q6H PRN 07/21/21 07/21/21 Sulfate Hfa] Beclomethasone Dipropionate [Qvar 2 puff INHALATION RT-DAILY 07/21/21 07/21/21 80mcg Redihaler] Cyclobenzaprine [Flexeril] 10 mg PO BID 07/21/21 07/21/21 Furosemide [Lasix] 20 mg PO BID 07/21/21 07/21/21 Gabapentin 600 mg PO BID 07/21/21 07/21/21 Galcanezumab-Gnlm [Emgality Pen] 120 mg SQ QMONTHLY 07/21/21 07/21/21 Rimegepant Sulfate [Nurtec Odt] 75 mg PO DAILY PRN 07/21/21 07/21/21 oxyCODONE HCL/ACETAMINOPHEN 1 tab PO Q6HR PRN 07/21/21 07/21/21 [Percocet 10-325 mg] Previous Rx's Medication Instructions Recorded Cephalexin [Keflex] 500 mg PO Q12HR 7 Days #14 cap 12/25/21 Clindamycin [Cleocin] 450 mg PO TID 7 Days #21 cap 11/29/22 Allergies Allergy/AdvReac Type Severity Reaction Status Date / Time Sulfa (Sulfonamide Allergy Rash/Hives Verified 11/29/22 15:23 Antibiotics) Review of Systems ROS Statement: Those systems with pertinent positive or pertinent negative responses have been documented in the HPI. ROS Other: All systems not noted in ROS Statement are negative. 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 History of Any Multi-Drug Resistant Organisms: MRSA Date of last positivie culture/infection: 2017 MDRO Source:: breast, arm abdomen Past Surgical History: Back Surgery, Breast Surgery, Cholecystectomy, Hyste rectomy, Orthopedic Surgery Additional Past Surgical History / Comment(s): abdominal plasty ,gastric stapling(1982), LEFT KNEE SURG X3., BREAST REDUCTION. Past Anesthesia/Blood Transfusion Reactions: Motion Sickness, Postoperative Nausea & Vomiting (PONV) Additional Past Anesthesia/Blood Transfusion Reaction / Comment(s): PTS MOTHER SEPTIC FROM BLOOD TRANSFUSION. Past Psychological History: Anxiety Smoking Status: Never smoker Past Alcohol Use History: None Reported Past Drug Use History: None Reported - Past Family History Father Family Medical History: Cancer Additional Family Medical History / Comment(s): ESOPHAGEAL CANCER Mother Family Medical History: Cancer Additional Family Medical History / Comment(s): PANCREATIC CANCER General Exam Limitations: no limitations Eye exam: Present: normal appearance Respiratory exam: Present: wheezes (In bilateral lung shrestha) Cardiovascular Exam: Present: regular rate, normal rhythm GI/Abdominal exam: Present: soft Neurological exam: Present: alert, oriented X3 Skin exam: Present: other (2 small wounds on the right lower abdomen one wound approximately 3 x 3 cm in diameter circular other wound approximately 2 x 3 cm in diameter irregularly shaped. Animal green drainage. No difficulty and surrounding warmth or erythema or tenderness to palpation.) Course Vital Signs 11/29/22 11/29/22 15:21 20:06 Temperature 98.7 F Pulse Rate 79 73 Respiratory 18 18 Rate Blood Pressure 126/89 126/83 O2 Sat by Pulse 99 99 Oximetry Medical Decision Making - Medical Decision Making Was pt. sent in by a medical professional or institution (, PA, LINOTYPE OPERATOR, urgent care, hospital, or correction...) When possible be specific @ -No Did you speak to anyone other than the patient for history (EMS, parent, family, police, friend...)? What history was obtained from this source @ -No Did you review nursing and triage notes (agree or disagree)? Why? @ -I reviewed and agree with nursing and triage notes Were old charts reviewed (outside hosp., previous admission, EMS record, old EKG, old radiological studies, urgent care reports/EKG's, correction records)? Report findings @ -No old charts were reviewed Differential Diagnosis (chest pain, altered mental status, abdominal pain women, abdominal pain men, vaginal bleeding, weakness, fever, dyspnea, syncope, headache, dizziness, GI bleed, back pain, seizure, CVA, palpatations, mental health, musculoskeletal)? @ -MRSA, cellulitis. This is not meant to be an all-inclusive list. EKG interpreted by me (3pts min.). @ -None X-rays interpreted by me (1pt min.). @ -None done CT interpreted by me (1pt min.). @ -None done U/S interpreted by me (1pt. min.). @ -None done What testing was considered but not performed or refused? (CT, X-rays, U/S, labs)? Why? @ -None What meds were considered but not given or refused? Why? @ -None Did you discuss the management of the patient with other professionals (professionals i.e. , PA, LINOTYPE OPERATOR, lab, RT, psych nurse, social sciences lecturer, art manager, teacher, assurance officer, patient case manager)? Give summary @ -No Was smoking cessation discussed for >3mins.? @ -No Was critical care preformed (if so, how long)? @ -No Were there social determinants of health that impacted care today? How? (Homelessness, low income, unemployed, alcoholism, drug addiction, transportation, low edu. Level, literacy, decrease access to med. care, detention, rehab)? @ -No Was there de-escalation of care discussed even if they declined (Discuss DNR or withdrawal of care, Hospice)? DNR status @ -No What co-morbidities impacted this encounter? (DM, HTN, Smoking, COPD, CAD, Cancer, CVA, ARF, Chemo, Hep., AIDS, mental health diagnosis, sleep apnea, morbid obesity)? @ -None Was patient admitted / discharged? Hospital course, mention meds given and route, prescriptions, significant lab abnormalities, going to OR and other pe rtinent info. @ -Discharge. Wound shows no significant evidence of infection however with documented history of MRSA started on IV antibiotics here. Will be discharged home with prescription for clindamycin 450 mg 3 times a day for 7 days. Wound evaluated by Dr. Simon, was in agreement. Discussed return precautions with patient who verbalizes agreement. Undiagnosed new problem with uncertain prognosis? @ -No Drug Therapy requiring intensive monitoring for toxicity (Heparin, Nitro, Insulin, Cardizem)? @ -No Were any procedures done? @ -No Diagnosis/symptom? @ -Abdominal wound Acute, or Chronic, or Acute on Chronic? @ -Acute on chronic Uncomplicated (without systemic symptoms) or Complicated (systemic symptoms)? @ -Uncomplicated Side effects of treatment? @ -No Exacerbation, Progression, or Severe Exacerbation? @ -No Poses a threat to life or bodily function? How? (Chest pain, [place], GA, pneumonia, PE, COPD, DKA, ARF, appy, cholecystitis, CVA, Diverticulitis, Homicidal, Suicidal, threat to staff... and all critical care pts) @ -No - Lab Data Result diagrams: 11/29/22 17:18 11/29/22 17:18 Lab Results 11/29/22 11/29/22 Range/Units 17:18 17:18 WBC 9.4 (3.8-10.6) k/uL RBC 5.15 (3.80-5.40) m/uL Hgb 14.7 (11.4-16.0) gm/dL Hct 45.6 (34.0-46.0) % MCV 88.5 (80.0-100.0) fL MCH 28.6 (25.0-35.0) pg MCHC 32.3 (31.0-37.0) g/dL RDW 13.9 (11.5-15.5) % Plt Count 364 (150-450) k/uL MPV 7.9 Neutrophils % 64 % Lymphocytes % 26 % Monocytes % 4 % Eosinophils % 4 % Basophils % 1 % Neutrophils # 6.0 (1.3-7.7) k/uL Lymphocytes # 2.4 (1.0-4.8) k/uL Monocytes # 0.4 (0-1.0) k/uL Eosinophils # 0.4 (0-0.7) k/uL Basophils # 0.1 (0-0.2) k/uL Sodium 137 (137-145) mmol/L Potassium 4.2 (3.5-5.1) mmol/L Chloride 101 (98-107) mmol/L Carbon Dioxide 26 (22-30) mmol/L Anion Gap 10 mmol/L BUN 14 (7-17) mg/dL Creatinine 0.82 (0.52-1.04) mg/dL Est GFR (CKD-EPI)AfAm >90 (>60 ml/min/1.73 sqM) Est GFR (CKD-EPI)NonAf 80 (>60 ml/min/1.73 sqM) Glucose 93 (74-99) mg/dL Calcium 9.5 (8.4-10.2) mg/dL Total Bilirubin 0.5 (0.2-1.3) mg/dL AST 25 (14-36) U/L ALT 24 (4-34) U/L Alkaline Phosphatase 64 (38-126) U/L C-Reactive Protein 0.5 (<1.0) mg/dL Total Protein 7.7 (6.3-8.2) g/dL Albumin 4.4 (3.5-5.0) g/dL Disposition Clinical Impression: Wound cellulitis Disposition: HOME SELF-CARE Condition: Good Instructions (If sedation given, give patient instructions): MRSA (Methicillin- Resistant Staphylococcus Aureus) (ED), Wound Infection (ED) Additional Instructions: Please return to the Emergency Department if symptoms worsen or any other concerns. Prescriptions: Clindamycin [Cleocin] 450 mg PO TID 7 Days #21 cap Is patient prescribed a controlled substance at d/c from ED?: No Referrals: Rohan Russell DO [Primary Care Provider] - 1-2 days Time of Disposition: 20:15
[2022-11-29] MEDS ORDERED: ACETAMINOPHEN TAB 500 MG TAB PO STA (20:32)
[2022-11-29 21:40] VITALS: BP 98/65; PULSE 75; TEMP 98.6
== END 2022-11-29 21:40 | disposition home or self-care (01) ==
LOC: EC 15:09
DX: Z86.14 Personal history of Methicillin resistant Staphylococcus aureus infection (principal); L03.311 Cellulitis of abdominal wall; J45.909 Unspecified asthma, uncomplicated; E11.9 Type 2 diabetes mellitus without complications; K21.9 Gastro-esophageal reflux disease without esophagitis; M19.90 Unspecified osteoarthritis, unspecified site; G47.30 Sleep apnea, unspecified; F41.9 Anxiety disorder, unspecified; Z79.1 Long term (current) use of non-steroidal anti-inflammatories (NSAID); Z79.899 Other long term (current) drug therapy; Z88.2 Allergy status to sulfonamides
CPT/HCPCS: 36415; 80053; 85025; 86140; 87070; 87205; 99284; 96365; J3370

== ENCOUNTER → 2023-03-15 | Outpatient (CLI) | payer MEDICARE ==
--- NOTE | 2023-03-15 10:40 | US ---
EXAMINATION TYPE: US thyroid st tissue head/neck DATE OF EXAM: 03/15/2023 COMPARISON: US 01/15/2022 CLINICAL INDICATION: Female, 58 years old with history of E04.1 NONTOXIC SINGLE THYROID NODULE; Nodul e. GLAND SIZE: Right Lobe: 4.5 x 1.1 x 1.9 cm Overall Parenchyma: homogenous Left Lobe: 4.3 x 1.3 x 1.6 cm Overall Parenchyma: homogeneous Isthmus Thickness: 0.26 cm NODULES RIGHT: # of nodules measured on right: 2 1. 0.8 X 0.7 x 0.5 cm, lower medial, cystic or almost completely cystic, anechoic nodule, which is wider than tall, with smooth margins, without echogenic foci. Prior size: 0.7 x 0.4 x 0.5 cm 2. 1.2 X 1.0 x 0.8 cm, lower mid, solid or almost completely solid, hypoechoic nodule, which is wid er than tall, with smooth margins, without echogenic foci. Prior size: 0.9 x 0.6 x 0.8 cm LEFT: # of nodules measured on left: 0 ISTHMUS: # of nodules measured in the isthmus: 0 Bilateral neck scanned, no evidence of lymphadenopathy. IMPRESSION: TR3 lesion Mildly Suspicious: FNA if ? 2.5 cm; Follow if ? 1.5 cm at 1, 3, and 5 y
== END | disposition home or self-care (01) ==
LOC: RADUSWWP 10:07
PROVIDERS: ATTEND Family Medicine
DX: E04.1 Nontoxic single thyroid nodule (principal)
CPT/HCPCS: 76536

== ENCOUNTER 2023-08-12 08:25 | Emergency (ER) | payer MEDICARE ==
[2023-08-12 08:45] LABS: Glucose,Whole Blood 139 mg/dL (70-110)
[2023-08-12 08:55] VITALS: TEMP 97.4
[2023-08-12] MEDS: SODIUM CHLORIDE 0.9% 1,000 ML IV STA (09:37)
[2023-08-12] MEDS: NITROGLYCERIN SL TABS 0.4 MG TAB SUBLINGUAL STA (09:38)
--- NOTE | 2023-08-12 09:42 | ED ---
General Adult HPI - General Chief complaint: Chest Pain Stated complaint: Chest Pains Time Seen by Provider: 08/12/23 08:40 Source: patient, RN notes reviewed, old records reviewed Mode of arrival: wheelchair - History of Present Illness Initial comments: Patient is a 58-year-old female who presents emergency department for chest pain. Began at 2 AM. Describes the pain as a sharp, achy sensation that radiates from her mid back around her ribs to the front of her right chest. Worse with deep inspiration. 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 Denies any sensory deficits. States she has experienced this pain previously but not to this extent. Presents for further evaluation. Denies any cardiac history. Patient does have a history of diabetes, asthma, hyperlipidemia. - Related Data Home Medications Medication Instructions Recorded Confirmed Omeprazole [PriLOSEC] 20 mg PO DAILY 06/11/15 08/12/23 Escitalopram Oxalate [Lexapro] 20 mg PO HS 10/04/19 08/12/23 Albuterol Sulfate [Albuterol 2 puff PO RT-Q6H PRN 07/21/21 08/12/23 Sulfate Hfa] Cyclobenzaprine [Flexeril] 10 mg PO BID PRN 07/21/21 08/12/23 Furosemide [Lasix] 20 mg PO DAILY 07/21/21 08/12/23 Gabapentin 600 mg PO BID 07/21/21 08/12/23 Rimegepant Sulfate [Nurtec Odt] 75 mg PO DAILY PRN 07/21/21 08/12/23 oxyCODONE HCL/ACETAMINOPHEN 1 tab PO Q6HR PRN 07/21/21 08/12/23 [Percocet 10-325 mg] Budesonide/Formoterol Fumarate 2 puff INHALATION RT-DAILY 08/12/23 08/12/23 [Symbicort 160-4.5 Mcg Inhaler] Fluconazole [Diflucan] 200 mg PO DAILY PRN 08/12/23 08/12/23 Ketoconazole 2% Cream [Nizoral 2%] 1 applic TOPICAL DAILY PRN 08/12/23 08/12/23 Ketoconazole 2% Shampoo [Nizoral] 1 applic TOPICAL DAILY PRN 08/12/23 08/12/23 Mupirocin 2% Oint [Bactroban 2% 1 applic TOPICAL DAILY 08/12/23 08/12/23 Oint] Previous Rx's Medication Instructions Recorded Cyclobenzaprine [Flexeril] 5 mg PO BID PRN 7 Days #14 tab 08/12/23 Lidocaine 5% Patch [Lidoderm 5% 1 patch TOPICAL DAILY PRN 14 Days 08/12/23 Patch] #14 patch Allergies Allergy/AdvReac Type Severity Reaction Status Date / Time Sulfa (Sulfonamide Allergy see comment Verified 08/12/23 10:44 Antibiotics) Review of Systems ROS Statement: Those systems with pertinent positive or pertinent negative responses have been documented in the HPI. Review of Systems: CONST: Denies fever EYES: Denies blurry vision ENT: Denies nasal congestion C/V: Endorses chest wall pain RESP: Denies shortness of breath GI: Denies abdominal pain : Denies dysuria SKIN: Denies rash. MSK: Denies joint pain. NEURO: Denies headache ROS Other: All systems not noted in ROS Statement are negative. 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 History of Any Multi-Drug Resistant Organisms: MRSA Date of last positivie culture/infection: 2017 MDRO Source:: breast, arm abdomen Past Surgical History: Back Surgery, Breast Surgery, Cholecystectomy, Hysterectomy, Orthopedic Surgery Additional Past Surgical History / Comment(s): abdominal plasty ,gastric stapling(1982), LEFT KNEE SURG X3., BREAST REDUCTION. sx right leg- for skin ca Past Anesthesia/Blood Transfusion Reactions: Motion Sickness, Postoperative Zackary sea & Vomiting (PONV) Additional Past Anesthesia/Blood Transfusion Reaction / Comment(s): PTS MOTHER SEPTIC FROM BLOOD TRANSFUSION. Past Psychological History: Anxiety Smoking Status: Never smoker Past Alcohol Use History: None Reported Past Drug Use History: None Reported - Past Family History Father Family Medical History: Cancer Additional Family Medical History / Comment(s): ESOPHAGEAL CANCER Mother Family Medical History: Cancer Additional Family Medical History / Comment(s): PANCREATIC CANCER General Exam - General Exam Comments Initial Comments: General: Appears in mild distress secondary to chest wall pain. HEAD: Normal with no signs of head trauma. EYES: PERRLA, EOMI, conjunctiva normal, no discharge. ENT: Hearing grossly intact, normal oropharynx. RESPIRATORY: Clear breath sounds bilaterally. No wheezes, rales, or rhonchi. C/V: Regular rate and rhythm. S1 and S2 auscultated, peripheral pulses 2+ and intact throughout. Patient does have some chest wall pain on the right that radiates along the thoracic level mid rib spaces from the back to the front. ABD: Abd is soft, nontender, nondistended EXT: Mild midline thoracic spinal tenderness to palpation. No step-offs or deformities palpated. Tender to palpation over the right ribs as well and with certain movements. SKIN: No rashes or lesions observed on exposed skin. NEURO: Alert and oriented x 4. No focal sensory or strength deficits. Course Vital Signs 08/12/23 08/12/23 08/12/23 08:26 08:33 08:36 Temperature 97.4 F L Pulse Rate 84 80 Pulse Rate [ 81 Watch Electrician ] Respiratory 24 18 Rate Blood Pressure 131/83 135/98 O2 Sat by Pulse 98 98 Oximetry 08/12/23 08/12/23 08/12/23 08:45 09:00 09:15 Temperature Pulse Rate 82 78 76 Pulse Rate [ Watch Electrician ] Respiratory 18 20 22 Rate Blood Pressure 135/98 107/93 116/73 O2 Sat by Pulse 100 98 96 Oximetry 08/12/23 08/12/23 08/12/23 09:23 09:30 09:36 Temperature Pulse Rate 78 80 74 Pulse Rate [ 78 Watch Electrician ] Respiratory 18 20 18 Rate Blood Pressure 117/77 117/77 132/81 O2 Sat by Pulse 96 97 97 Oximetry 08/12/23 08/12/23 08/12/23 09:45 10:00 10:01 Temperature Pulse Rate 86 72 72 Pulse Rate [ Watch Electrician ] Respiratory 22 41 H 18 Rate Blood Pressure 132/81 123/66 96/57 O2 Sat by Pulse 91 L 96 97 Oximetry 08/12/23 08/12/23 08/12/23 10:15 10:30 10:45 Temperature Pulse Rate 71 70 68 Pulse Rate [ Watch Electrician ] Respiratory 14 22 20 Rate Blood Pressure 96/57 99/63 110/70 O2 Sat by Pulse 95 98 97 Oximetry 08/12/23 08/12/23 08/12/23 11:00 11:15 11:30 Temperature Pulse Rate 74 73 69 Pulse Rate [ Watch Electrician ] Respiratory 20 22 22 Rate Blood Pressure 85/66 121/68 121/68 O2 Sat by Pulse 96 98 97 Oximetry 08/12/23 08/12/23 11:45 12:00 Temperature Pulse Rate 69 73 Pulse Rate [ Watch Electrician ] Respiratory 20 22 Rate Blood Pressure 109/73 114/77 O2 Sat by Pulse 97 Oximetry Medical Decision Making - Medical Decision Making Was pt. sent in by a medical professional or institution (, PA, DIAGNOSTIC RADIOLOGIST, urgent care, hospital, or long-term...) When possible be specific @ -No Did you speak to anyone other than the patient for history (EMS, parent, family, police, friend...)? What history was obtained from this source @ -No Did you review nursing and triage notes (agree or disagree)? Why? @ -I reviewed and agree with nursing and triage notes Were old charts reviewed (outside hosp., previous admission, EMS record, old EKG, old radiological studies, urgent care reports/EKG's, long-term records)? Report findings @ -Old charts reviewed Differential Diagnosis (chest pain, altered mental status, abdominal pain women, abdominal pain men, vaginal bleeding, weakness, fever, dyspnea, syncope, headache, dizziness, GI bleed, back pain, seizure, CVA, palpatations, mental health, musculoskeletal)? @ -Differential Chest Pain: Stable Angina, Unstable Angina, STEMI, NSTEMI Aortic Dissection, Pneumothorax, Musculoskeletal, Esophageal Spasm GERD, Cholecystitis, Pancreatitis, Zoster, this is not meant to be an all-inclusive list. EKG interpreted by me (3pts min.). @ -As above X-rays interpreted by me (1pt min.). @ -Chest x-ray reveals no obvious acute cardiopulmonary process. CT interpreted by me (1pt min.). @ -CT of the chest abdomen pelvis evaluate the aorta negative for any obvious aortic injury or dissection. CT of the thoracic spine shows degenerative changes. Patient does have what appears to be a possible abdominal wall enlarged lymph node but no other findings. U/S interpreted by me (1pt. min.). @ -None done What testing was considered but not performed or refused? (CT, X-rays, U/S, labs)? Why? @ -None What meds were considered but not given or refused? Why? @ -None Did you discuss the management of the patient with other professionals (professionals i.e. , PA, DIAGNOSTIC RADIOLOGIST, lab, RT, psych nurse, social worker clinical, counter stitcher, teacher, administrative services officer, case reviewer)? Give summary @ -No Was smoking cessation discussed for >3mins.? @ -No Was critical care preformed (if so, how long)? @ -No Were there social determinants of health that impacted care today? How? (Homelessness, low income, unemployed, alcoholism, drug addiction, transportation, low edu. Level, literacy, decrease access to med. care, intermediate, rehab)? @ -No Was there de-escalation of care discussed even if they declined (Discuss DNR or withdrawal of care, Hospice)? DNR status @ -No What co-morbidities impacted this encounter? (DM, HTN, Smoking, COPD, CAD, Cancer, CVA, ARF, Chemo, Hep., AIDS, mental health diagnosis, sleep apnea, morbid obesity)? @ -None Was patient admitted / discharged? Hospital course, mention meds given and route, prescriptions, significant lab abnormalities, going to OR and other pertinent info. @ -Patient presents for right-sided pleuritic what seems to be chest wall pain. However we will obtain cardiopulmonary workup. Patient was in agreement this plan. Vital signs within acceptable limits. EKG shows no signs of acute ischemia. Laboratory studies and chest x-ray will be obtained. We will initially attempt to treat the pain with nitroglycerin and reevaluate. 2 EKGs unremarkable for acute cardiopulmonary process. Chest x-ray unremarkable. D-dimer is within acceptable limits however we will still obtain CT imaging to evaluate the aorta for possible dissection. Patient in agreement this plan. Oratory studies otherwise remarkable for an undetectable troponin. CT of the chest abdomen pelvis negative for any obvious aortic injury. Repeat troponin undetectable. I did discuss possible admission for the patient at this time. We both agree that there is reasonable for her to be discharged home, with 2 undetectable troponins and appearing to be chest wall pain possible from nerve impingement or radiculopathy as it does radiate around the same rib space from her thoracic spine to the front. She is feeling improved following analgesia medications. I will discharge her home on Flexeril as well as lidocaine patches. Patient is already on oxycodone at home. She was in agreement this plan. I will provide the patient with a prescription for Flexeril, lidocaine patches. I instructed the patient to follow up with their PCP in the next 1-3 days.. I explained that the patient should return to the emergency department if they experience any worsening symptoms. Strict return precautions were discussed with the patient. The patient expressed understanding of these instructions. I answered all questions that the patient had. The patient was discharged home in good condition with their prescriptions and follow up information. Undiagnosed new problem with uncertain prognosis? @ -No Drug Therapy requiring intensive monitoring for toxicity (Heparin, Nitro, Insulin, Cardizem)? @ -No Were any procedures done? @ -No Diagnosis/symptom? @ -Chest wall pain, thoracic radiculopathy Acute, or Chronic, or Acute on Chronic? @ -Acute Uncomplicated (without systemic symptoms) or Complicated (systemic symptoms)? @ -Uncomplicated Side effects of treatment? @ -None Exacerbation, Progression, or Severe Exacerbation] @ -No Poses a threat to life or bodily function? @ -Unlikely - Lab Data Result diagrams: 08/12/23 09:28 08/12/23 09:28 Lab Results 08/12/23 08/12/23 08/12/23 Range/Units 08:43 09:28 09:28 WBC 11.5 H (3.8-10.6) k/uL RBC 5.27 (3.80-5.40) m/uL Hgb 14.8 (11.4-16.0) gm/dL Hct 46.9 H (34.0-46.0) % MCV 88.9 (80.0-100.0) fL MCH 28.1 (25.0-35.0) pg MCHC 31.6 (31.0-37.0) g/dL RDW 14.3 (11.5-15.5) % Plt Count 305 (150-450) k/uL MPV 8.2 Neutrophils % 74 % Lymphocytes % 16 % Monocytes % 5 % Eosinophils % 3 % Basophils % 1 % Neutrophils # 8.5 H (1.3-7.7) k/uL Lymphocytes # 1.9 (1.0-4.8) k/uL Monocytes # 0.6 (0-1.0) k/uL Eosinophils # 0.4 (0-0.7) k/uL Basophils # 0.1 (0-0.2) k/uL PT 9.9 L (10.0-12.5) sec INR 0.9 (<1.2) APTT 23.8 (22.0-30.0) sec D-Dimer 0.39 (<0.60) mg/L FEU Sodium (137-145) mmol/L Potassium (3.5-5.1) mmol/L Chloride (98-107) mmol/L Carbon Dioxide (22-30) mmol/L Anion Gap mmol/L BUN (7-17) mg/dL Creatinine (0.52-1.04) mg/dL Est GFR (CKD-EPI)AfAm (>60 ml/min/1.73 sqM) Est GFR (CKD-EPI)NonAf (>60 ml/min/1.73 sqM) Glucose (74-99) mg/dL POC Glucose (mg/dL) 139 H (70-110) mg/dL POC Glu Live Truck Operator ID Belval, Mely Calcium (8.4-10.2) mg/dL Magnesium (1.6-2.3) mg/dL Total Bilirubin (0.2-1.3) mg/dL AST (14-36) U/L ALT (4-34) U/L Alkaline Phosphatase (38-126) U/L Troponin I (0.000-0.034) ng/mL NT-Pro-B Natriuret Pep pg/mL Total Protein (6.3-8.2) g/dL Albumin (3.5-5.0) g/dL Amylase (30-110) U/L Lipase (23-300) U/L 08/12/23 08/12/23 08/12/23 Range/Units 09:28 09:28 12:42 WBC (3.8-10.6) k/uL RBC (3.80-5.40) m/uL Hgb (11.4-16.0) gm/dL Hct (34.0-46.0) % MCV (80.0-100.0) fL MCH (25.0-35.0) pg MCHC (31.0-37.0) g/dL RDW (11.5-15.5) % Plt Count (150-450) k/uL MPV Neutrophils % % Lymphocytes % % Monocytes % % Eosinophils % % Basophils % % Neutrophils # (1.3-7.7) k/uL Lymphocytes # (1.0-4.8) k/uL Monocytes # (0-1.0) k/uL Eosinophils # (0-0.7) k/uL Basophils # (0-0.2) k/uL PT (10.0-12.5) sec INR (<1.2) APTT (22.0-30.0) sec D-Dimer (<0.60) mg/L FEU Sodium 138 (137-145) mmol/L Potassium 4.7 (3.5-5.1) mmol/L Chloride 105 (98-107) mmol/L Carbon Dioxide 24 (22-30) mmol/L Anion Gap 9 mmol/L BUN 11 (7-17) mg/dL Creatinine 0.76 (0.52-1.04) mg/dL Est GFR (CKD-EPI)AfAm >90 (>60 ml/min/1.73 sqM) Est GFR (CKD-EPI)NonAf 87 (>60 ml/min/1.73 sqM) Glucose 96 (74-99) mg/dL POC Glucose (mg/dL) (70-110) mg/dL POC Glu Live Truck Operator ID Calcium 9.7 (8.4-10.2) mg/dL Magnesium 2.0 (1.6-2.3) mg/dL Total Bilirubin 0.7 (0.2-1.3) mg/dL AST 31 (14-36) U/L ALT 23 (4-34) U/L Alkaline Phosphatase 73 (38-126) U/L Troponin I <0.012 <0.012 (0.000-0.034) ng/mL NT-Pro-B Natriuret Pep 76 pg/mL Total Protein 8.1 (6.3-8.2) g/dL Albumin 4.5 (3.5-5.0) g/dL Amylase 62 (30-110) U/L Lipase 121 (23-300) U/L - EKG Data -: EKG Interpreted by Me EKG Comments: 12-lead Electrocardiogram Interpretation Note EKG was reviewed and interpreted by myself. 12-lead ECG performed at 0838 is interpreted by me as revealing normal sinus rhythm at a rate of 81 beats per minute. Borderline left axis deviation. [place] interval is 120 ms, QRS duration is 91 ms, QTc is 439 ms.. There were no ST or T wave abnormalities to suggest myocardial ischemia or injury. R wave progression across the precordium was satisfactory. By my interpretation this EKG is non-diagnostic for acute ischemia. 12-lead Electrocardiogram Interpretation Note EKG was reviewed and interpreted by myself. 12-lead ECG performed at 1015 is interpreted by me as revealing normal sinus rhythm at a rate of 68 beats per minute. Borderline left axis deviation. [place] interval is 115 ms, QRS duration is 91 ms, QTc is 439 ms.. There were no ST or T wave abnormalities to suggest myocardial ischemia or injury. R wave progression across the precordium was satisfactory. By my interpretation this EKG is non-diagnostic for acute ischem ia. Disposition Clinical Impression: Chest wall pain, Radiculopathy Disposition: HOME SELF-CARE Condition: Good Instructions (If sedation given, give patient instructions): Chest Wall Pain (ED) Prescriptions: Cyclobenzaprine [Flexeril] 5 mg PO BID PRN 7 Days #14 tab PRN Reason: Pain Lidocaine 5% Patch [Lidoderm 5% Patch] 1 patch TOPICAL DAILY PRN 14 Days #14 patch PRN Reason: Pain Is patient prescribed a controlled substance at d/c from ED?: No Referrals: Rohan Russell DO [Primary Care Provider] - 1-2 days Time of Disposition: 13:34
[2023-08-12 09:50] LABS: Basophils # (A) 0.1 k/uL (0-0.2); Basophils % (A) 1 %; Eosinophils # (A) 0.4 k/uL (0-0.7); Eosinophils % (A) 3 %; HCT 46.9 % (34.0-46.0); HGB 14.8 gm/dL (11.4-16.0); Lymphocytes # (A) 1.9 k/uL (1.0-4.8); Lymphocytes % (A) 16 %; MCH 28.1 pg (25.0-35.0); MCHC 31.6 g/dL (31.0-37.0); MCV 88.9 fL (80.0-100.0); Mean Platelet Volume 8.2; Monocytes # (A) 0.6 k/uL (0-1.0); Monocytes % (A) 5 %; Neutrophils # (A) 8.5 k/uL (1.3-7.7); Neutrophils % (A) 74 %; Platelet Count 305 k/uL (150-450); RBC 5.27 m/uL (3.80-5.40); RDW 14.3 % (11.5-15.5); WBC 11.5 k/uL (3.8-10.6)
[2023-08-12] MEDS: MORPHINE SULFATE 4 MG/ML SYRINGE IVP STA (09:50)
[2023-08-12] MEDS: LIDOCAINE 4% PATCH TOPICAL ONE (09:53)
[2023-08-12 10:10] LABS: INR 0.9 (<1.2); Partial Thromboplastin Time 23.8 sec (22.0-30.0); Prothrombin Time 9.9 sec (10.0-12.5)
[2023-08-12 10:33] LABS: ALT 23 U/L (4-34); AST 31 U/L (14-36); African American GFR (CKD) >90 (>60 ml/min/1.73 sqM); Albumin 4.5 g/dL (3.5-5.0); Alkaline Phosphatase 73 U/L (38-126); Amylase 62 U/L (30-110); Anion Gap 9 mmol/L; Blood Urea Nitrogen 11 mg/dL (7-17); Calcium 9.7 mg/dL (8.4-10.2); Carbon Dioxide 24 mmol/L (22-30); Chloride 105 mmol/L (98-107); Glucose 96 mg/dL (74-99); Lipase 121 U/L (23-300); Non-African American GFR(CKD) 87 (>60 ml/min/1.73 sqM); Sodium 138 mmol/L (137-145); Total Bilirubin 0.7 mg/dL (0.2-1.3); Total Protein 8.1 g/dL (6.3-8.2)
[2023-08-12 10:37] LABS: Potassium 4.7 mmol/L (3.5-5.1)
--- NOTE | 2023-08-12 10:40 | XR ---
EXAMINATION TYPE: XR chest 2V DATE OF EXAM: 08/12/2023 9:55 AM CLINICAL INDICATION:Female, 58 years old with history of Chest Pain; COMPARISON: Chest radiographs from 07/21/2021 TECHNIQUE: XR chest 2V Frontal and lateral views of the chest. FINDINGS: Lungs/Pleura: There is no evidence of pleural effusion, focal consolidation, or pneumothorax. Pulmonary vascularity: Unremarkable. Heart/mediastinum: Cardiomediastinal silhouette is unremarkable. Atherosclerotic calcifications are seen in the aorta. Musculoskeletal: No acute osseous pathology. IMPRESSION: Low lung volumes with a generalized hazy appearance which could represent atelectasis.
[2023-08-12 10:41] LABS: NT-Pro-B-Type Natriuretic Pept 76 pg/mL
[2023-08-12] MEDS: HYDROmorphone 0.5 MG/0.5 ML SYRINGE IVP STA (10:43)
[2023-08-12] MEDS: SODIUM CHLORIDE 0.9% 500 ML 500 ML IV STA (10:45)
[2023-08-12] MEDS: methylPREDNISolone SOD SUCCI 125 MG/2 ML VIAL IV STA (11:49)
--- NOTE | 2023-08-12 12:36 | CT ---
EXAMINATION TYPE: CT angio thor/abd pel aorta CT DLP: combined DLP 2956.8 mGycm, Automated exposure control for dose reduction was used. DATE OF EXAM: 08/12/2023 11:27 AM COMPARISON: . CLINICAL INDICATION:Female, 58 years old with history of pain, eval for aortic dissection; PHH, chest pain, SOB TECHNIQUE: Dissection protocol: Multiple axial CT images of the chest, abdomen, and pelvis were obtai angela prior to and after administration of IV contrast. 3-D reformats and maximum intensity projection reformats were performed on a separate workstation. Contrast used:100 ml mL of Isovue 370 without and with IV Contrast, Oral contrast used: without Oral Contrast FINDINGS: ARTERIAL VASCULATURE: The thoracic aorta is normal in course and caliber. No evidence of intramural h ematoma. There is mild atherosclerotic calcification. There is no evidence of aortic dissection, aneu rysm or acute aortic injury. Three-vessel aortic branch pattern without abnormality of the branch ves sels seen. The ascending aorta is up to 2.9 cm, descending 2.5 cm. Mild disease at the proximal celiac artery wi thout significant stenosis. Superior mesenteric, bilateral renal, inferior mesenteric arteries appear patent. There is somewhat greater mixed atherosclerotic disease in the infrarenal aorta and extendin g to the iliac arterial trees, however no evidence of dissection, significant stenosis, or penetratin g ulcer. No aneurysm. PULMONARY ARTERIAL VASCULATURE: Normal caliber. Pulmonary trunk is 2.7 cm. No evidence of filling def ect to suggest pulmonary embolus. VENOUS SYSTEM: Unremarkable. Lungs/pleura: Mild upper lobe emphysematous changes, right greater than left. Mild dependent atelecta sis bilaterally. No consolidation, pleural effusion, pneumothorax. Small calcified nodule in the righ t lower lobe above the diaphragm consistent with remote granulomatous disease. Heart: Size appears normal. Poor visualization of the interventricular septum on unenhanced scan, can be seen with anemia. Cardiac chambers show grossly normal enhancement. There are mild coronary arter ial calcifications. No pericardial effusion. Mediastinum: Nonenlarged and a couple of borderline prominent lymph nodes seen which are probably ilia ctive. No definite enlarged nodes by CT criteria. Partially calcified right subcarinal and right onel r lymph nodes consistent with remote granulomatous disease. Lower Neck: No significant findings. Thyroid appears unremarkable. Abdomen: Liver: Decreased parenchymal attenuation consistent with steatosis. Postcontrast, no evidence of mass . The portal veins are enhancing. Gallbladder and Bile ducts: Gallbladder is not seen, could be absent or contracted. Mildly prominent biliary tree, probably physiologic.. Pancreas: No significant abnormality. Couple small foci of low attenuation appear to represent insinu ating fat.. Spleen: Calcified granuloma. Heterogeneous appearance likely due to phase of contrast.. Adrenal glands: Unremarkable. Kidneys and Ureters: Kidneys enhance symmetrically. Transverse lie of the right kidney is noted. Ther e is no visible urinary tract calculus. No hydronephrosis.. Bladder: Unremarkable. Reproductive: Status post hysterectomy. Ovaries are not clearly seen, there is no pelvic mass suggest ed.. Stomach and Bowel: There is evidence of prior surgery, likely gastric bypass. Some heterogeneous incr eased attenuation within the gastric lumen, nonspecific but may represent ingested material. No evide nce of obstruction or extravasation. Some fluid in the duodenum and scattered fluid throughout small bowel loops without evidence of obstruction. There is a small duodenal diverticulum. What seems to be appendix looks normal. There is moderate stool throughout the colon, without clear evidence of an ac [place] abnormality. Peritoneum: No evidence of pneumoperitoneum, free fluid, or adenopathy. Musculoskeletal: No evidence of an acute osseous abnormality. There is mild/moderate multilevel degen erative disc disease throughout the thoracolumbar spine, greatest towards the thoracolumbar junction. No significant listhesis is seen. Mild degenerative change of the SI joints and hips. Lymph nodes: No evidence of lymphadenopathy. Abdominal wall/soft tissues: Likely scarring in the anterior abdominal wall. There is broad-based lax ity between the abdominal rectus muscles, which superiorly contains only fat but inferiorly also cont ains partial protrusion of nondistended bowel loops. A portion of this comes very close to the lax an terior abdominal wall musculature, and there could be a small fascial defect here. Additionally there is a small nodular density in the adjacent subcutaneous fat of the abdominal wall; it is uncertain i f this could represent a tiny protruding portion of small bowel such as Amaya's hernia, or could be a lymph node.. IMPRESSION: 1. No evidence of aortic aneurysm or dissection. 2. Mild/moderate mixed atherosclerotic disease. 3. No evidence of bowel obstruction, free fluid, or free air. Normal appendix. 4. Postoperative changes, likely from gastric bypass. Some heterogeneous material within the lumen m ay be something ingested. Correlate to exclude GI bleed. 5. Findings in the anterior abdominal wall could represent tiny Amaya's hernia, or possible lymph node. No evidence of obstructive change in the adjacent bowel. 6. Other chronic and likely incidental findings as above.
--- NOTE | 2023-08-12 12:42 | CT ---
EXAMINATION TYPE: CT thoracic spine wo con CT DLP: combined DLP 2956.8 mGycm, Automated exposure control for dose reduction was used. DATE OF EXAM: 08/12/2023 11:27 AM COMPARISON: . CLINICAL INDICATION:Female, 58 years old with history of t spine pain; PHH, back pain TECHNIQUE: Axial images of the thoracic spine were obtained without contrast. Coronal and sagittal reformats wer e performed. FINDINGS: Osseous mineralization appears appropriate. No evidence of lytic/blastic lesion or destructive proces s. Vertebral body heights are maintained. No fractures are identified. There is mild multilevel degen erative disc disease with disc space narrowing and predominantly anterior marginal osteophytes. No pathologic process is shown within the spinal canal, in the limits of unenhanced CT. No critical s tenosis of the osseous spinal canal or neural foramina. Paraspinous soft tissues show no acute abnormality. Please refer to separate CT angio aorta report fo r further description of findings. IMPRESSION: 1. No evidence of an acute osseous abnormality of the thoracic spine. 2. Mild multilevel degenerative disc disease.
[2023-08-12] MEDS: MAG HYDROX/AL HYDROX/SIMETH 30 ML, HYOSCYAMINE ELIXIR 10 ML, LIDOCAINE VISCOUS 2% 10 ML PO STA (12:44)
[2023-08-12] MEDS ORDERED: HYDROmorphone 1 MG/ML 1 ML SYRINGE IVP STA (12:56)
[2023-08-12 14:55] VITALS: BP 114/68; PULSE 78; RESP 18
== END 2023-08-12 14:45 | disposition home or self-care (01) ==
LOC: EC 08:25
DX: R07.89 Other chest pain (principal); M54.10 Radiculopathy, site unspecified; Z88.2 Allergy status to sulfonamides
CPT/HCPCS: 36415; 93005; 85379; 83880; 80053; 82150; 83690; 83735; 84484; 85025; 85610; 85730; 71046; 72128; 71275; 74174; 99285; 96374; 96375 ×3; J2270; J2930; J3360; J1170; Q9967

== ENCOUNTER → 2023-09-14 | Outpatient (CLI) | payer MEDICARE ==
--- NOTE | 2023-09-14 11:06 | US ---
EXAMINATION TYPE: US thyroid st tissue head/neck DATE OF EXAM: 09/14/2023 COMPARISON: NONE CLINICAL INDICATION: Female, 58 years old with history of E04.1 NONTOXIC SINGLE THYROID NODULE; follo w up thyroid nodules GLAND SIZE: Right Lobe: 4.3 x 1.4 x 1.5 cm Overall Parenchyma: homogeneous Left Lobe: 3.8 x 1.2 x 1.4 cm Overall Parenchyma: homogeneous Isthmus Thickness: 0.3 cm NODULES RIGHT: # of nodules measured on right: 2 1. 0.6 X 0.4 x 0.5 cm, lower , cystic or almost completely cystic, anechoic nodule, which is wider than tall, with smooth margins, without echogenic foci. TR2 nodule. Prior size: 0.8 x 0.7 x 0.5 cm 2. 1.0 X 0.7 x 0.9 cm, lower , mixed cystic and solid, hypoechoic nodule, which is wider than tall, with smooth margins, without echogenic foci. TR 3 nodule. Prior size: 1.2 x 1.0 x 0.8 cm LEFT: # of nodules measured on left: 0 ISTHMUS: # of nodules measured in the isthmus: 0 Bilateral neck scanned, no evidence of lymphadenopathy. IMPRESSION: Bilateral thyroid nodules with a TR 3 left nodule for which continued surveillance is recommended acc ording to ACR guidelines. 2017 ACR TI-RADS LEVEL: TR-RADS 3 - Mildly Suspicious: Follow if > 1.5 cm, FNA if > 2.5 cm *Highest TI-RADS level nodule reported
== END | disposition home or self-care (01) ==
LOC: RADUSWWP 09:41
PROVIDERS: ATTEND Family Medicine
DX: E04.2 Nontoxic multinodular goiter (principal)
CPT/HCPCS: 76536

== ENCOUNTER → 2024-08-16 | Outpatient (CLI) | payer MEDICARE ==
--- NOTE | 2024-08-16 10:01 | MM ---
Reason for Exam: Screening (asymptomatic). Last mammogram was performed 2 year(s) and 7 month(s) ago. Patient History: Menarche at age 10. First Full-Term at age 16. Left ovary removed at age 35. Right ovary removed at age 35. Hysterectomy at age 35. Postmenopausal. Hormonal Contraceptives for 5 years from age 16 until age 34. 03/2012, Bilateral Reduction. 07/24/2007, Benign Excisional Biopsy on the right side. 05/25/2010, Benign Core Biopsy on the right side. 07/14/2007, Benign Core Biopsy on the right side. Maternal cousin had breast cancer, age 29. Maternal aunt had breast cancer, age 53. Sister had breast cancer, age 53. Risk Values: Mary Ann 5 year model risk: 4.2%. NCI Lifetime model risk: 21.2%. Prior Study Comparison: 06/15/2019 Bilateral Diagnostic Mammogram, [facility]. 12/26/2020 Bilateral Screening Mammogram, [facility]. 01/15/2022 Bilateral MG 3D screening mammo w/cad, [facility]. Tissue Density: There are scattered areas of fibroglandular density. Findings: Analyzed By CAD. There is no suspicious group of microcalcifications or new suspicious mass in either breast. Surgical clip right breast. Benign-appearing calcifications. Overall Assessment: Benign, BI-RAD 2 Management: Screening Mammogram of both breasts in 1 year. . Patient should continue monthly self-breast exams. A clinical breast exam by your physician is recommended on an annual basis. This exam should not preclude additional follow-up of suspicious palpable abnormalities. Note on Mary Ann scores and lifetime risk: 1. A Mary Ann score greater than 3% is considered moderate risk. If this is the case, consider specialist referral to assess eligibility for a risk reducing agent. 2. If overall lifetime risk for the development of breast cancer is 20% or higher, the patient may qualify for future screening with alternating mammogram and breast MRI. [facility], , 08/16/2024 9:58 AM. Electronically signed and approved by: Mohan Cerrato M.D. Radiologis
== END | disposition home or self-care (01) ==
LOC: RADMAMWWP 09:43
PROVIDERS: ATTEND Family Medicine
DX: Z12.31 Encounter for screening mammogram for malignant neoplasm of breast (principal); R92.323 Mammographic fibroglandular density, bilateral breasts; Z78.0 Asymptomatic menopausal state; Z80.3 Family history of malignant neoplasm of breast; Z92.0 Personal history of contraception
CPT/HCPCS: 77063; 77067

== ENCOUNTER → 2024-08-16 | Outpatient (CLI) | payer MEDICARE ==
--- NOTE | 2024-08-16 10:27 | US ---
EXAMINATION TYPE: US thyroid st tissue head/neck DATE OF EXAM: 08/16/2024 COMPARISON: Prior thyroid ultrasound September 14, 2023 CLINICAL INDICATION: Female, 59 years old with history of E04.2 MUTINODULAR GOITER;thyroid nodule TECHNIQUE: Grayscale and color Doppler imaging of the thyroid gland. FINDINGS: GLAND SIZE: Right Lobe: 4.2 x 1.6 x 1.4 cm Overall Parenchyma: homogeneous Left Lobe: 3.6 x 1.3 x 1.3 cm Overall Parenchyma: homogeneous Isthmus Thickness: .4 cm NODULES RIGHT: # of nodules measured on right: 1 1. 1.0 X .8 x 1.0 cm, lower medial, solid or almost completely solid, hypoechoic nodule, which is w ider than tall, with smooth margins, without echogenic foci. TR4 Prior size: 1.0 x .7 x 1.0 cm LEFT: # of nodules measured on left: 0 ISTHMUS: # of nodules measured in the isthmus: 0 Bilateral neck scanned, no evidence of lymphadenopathy. Overall stable findings from most recent ultrasound. IMPRESSION: As above. Continued ultrasound monitoring advised. Highest TI-RADS level nodule reported: 2017 ACR TI-RADS LEVEL: TI-RADS 4 - Moderately Suspicious: Follow if > 1 cm, FNA if > 1.5 cm TI-RADS assessment score and recommendation for follow-up based on appropriate scoring and treatment protocols. TR3: If nodule size is ? 2.5 cm, FNA is recommended. If nodule size is ? 1.5 cm, follow-up imaging at 1, 3, and 5 years is recommended. TR4: If nodule size is ? 1.5 cm, FNA is recommended. If nodule size is ? 1.0 cm, follow-up imaging at 1, 2, 3, and 5 years is recommended. TR5: If nodule size is ? 1.0 cm, FNA is recommended. If nodule size is ? 0.5 cm, annual follow-up for up to 5 years is recommended. [email or web address] [facility], , 08/16/2024 10:24 AM
== END | disposition home or self-care (01) ==
LOC: RADUSWWP 09:39
PROVIDERS: ATTEND Family Medicine
DX: E04.1 Nontoxic single thyroid nodule (principal)
CPT/HCPCS: 76536